=== PATIENT | female | born 2000 | race Caucasian/White ===

== ENCOUNTER 2020-10-28 04:23 | Emergency (ER) | payer OTHER, SELFPAY ==
--- NOTE | ~2020-10-28 | XR_ITS ---
XR finger 3rd RT min 2V DATE: 10/28/2020 04:55 INDICATION: Punched a wall. Pain and numbness of third digit TECHNIQUE: 3 views COMPARISON: None FINDINGS: No fracture or dislocation, periosteal reaction or bone destruction, radiopaque soft tissue foreign body. Joint spaces are preserved. IMPRESSION: Negative Reviewed, dictated and finalized at location A. DIRECTOR IMPRESSION: Negative
--- NOTE | ~2020-10-28 | XR_ITS ---
XR hand RT min 3V DATE: 10/28/2020 04:55 INDICATION: Punched a wall. Pain and numbness of third digit TECHNIQUE: 3 views COMPARISON: 05/03/2013 right hand FINDINGS: No fracture or dislocation, periosteal reaction or bone destruction. IMPRESSION: Negative Reviewed, dictated and finalized at location A. OLOGIC MODELER IMPRESSION: Negative
[2020-10-28 04:25] VITALS: BP 129/71; PULSE 97; RESP 18; TEMP 35.7; O2SAT 100
--- NOTE | 2020-10-28 04:36 | ED.UPPEXIN ---
HPI - Extremity Injury (Upper) General Chief Complaint: Extremity Injury, Upper Stated Complaint: punched a metal wall, finger broken Time Seen by Provider: 10/28/20 04:26 Source: RN notes reviewed History of Present Illness HPI narrative: Patient presents to emergency department from home for right hand pain. Patient states this evening approximately 7:30 PM she became upset and punched a wall she states that since that time she is had pain and swelling in her right third digit just proximal to the PIP joint but states is the night is gone she is had pain throughout the entire hand she denies any other trauma or injury states she does not take any medication for the pain Related Data Allergies Allergy/AdvReac Type Severity Reaction Status Date / Time clonazepam Allergy Intermediate Other Verified 10/28/20 04:29 buspirone Allergy Unknown Nausea and Verified 10/28/20 04:29 Vomiting lemon Allergy Hives Verified 10/28/20 04:29 Review of Systems Review of Systems: Narrative: Gen.: Denies fevers or chills Musculoskeletal: See HPI Neuro: Denies numbness, tingling, weakness Skin: Denies rash Endo: Denies DM PMFSH Past Medical History Medical History (Updated 10/28/20 @ 04:57 by Gennaro El DO) ADHD No pertinent past medical history Surgical History Surgical History History of adenoidectomy History of tonsillectomy S/p bilateral myringotomy with tube placement As child Social History Social History Smoking status: Current every day smoker Tobacco type: cigarettes Additional smoking assessment comments: No vaping for 2 months Gender identity (if verbalized by the patient): Female Sexual Orientation (if Verbalized by the Patient): Straight or Heterosexual Exam Narrative: Exam Narrative: APPEARANCE: No acute distress, nontoxic, resting in bed Eyes: EOMI HEENT: Normocephalic, atraumatic, RESPIRATORY: No respiratory distress MUSCULOSKELETAl: Tender to palpation diffusely over the right dorsal hand with increased tenderness over the dorsal third digit over the PIP and MCP joint swelling ecchymosis present pain with any flexion of the right third MCP PIP or DIP joint no tenderness of digits 1, 2, 4, 5 will full range of motion of these joints capillary refill less than 3 seconds neurovascular intact NEURO: Awake and alert. Following commands, speech normal, no focal deficits SKIN:: Warm, dry. Normal Color no rash or lesions Course Course Emergency Course: Discussed with patient results of workup and diagnosis. Discussed need for follow-up with primary care, proper use of medication, and reasons to return to the emergency department. Patient understands and agrees to current treatment plan Vital Signs Vital signs: Vital Signs Temperature 96.3 F L 10/28/20 04:25 Pulse Rate 97 10/28/20 04:25 Respiratory Rate 18 10/28/20 04:25 Blood Pressure 129/71 10/28/20 04:25 Pulse Oximetry 100 10/28/20 04:25 Temperature 96.3 F L 10/28/20 04:25 Pulse Rate 97 10/28/20 04:25 Respiratory Rate 18 10/28/20 04:25 Blood Pressure 129/71 10/28/20 04:25 Pulse Oximetry 100 10/28/20 04:25 Procedures Orthopedic Splinting/Casting Injury #1: Side: right Upper Extremity Immobilizer: aluminum form splint and finger (other) Splint: prefabricated Pre-Formed: metal foam finger splint Pre-Procedure Neuro Vascular Exam: normal Post-Procedure Neuro Vascular Exam: normal MDM - Extremity Injury (Upper) Imaging Data Attestation: I personally reviewed and interpreted this imaging study as follows: My impression: Hand finger x-ray reviewed by myself shows no acute fracture Discharge Plan Discharge Clinical Impression: Contusion of right middle finger Patient Disposition: Home, Self-Care Condition: Stable Instructions: Antibiotic Form, Contu
== END 2020-10-28 05:07 | disposition home or self-care (01) ==
LOC: ANHED 05:02
PROVIDERS: Emergency Provider Emergency Medicine
DX: S60.031A Contusion of right middle finger without damage to nail, initial encounter (principal); F17.210 Nicotine dependence, cigarettes, uncomplicated; W22.09XA Striking against other stationary object, initial encounter
CPT/HCPCS: 29130; 73130; 73140; 99283

== ENCOUNTER 2020-11-19 03:43 | Emergency (ER) | payer OTHER, SELFPAY ==
--- NOTE | ~2020-11-19 | CT_ITS ---
EXAMINATION: CT abdomen pelvis w con DATE: 11/19/2020 05:23 INDICATION: Lower abdominal and back pain. TECHNIQUE: Computed tomography (CT) of the abdomen and pelvis was performed with 100 mL Omnipaque-350 intravenous contrast. Automated exposure control and iterative reconstruction technique were employe d. The dose-length product was 1237.75 mGy-cm. COMPARISON: 09/26/2014 FINDINGS: 3-4 mm right lower lobe nodule which given size and patient age is most likely benign requiring no fu rther follow-up. Heart size is normal. No pericardial or pleural effusion. Focal hepatic steatosis at the ligamentum teres. Gallbladder, spleen, pancreas, bilateral adrenal glands and kidneys are normal . Bowels including the appendix are normal. Bladder, anteverted uterus and bilateral adnexa are bharathi l. Minimal likely physiologic free fluid in the pelvis. No abscess or free intraperitoneal gas. No pa thologically enlarged abdominal or pelvic lymphadenopathy. Bones are normal. IMPRESSION: 1. No acute intra-abdominal/pelvic process. Reviewed, dictated and finalized at location A.
[2020-11-19 03:50] VITALS: BP 127/66; PULSE 87; RESP 20; TEMP 36.4; O2SAT 99
[2020-11-19] MEDS: KETOROLAC 30 MG/ML VIAL (*BKC) IV PUSH (04:15)
[2020-11-19 04:26] LABS: Basophils Absolute Auto 0.1 K/mm3 (0.0-0.1); Basophils Percent Auto 0.7 % (0.2-1.2); Eosinophils Absolute Auto 0.2 K/mm3 (0-0.3); Eosinophils Percent Auto 2.3 % (0-4.4); Hematocrit 41.3 % (37.0-47.0); Hemoglobin 13.4 g/dL (12.0-15.0); Immature Granulocyte Absolute 0.06 K/mm3 (0.00-0.031); Immature Granulocyte Percent A 0.7 % (0-0.5); Lymphocytes Absolute Auto 4.34 K/mm3 (0.9-3.2); Lymphocytes Percent Auto 47.5 % (18.3-44.2); Mean Corpuscular HGB Conc 32.4 g/dl (32-36); Mean Corpuscular Hemoglobin 27.5 pg (26-34); Mean Corpuscular Volume 84.6 fl (80-100); Monocytes Absolute Auto 0.9 K/mm3 (0.1-0.6); Neutrophils Absolute Auto 3.6 K/mm3 (1.3-6.7); Neutrophils Percent Auto 38.8 % (45.5-73.1); Platelet Count Result 315 k/mm3 (150-375); Red Blood Count 4.88 M/mm3 (4.2-5.4); Red Cell Distribution Width 13.3 % (11.5-14.5); White Blood Count 9.1 K/mm3 (4.5-10.0)
[2020-11-19 04:35] LABS: Prothrombin Time 13.7 Seconds (11.1-14.7)
[2020-11-19 04:36] LABS: Partial Thromboplastin Time 28.4 SECONDS (22.3-36.8)
[2020-11-19 04:38] LABS: Alanine Aminotransferase 13 U/L (4-35); Albumin Level 4.1 g/dL (3.5-5.1); Alkaline Phosphatase 59 U/L (38-126); Anion Gap 10 mmol/L (8-16); Aspartate Amino Transferase 18 U/L (14-36); Bilirubin,Total 0.2 mg/dL (0.2-1.3); Blood Urea Nitrogen 12 mg/dL (7-17); Calcium 9.2 mg/dL (8.4-10.2); Carbon Dioxide 21 mmol/L (22-30); Chloride 107 mmol/L (98-107); Estimated CRCL calculation 108 ml/min; Estimated Glomerular Filt Rate > 60; Glucose 88 mg/dL (65-105); Lipase 25 U/L (23-300); Potassium 3.3 mmol/L (3.4-5.0); Sodium 138 mmol/L (137-145)
[2020-11-19 04:42] LABS: Add Urine Microscopic? YES; Appearance Urine Cloudy (Clear); Bacteria Urine Trace /hpf; Bilirubin Urine Negative (Negative); Blood Urine Negative (Negative); Color Urine Yellow (Yellow); Glucose Urine UA Negative (Negative); Ketones Urine Negative (Negative); Leukocyte Esterase Ur Negative LEU/UL (Negative); Mucus Urine Few /lpf; Nitrate Urine Negative (Negative); Protein Urine 1+ mg/dL (Negative); RBC Urine 0-2 /hpf (0-2); Specific Grav Ur 1.023 (1.001-1.035); Squamous Epithelial Cell Urine Moderate /hpf (Few); Urobilinogen Urine Negative mg/dL (<2.0); WBC Urine 0-3 /hpf
--- NOTE | 2020-11-19 06:00 | ED.GENADULT ---
HPI - General Adult General Chief complaint: Unspecified Stated complaint: sore tail bone x 2 days;hips numb;pooping blood Time Seen by Provider: 11/19/20 03:48 Source: RN notes reviewed History of Present Illness HPI narrative: Patient presents to emergency department from home for low back pain. Patient states pain began 2 days ago and progressively worsening pain is located in the bilateral lower back just above the tailbone and radiates to the bilateral legs. She states is associated with numbness in the bilateral lateral thighs only she denies any known trauma or injury but at work the day prior she had stepped up into a very high trashcan trying to stop down the trash she denies any direct trauma she denies any fevers or chills chest pain shortness of breath abdominal pain nausea vomiting diarrhea bowel or bladder incontinence she states that she has good sensation with wiping as well as in the posterior thighs and around the rectum. Patient does note she is also had intermittent blood in her stool for the past 1 year has had no definitive work-up for this states it is intermittent denies any bowel movement for the past 2 days patient says back pain is worse when she sits down is unable to sit directly on the buttocks and with bending over Related Data Allergies Allergy/AdvReac Type Severity Reaction Status Date / Time clonazepam Allergy Intermediate Other Verified 10/28/20 04:29 buspirone Allergy Unknown Nausea and Verified 10/28/20 04:29 Vomiting lemon Allergy Hives Verified 10/28/20 04:29 Review of Systems Review of Systems: Narrative: Gen.: Denies fevers or chills ENT: Denies congestion Respiratory: Denies shortness of breath or cough CV: Denies chest pain or palpitations GI: Denies abdominal pain nausea, emesis or diarrhea denies bowel or bladder incontinence Musculoskeletal: See HPI Neuro: Reports numbness in the lateral thighs only Skin: Denies rash Except as documented, all other systems reviewed and negative [facility] Past Medical History Medical History (Updated 11/19/20 @ 06:42 by Gennaro El DO) ADHD No pertinent past medical history Surgical History Surgical History History of adenoidectomy History of tonsillectomy S/p bilateral myringotomy with tube placement As child Social History Social History Smoking status: Current every day smoker Tobacco type: cigarettes Additional smoking assessment comments: No vaping for 2 months Gender identity (if verbalized by the patient): Female Exam Narrative: Exam Narrative: APPEARANCE: No acute distress, nontoxic, resting in bed Eyes: EOMI HEENT: Normocephalic, atraumatic, CV: Regular rate and rhythm without murmur RESPIRATORY: No respiratory distress. Clear to auscultation bilaterally. Abdomen: Soft and nontender, no rebound or guarding Rectal: No hemorrhoids or fissures good rectal tone full sensation around the rectum small amount of soft on stool that is Hemoccult negative MUSCULOSKELETAl: Moves all extremities, no clubbing cyanosis or edema Back: No midline lumbar tenderness to palpation or step-off, tender to palpation over bilateral paravertebral muscles L4-5 , pain increased with forward flexion no overlying erythema or ecchymosis NEURO: Awake and alert. Following commands, speech normal muscle strength 5 out of 5 bilateral lower extremities, bilateral patellar reflex 2+ patient does have a localized strength of numbness in the bilateral lateral thighs in the region of the L5 dermatome she has positive pinprick sensation over the anterior and medial thighs and posterior thighs bilaterally there is no saddle anesthesia normal sensation around the rectum SKIN:: Warm, dry. Normal Color no rash or lesions Course Course Emergency Course: Patient was given ambulate in the emergency department no difficulty. Did discuss with the patient
[2020-11-19 06:12] VITALS: BP 117/69; PULSE 73; RESP 18; O2SAT 100
[2020-11-19] MEDS: MORPHINE SULFATE (*CRX) 4 MG/ML INJ IV PUSH (06:13)
[2020-11-19 06:57] VITALS: BP 107/68; PULSE 65; RESP 17; O2SAT 98
== END 2020-11-19 06:59 | disposition home or self-care (01) ==
PROVIDERS: Emergency Provider Emergency Medicine
DX: M54.42 Lumbago with sciatica, left side (principal); M54.41 Lumbago with sciatica, right side; F17.210 Nicotine dependence, cigarettes, uncomplicated
CPT/HCPCS: 36415; 74177; 80053; 81001; 81025; 83690; 85025; 85610; 85730; 96374; 96375; 99284; J1885; J2270; Q9967

== ENCOUNTER 2021-01-01 02:27 | Emergency (ER) | payer OTHER, SELFPAY ==
--- NOTE | ~2021-01-01 | CT_ITS ---
EXAMINATION: CT soft tissue neck w con EXAM DATE: 01/01/2021 03:59 INDICATION: Throat pain. TECHNIQUE: Spiral CT of the neck was performed following intravenous injection of 75 mL Omnipaque 350 . Axial, coronal and sagittal images were reviewed. The dose-length product (DLP) for this examinat ion was 591.22 mGy-cm. The exposure was tailored according to patient size (auto mA exposure control ), and iterative reconstruction (ASIR) was used as additional dose reduction technique. There is no prior study for comparison. FINDINGS: The thyroid gland is unremarkable. The submandibular and parotid glands are symmetric. There is no cervical lymphadenopathy. There are no masses identified. The superior mediastinum is unremarkable. The airway is unremarkable. Parapharyngeal and pre-glottic fat planes are preserve d. The opacified vasculature is patent. The orbits are unremarkable. Visualized sinuses and mas toid air cells are well aerated. Lung apices are clear. There is cervical spondylosis. IMPRESSION: Unremarkable CT soft tissue neck w con exam. Reviewed, dictated and finalized at location B.
--- NOTE | ~2021-01-01 | XR_ITS ---
EXAMINATION: XR chest 1V portable INDICATION: Cough TECHNIQUE: Portable AP chest at 0306 hours COMPARISON: 08/01/2019 FINDINGS: There is minimal airspace opacity in the right middle lobe. There is no pleural effusion or pneumothorax. The cardiomediastinal silhouette is normal. The visualized bones and soft tissues are unremarkable. IMPRESSION: 1. Minimal airspace opacity of the right middle lobe, likely atelectasis. Reviewed, dictated and finalized at location A.
[2021-01-01 02:34] VITALS: BP 128/76; PULSE 96; RESP 18; TEMP 36.8; O2SAT 98
[2021-01-01 03:22] LABS: Basophils Percent Auto 0.4 % (0.2-1.2); Eosinophils Absolute Auto 0.1 K/mm3 (0-0.3); Eosinophils Percent Auto 1.1 % (0-4.4); Hematocrit 41.2 % (37.0-47.0); Hemoglobin 13.2 g/dL (12.0-15.0); Immature Granulocyte Absolute 0.07 K/mm3 (0.00-0.031); Immature Granulocyte Percent A 0.8 % (0-0.5); Lymphocytes Absolute Auto 3.52 K/mm3 (0.9-3.2); Lymphocytes Percent Auto 38.7 % (18.3-44.2); Mean Corpuscular Hemoglobin 26.9 pg (26-34); Mean Corpuscular Volume 84.1 fl (80-100); Monocytes Absolute Auto 0.8 K/mm3 (0.1-0.6); Monocytes Percent Auto 8.7 % (2.6-8.5); Neutrophils Absolute Auto 4.6 K/mm3 (1.3-6.7); Neutrophils Percent Auto 50.3 % (45.5-73.1); Platelet Count Result 310 k/mm3 (150-375); Red Cell Distribution Width 13.1 % (11.5-14.5); White Blood Count 9.1 K/mm3 (4.5-10.0)
[2021-01-01 03:33] LABS: Anion Gap 5 mmol/L (8-16); Blood Urea Nitrogen 13 mg/dL (7-17); Calcium 9.2 mg/dL (8.4-10.2); Carbon Dioxide 28 mmol/L (22-30); Chloride 108 mmol/L (98-107); Estimated CRCL calculation 121 ml/min; Estimated Glomerular Filt Rate > 60; Glucose 96 mg/dL (65-105); Potassium 3.6 mmol/L (3.4-5.0); Sodium 141 mmol/L (137-145)
--- NOTE | 2021-01-01 04:45 | ED.GENADULT ---
HPI - General Adult General Chief complaint: Unspecified Stated complaint: Losing voice, tasted blood when I coughed. Time Seen by Provider: 01/01/21 02:33 Source: RN notes reviewed History of Present Illness HPI narrative: Patient presents to emergency department from home for hoarse voice. Patient states symptoms began 2 days ago. States that she had progressively worsening hoarse voice as well as a cough productive of phlegm and a sore throat. Patient states that she has been having recurrent problems with losing her voice over the past year she was recently seen by ENT with a scope performed May started on omeprazole. Patient denies any fevers or chills loss of taste or smell chest pain shortness of breath abdominal pain nausea vomiting or any other symptoms Related Data Allergies Allergy/AdvReac Type Severity Reaction Status Date / Time clonazepam Allergy Intermediate Other Verified 01/01/21 02:39 buspirone Allergy Unknown Nausea and Verified 01/01/21 02:39 Vomiting lemon Allergy Hives Verified 01/01/21 02:39 Review of Systems Review of Systems: Narrative: Gen.: Denies fevers or chills Eyes: Denies eye pain or visual change ENT: See HPI Respiratory: Denies shortness of breath reports cough CV: Denies chest pain or palpitations GI: Denies abdominal pain nausea, emesis or diarrhea Musculoskeletal: Denies back pain or muscle pain Neuro: Denies numbness, tingling, weakness or focal weakness Skin: Denies rash Except as documented, all other systems reviewed and negative [facility] Past Medical History Medical History (Updated 01/01/21 @ 04:48 by Gennaro El DO) ADHD No pertinent past medical history Surgical History Surgical History (Reviewed 08/05/19 @ 16:23 by Ventura Etienne, [facility], ) History of adenoidectomy History of tonsillectomy S/p bilateral myringotomy with tube placement As child Social History Social History Smoking status: Current every day smoker Tobacco type: cigarettes Additional smoking assessment comments: No vaping for 2 months Gender identity (if verbalized by the patient): Female Exam Narrative: Exam Narrative: APPEARANCE: No acute distress, nontoxic, resting in bed EYES: EOMI HEENT: Normocephalic, atraumatic, nares patent or mucosa moist erythema exudate posterior pharynx uvula midline no trismus bilateral tonsils 2+ with no exudate hoarse voice Neck: Supple no cervical lymphadenopathy RESPIRATORY: No respiratory distress Clear to auscultation bilaterally with no rhonchi wheezing or rales. CARDIOVASCULAR: Regular rate and rhythm without murmurs rubs or gallops. ABDOMINAL: Soft, nontender, nondistended, no rebound or guarding MUSCULOSKELETAl: Moves all extremities. No clubbing, cyanosis or edema. NEURO: Awake and alert. Following commands, speech normal, no focal deficits SKIN:: Warm, dry. No rashes lesions or abrasions PSYCHIATRIC: Normal affect/mood, Course Course Emergency Course: Reviewed old records including recent visit by Dr. Spencer Discussed with patient results of workup and diagnosis. Discussed need for follow-up with primary care, proper use of medication, and reasons to return to the emergency department. Patient understands and agrees to current treatment plan Vital Signs Vital signs: Vital Signs Temperature 98.2 F 01/01/21 02:34 Pulse Rate 96 01/01/21 02:34 Respiratory Rate 18 01/01/21 02:34 Blood Pressure 128/76 01/01/21 02:34 Pulse Oximetry 98 01/01/21 02:34 Temperature 98.2 F 01/01/21 02:34 Pulse Rate 96 01/01/21 02:34 Respiratory Rate 18 01/01/21 02:34 Blood Pressure 128/76 01/01/21 02:34 Pulse Oximetry 98 01/01/21 02:34 Medical Decision Making Vital Signs Vital Signs: Vital Signs Temperature 98.2 F 01/01/21 02:34 Pulse Rate 96 01/01/21 02:34 Respiratory Rate 18 01/01/21 02:34 Blood Pressure 128/76 01/01/21 02:34 Pulse Oximetry 9
[2021-01-01] MEDS: methylPREDNISolone SOD SUCC 125 MG VIAL IV PUSH (04:50)
[2021-01-01 04:58] VITALS: BP 121/64; PULSE 89; RESP 16; O2SAT 98
== END 2021-01-01 04:52 | disposition home or self-care (01) ==
PROVIDERS: Emergency Provider Emergency Medicine
DX: J02.9 Acute pharyngitis, unspecified (principal); R49.0 Dysphonia; F17.210 Nicotine dependence, cigarettes, uncomplicated
CPT/HCPCS: 36415; 70491; 71045; 80048; 81025; 85025; 87081; 87880; 96374; 99284; J2930; Q9967

== ENCOUNTER 2021-04-21 00:56 | Emergency (ER) | payer OTHER, SELFPAY ==
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
[2021-04-21 01:00] VITALS: BP 133/76; PULSE 87; RESP 16; TEMP 36.7; O2SAT 100
[2021-04-21] MEDS: MORPHINE SULFATE (*CRX) 4 MG/ML INJ IM (03:30)
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
== END 2021-04-21 05:05 | disposition home or self-care (01) ==
PROVIDERS: Emergency Provider Emergency Medicine
DX: S73.101A Unspecified sprain of right hip, initial encounter (principal); F17.210 Nicotine dependence, cigarettes, uncomplicated; X50.9XXA Other and unspecified overexertion or strenuous movements or postures, initial encounter
CPT/HCPCS: 73502; 96372; 99283; J2270

== ENCOUNTER 2021-07-03 18:32 | Emergency (ER) | payer OTHER, SELFPAY ==
[2021-07-03 18:37] VITALS: BP 116/75; PULSE 73; RESP 16; TEMP 36.1; O2SAT 99
[2021-07-03 19:06] LABS: Basophils Absolute Auto 0.1 K/mm3 (0.0-0.1); Eosinophils Absolute Auto 0.2 K/mm3 (0-0.3); Eosinophils Percent Auto 2.2 % (0-4.4); Hematocrit 44.1 % (37.0-47.0); Hemoglobin 14.4 g/dL (12.0-15.0); Immature Granulocyte Absolute 0.06 K/mm3 (0.00-0.031); Immature Granulocyte Percent A 0.8 % (0-0.5); Lymphocytes Absolute Auto 3.91 K/mm3 (0.9-3.2); Lymphocytes Percent Auto 49.9 % (18.3-44.2); Mean Corpuscular HGB Conc 32.7 g/dl (32-36); Mean Corpuscular Hemoglobin 27.5 pg (26-34); Mean Corpuscular Volume 84.3 fl (80-100); Mean Platelet Volume 10.2 fl (7.4-10.4); Monocytes Absolute Auto 0.9 K/mm3 (0.1-0.6); Monocytes Percent Auto 10.8 % (2.6-8.5); Neutrophils Absolute Auto 2.8 K/mm3 (1.3-6.7); Neutrophils Percent Auto 35.3 % (45.5-73.1); Platelet Count Result 341 k/mm3 (150-375); Red Blood Count 5.23 M/mm3 (4.2-5.4); White Blood Count 7.8 K/mm3 (4.5-10.0)
[2021-07-03 19:14] LABS: Add Urine Microscopic? YES; Appearance Urine Cloudy (Clear); Bacteria Urine Trace /hpf; Bilirubin Urine Negative (Negative); Blood Urine Negative (Negative); Color Urine Yellow (Yellow); Glucose Urine UA Negative (Negative); Ketones Urine Negative (Negative); Leukocyte Esterase Ur Negative LEU/UL (Negative); Mucus Urine Few /lpf; Nitrate Urine Negative (Negative); Protein Urine Negative (Negative); Specific Grav Ur 1.027 (1.001-1.035); Squamous Epithelial Cell Urine Many /hpf (Few); Urobilinogen Urine Negative mg/dL (<2.0)
[2021-07-03 19:22] LABS: Alanine Aminotransferase 14 U/L (4-35); Albumin Level 5.8 g/dL (3.5-5.1); Alkaline Phosphatase 63 U/L (38-126); Anion Gap 11 mmol/L (8-16); Aspartate Amino Transferase 17 U/L (14-36); Bilirubin,Total 0.4 mg/dL (0.2-1.3); Blood Urea Nitrogen 12 mg/dL (7-17); Calcium 9.9 mg/dL (8.4-10.2); Carbon Dioxide 21 mmol/L (22-30); Chloride 107 mmol/L (98-107); Estimated CRCL calculation 125 ml/min; Estimated Glomerular Filt Rate > 60; Glucose 110 mg/dL (65-110); Lipase 36 U/L (23-300); Potassium 4.7 mmol/L (3.4-5.0); Sodium 139 mmol/L (137-145)
--- NOTE | 2021-07-03 20:19 | PC.NURSE ---
pt approached intake desk and states she is leaving and will come back if her symptoms get worse.
== END 2021-07-03 20:19 | disposition left against medical advice (07) ==
LOC: ANHED 20:22
PROVIDERS: Emergency Provider Emergency Medicine
DX: R11.2 Nausea with vomiting, unspecified (principal)
CPT/HCPCS: 36415; 80053; 81001; 83690; 85025; 87086; 87088; 99199

== ENCOUNTER 2021-12-14 09:28 | Emergency (ER) | payer OTHER, SELFPAY ==
--- NOTE | ~2021-12-14 | XR_ITS ---
EXAMINATION: XR_CERV2-3V_CR EXAM DATE: 12/14/2021 10:13 INDICATION: No known recent injury provided at this time. Pain of the neck. Woke up with pain. TECHNIQUE: Cervical spine frontal, lateral, lateral swimmers, and open-mouth odontoid projections. There is no prior study for comparison. FINDINGS: Minimal cervical dextrocurvature which could be positional, muscle spasm or minimal scoliosis. There is no evidence of acute cervical fracture. The odontoid process is intact. Pre-dens space is normal . Prevertebral soft tissue is normal. There are no soft tissue abnormalities identified. Vertebral body and disc heights are well-maintained. The vertebral bodies are aligned. No appreciable arth ropathy. IMPRESSION: Minimal dextrocurvature, could be positional, muscle spasm or minimal scoliosis. Reviewed, dictated and finalized at location B. IMPRESSION: Minimal dextrocurvature, could be positional, muscle spasm or minim al scoliosis.
--- NOTE | ~2021-12-14 | XR_ITS ---
EXAMINATION: XR shoulder RT min 2V EXAM DATE: 12/14/2021 10:13 INDICATION: Right shoulder pain. TECHNIQUE: The following right shoulder projections obtained: frontal projection with internal rotati on, frontal projection with external rotation, Grashey, and scapular Y view (4+ views). There is no prior study for comparison. FINDINGS: No evidence of right shoulder rotator cuff calcific tendinosis. Unremarkable right sidney ohumeral and acromioclavicular joints. There are no acute fractures or dislocations identified. Ther e is no subcutaneous gas. The soft tissue is unremarkable. There are no radiopaque foreign bodies. IMPRESSION: 1. Unremarkable XR shoulder RT min 2V exam. Reviewed, dictated and finalized at location B.
[2021-12-14 09:41] VITALS: BP 116/73; PULSE 88; RESP 18; TEMP 36.4; O2SAT 100
--- NOTE | 2021-12-14 09:54 | ED.NECK ---
HPI - Neck Pain/Injury General Chief Complaint: Neck Pain/Injury <Daija Miller PA-C - Last Filed: 12/14/21 10:41> Stated Complaint: neck and shoulder pain/recently in another ed <SANDY Venegas Last Filed: 12/14/21 10:41> Time Seen by Provider: 12/14/21 09:40 <SANDY Venegas Last Filed: 12/14/21 10:41> Source: patient <SANDY Venegas Last Filed: 12/14/21 10:41> Mode of arrival: ambulatory <SANDY Venegas Last Filed: 12/14/21 10:41> Limitations: no limitations <SANDY Venegas Last Filed: 12/14/21 10:41> History of Present Illness HPI Narrative: This is a 21-year-old female that presents to the emergency department for right-sided neck pain. Present over the last 4 days. No recent injury or trauma. Reports she woke up with this pain. The pain radiates into the right shoulder. Worse with movement of the shoulder. She was seen in the ED yesterday and told she had a muscle spasm. Was given anti-inflammatories and cyclobenzaprine. She was taking these yesterday with relief. She woke up today and the pain was still there. She has not taken anything for pain yet today. Denies fever, rash, erythema, edema, or numbness. <SANDY Venegas Last Filed: 12/14/21 10:41> Related Data Allergies/Adverse Reactions: Allergies Allergy/AdvReac Type Severity Reaction Status Date / Time clonazepam Allergy Intermediate Other Verified 04/21/21 04:30 buspirone Allergy Unknown Nausea and Verified 04/21/21 04:30 Vomiting lemon Allergy Hives Verified 04/21/21 04:30 <SANDY Venegas Last Filed: 12/14/21 10:41> Review of Systems Review of Systems: CONSTITUTIONAL: Denies fever SKIN: Denies rash MUSCULOSKELETAL: Reports joint pain, and myalgia. NEUROLOGIC: Denies numbness, or weakness. <Daija Miller PA-C - Last Filed: 12/14/21 10:41> All systems reviewed & are unremarkable except as noted in HPI and below <Daija Miller PA-C - Last Filed: 12/14/21 10:41> PMFSH Past Medical History Medical History: Medical History (Updated 12/14/21 @ 10:40 by Daija Miller PA-C) ADHD History of borderline personality disorder <Daija Miller PA-C - Last Filed: 12/14/21 10:41> Surgical History Surgical History: Surgical History History of adenoidectomy History of tonsillectomy S/p bilateral myringotomy with tube placement As child <Daija Miller PA-C - Last Filed: 12/14/21 10:41> Social History Social History: Social History Smoking status: Current every day smoker Tobacco type: cigarettes Additional smoking assessment comments: No vaping for 2 months Gender identity (if verbalized by the patient): Female Sexual Orientation (if Verbalized by the Patient): Straight or Heterosexual <Daija Miller PA-C - Last Filed: 12/14/21 10:41> Exam Narrative: GENERAL: Well-appearing, well-nourished, and in no acute distress. HEAD: Normocephalic, atraumatic. EYES: EOMI. NECK: Supple. No adenopathy or masses. Tender to palpation of the right trapezius musculature CHEST: Clear to auscultation. No respiratory distress. No wheezes rales or rhonchi HEART: Regular rate and rhythm. No murmur heard. Normal peripheral pulses. EXTREMITIES: Mildly decreased active ROM in the right shoulder due to pain. No edema, erythema or warmth. Strength equal in bilateral upper extremities (5/5). Normal radial pulses SKIN: Warm, dry, no rash. NEURO: No focal deficits. Alert and oriented x3. PSYCH: Normal mood and affect <Daija Miller PA-C - Last Filed: 12/14/21 10:41> Course Vital Signs Vital signs: Vital Signs Temperature 97.6 F 12/14/21 09:41 Pulse Rate 88 12/14/21 09:41 Respiratory Rate 18 12/14/21 09:41 Blood Pressure 116/73 12/14/21 09:41 Pulse Oximetry 100 12/14/21 09:41
[2021-12-14] MEDS: ACETAMINOPHEN 500 MG TABLET 1000 MG PO (10:23)
[2021-12-14] MEDS: KETOROLAC (*BKC) 60 MG/2 ML VIAL IM (10:23)
== END 2021-12-14 11:22 | disposition home or self-care (01) ==
PROVIDERS: Emergency Provider General Practice
DX: M54.2 Cervicalgia (principal); M62.838 Other muscle spasm; F17.210 Nicotine dependence, cigarettes, uncomplicated
CPT/HCPCS: 72040; 73030; 96372; 99283; A9270; J1885

== ENCOUNTER 2022-03-04 19:30 | Emergency (ER) | payer OTHER, SELFPAY ==
--- NOTE | ~2022-03-04 | XR_ITS ---
EXAM: XR shoulder LT min 2V DATE: 03/04/2022 19:52 HISTORY: LT SHOULDER PAIN NO INJURY . COMPARISON: None available. FINDINGS: Normal mineralization. No fracture or dislocation. No lytic or blastic lesion. Joint space s are maintained. No erosion or periosteal change. Soft tissues within normal limits. IMPRESSION: No acute osseous finding in the left shoulder. Reviewed, dictated and finalized at location K.
[2022-03-04 19:51] VITALS: BP 121/69; PULSE 91; RESP 16; TEMP 36.5; O2SAT 96
[2022-03-04] MEDS: ACETAMINOPHEN 500 MG TABLET 1000 MG PO (20:22)
[2022-03-04] MEDS: KETOROLAC 30 MG/ML VIAL (*BKC) IM (20:23)
--- NOTE | 2022-03-04 21:08 | ED.UPPEXIN ---
HPI - Extremity Injury (Upper) General Chief Complaint: Extremity Injury, Upper Stated Complaint: Left shoulder pain Time Seen by Provider: 03/04/22 19:58 Source: patient History of Present Illness HPI narrative: Patient presents with left shoulder pain. Ports her symptoms started today started today getting progressively worse she attempted her previous prescribed muscle relaxer without relief so she came to the ER for further evaluation. Pain is achy starts on the top shoulder radiates up into her neck and base of her skull. Reports she had a similar event on her right shoulder a few months ago was treated here in the ER and felt improved. She denies any trauma to the area she is unsure what is triggering these muscle spasms. Denies any focal numbness or weakness Related Data Allergies Allergy/AdvReac Type Severity Reaction Status Date / Time clonazepam Allergy Intermediate Other Verified 03/04/22 19:57 buspirone Allergy Unknown Nausea and Verified 03/04/22 19:57 Vomiting lemon Allergy Hives Verified 03/04/22 19:57 Review of Systems Review of Systems: CONSTITUTIONAL: Denies fever, chills, or sweats. EYES: Denies visual changes, redness, or discharge. ENT: Denies rhinorrhea, congestion, sore throat, or otalgia. CARDIOVASCULAR: Denies chest pain, palpitations, or edema. RESPIRATORY: Denies cough or dyspnea. GASTROINTESTINAL: Denies abdominal pain, nausea, vomiting, or diarrhea. GENITOURINARY: Denies dysuria or hematuria. SKIN: Denies rash or itching. MUSCULOSKELETAL: Denies back pain, or myalgia. NEUROLOGIC: Denies headache, numbness, dizziness, or weakness. PSYCHIATRIC: Denies anxiety or depression. All systems reviewed & are unremarkable except as noted in HPI and below PMFSH Past Medical History Medical History ADHD History of borderline personality disorder Surgical History Surgical History History of adenoidectomy History of tonsillectomy S/p bilateral myringotomy with tube placement As child Social History Social History Smoking status: Current every day smoker Tobacco type: cigarettes Additional smoking assessment comments: No vaping for 2 months Gender identity (if verbalized by the patient): Female Sexual Orientation (if Verbalized by the Patient): Straight or Heterosexual Exam Narrative: GENERAL: Well-appearing, well-nourished, and in no acute distress. HEAD: Normocephalic, atraumatic. EYES: PERRLA and EOMI. ENT: Nares clear, no rhinorrhea or epistaxis. Mucous membranes moist. NECK: Supple. No masses. No JVD EXTREMITIES: Normal range of motion. Diffuse tenderness along the superior aspect of the left trapezius no focal bony tenderness Limited range of motion due to pain of the left shoulder SKIN: Warm, dry, no rash. NEURO: No focal deficits. Alert and oriented x3. PSYCH: Normal mood and affect. Course Reevaluation(s) Reevaluation #1: Patient reports large improvement in symptoms patient is comfortable outpatient plan. Date: 03/04/22 Time: 21:11 Vital Signs Vital signs: Vital Signs Temperature 36.5 C 03/04/22 19:51 Pulse Rate 91 03/04/22 19:51 Respiratory Rate 16 03/04/22 19:51 Blood Pressure 121/69 03/04/22 19:51 Pulse Oximetry 96 03/04/22 19:51 Oxygen Delivery Room Air 03/04/22 19:51 Temperature 36.5 C 03/04/22 19:51 Pulse Rate 91 03/04/22 19:51 Respiratory Rate 16 03/04/22 19:51 Blood Pressure 121/69 03/04/22 19:51 Pulse Oximetry 96 03/04/22 19:51 Oxygen Delivery Room Air 03/04/22 19:51 MDM - Extremity Injury (Upper) MDM Narrative Medical decision making narrative: H&P as above, vss, pt looks clinically well, exam tenderness along the left trapezius, imaging without acute process, additional labs/img considered, symptomatic relief available as needed, on reeval
== END 2022-03-04 21:28 | disposition home or self-care (01) ==
PROVIDERS: Emergency Provider Emergency Medicine; PCP Family Medicine
DX: M25.512 Pain in left shoulder (principal); F17.210 Nicotine dependence, cigarettes, uncomplicated
CPT/HCPCS: 73030; 96372; 99283; A9270; J1885

== ENCOUNTER 2022-07-12 00:17 | Emergency (ER) | payer OTHER, SELFPAY ==
--- NOTE | ~2022-07-12 | XR_ITS ---
EXAMINATION: XR ankle LT min 3V DATE: 07/12/2022 00:56 INDICATION: Left ankle pain TECHNIQUE: Anteroposterior, lateral, mortise, and additional oblique view of the ankle were obtained. COMPARISON: None. FINDINGS: No fracture, dislocation, or subluxation. The bones, soft tissues, and joint spaces are nor mal. IMPRESSION: 1. No acute osseous abnormality. Reviewed, dictated and finalized at location B. [employer]
[2022-07-12 00:41] VITALS: BP 127/77; PULSE 92; RESP 20; TEMP 36.9; O2SAT 100
--- NOTE | 2022-07-12 03:33 | ED.GENADULT ---
HPI - General Adult General Chief complaint: Extremity Injury, Lower Stated complaint: left ankle pain Time Seen by Provider: 07/12/22 03:27 History of Present Illness HPI narrative: 22-year-old female presenting to the emergency department for evaluation of an injury to her left ankle. Patient reports she was walking in heels and rolled her left ankle. Patient states she was able to walk on the ankle for another 30 minutes after the initial injury. Patient is reporting left lateral ankle pain. Patient denies any other pain or injury. Patient did not fall and did not strike her head. Patient denies any proximal lower leg pain. Patient does have prior history of ankle sprain. Related Data Allergies Allergy/AdvReac Type Severity Reaction Status Date / Time clonazepam Allergy Intermediate Other Verified 07/12/22 03:20 buspirone Allergy Unknown Nausea and Verified 07/12/22 03:20 Vomiting lemon Allergy Hives Verified 07/12/22 03:20 Review of Systems Review of Systems: CONSTITUTIONAL: Denies fever, chills, or sweats. EYES: Denies visual changes, redness, or discharge. ENT: Denies rhinorrhea, congestion, sore throat, or otalgia. CARDIOVASCULAR: Denies chest pain, palpitations, or edema. RESPIRATORY: Denies cough or dyspnea. GASTROINTESTINAL: Denies abdominal pain, nausea, vomiting, or diarrhea. GENITOURINARY: Denies dysuria or hematuria. SKIN: Denies rash or itching. MUSCULOSKELETAL: See HPI NEUROLOGIC: Denies headache, numbness, or weakness. PMFSH Past Medical History Medical History ADHD History of borderline personality disorder Surgical History Surgical History History of adenoidectomy History of tonsillectomy S/p bilateral myringotomy with tube placement As child Social History Social History Smoking status: Current every day smoker Tobacco type: cigarettes Additional smoking assessment comments: No vaping for 2 months Gender identity (if verbalized by the patient): Female Sexual Orientation (if Verbalized by the Patient): Straight or Heterosexual Exam Narrative: APPEARANCE: Well appearing, no pain, no distress, well-nourished. HEAD: normocephalic, atraumatic. EYES: PERRLA/EOMI, conjunctivae clear. NOSE: Normal no drainage NECK: Supple. No adenopathy, no masses. MUSCULOSKELETAL: Moves all extremities. Tenderness to left lateral ankle with associated edema. No proximal tib-fib tenderness. No medial tenderness to palpation of the ankle. No tenderness to the foot. NEURO: Alert. Cranial nerves II through XII intact. Grossly intact SKIN: Warm, dry. Normal Color PSYCHIATRIC: Normal affect/mood. Course Course Emergency Course: Patient was updated the results of the x-ray and on the treatment plan for home. All questions and concerns were addressed. Vital Signs Vital signs: Vital Signs Temperature 98.4 F 07/12/22 00:41 Pulse Rate 92 07/12/22 00:41 Respiratory Rate 20 07/12/22 00:41 Blood Pressure 127/77 07/12/22 00:41 Pulse Oximetry 100 07/12/22 00:41 Oxygen Delivery Room Air 07/12/22 00:41 Temperature 98.4 F 07/12/22 00:41 Pulse Rate 77 07/12/22 03:52 Respiratory Rate 16 07/12/22 03:52 Blood Pressure 108/62 07/12/22 03:52 Pulse Oximetry 97 07/12/22 03:52 Oxygen Delivery Room Air 07/12/22 00:41 Medical Decision Making Vital Signs Vital Signs: Vital Signs Temperature 98.4 F 07/12/22 00:41 Pulse Rate 92 07/12/22 00:41 Respiratory Rate 20 07/12/22 00:41 Blood Pressure 127/77 07/12/22 00:41 Pulse Oximetry 100 07/12/22 00:41 Oxygen Delivery Room Air 07/12/22 00:41 Temperature 98.4 F 07/12/22 00:41 Pulse Rate 77 07/12/22 03:52 Respiratory Rate 16 07/12/22 03:52 Blood Pressure 108/62 07/12/22 03:52 Pulse Oximetry 97 07/12/22 03:52 Oxygen D
[2022-07-12 03:52] VITALS: BP 108/62; PULSE 77; RESP 16; O2SAT 97
== END 2022-07-12 03:53 | disposition home or self-care (01) ==
PROVIDERS: Emergency Provider Emergency Medicine; PCP Family Medicine
DX: S93.402A Sprain of unspecified ligament of left ankle, initial encounter (principal); X50.9XXA Other and unspecified overexertion or strenuous movements or postures, initial encounter; F17.210 Nicotine dependence, cigarettes, uncomplicated
CPT/HCPCS: 73610; 99283

== ENCOUNTER 2023-11-05 12:06 | Observation (INO) | payer OTHER, SELFPAY ==
[2023-11-05] VITALS (8 sets, daily range): BP systolic 124; BP diastolic 72; PULSE 68–82; RESP 18; O2SAT 98–99; BMI 43.9
--- NOTE | 2023-11-05 12:39 | PC.NURSE ---
This RN called and spoke with Dr. Joseph Bejarano regarding pt complaints. MD orders to obtain a reactive NST then to discharge pt to ER for further evaluation. RN repeated orders back to confirm.
--- NOTE | 2023-11-05 12:42 | OBADM ---
This patient, Eileen López, admitted to the OB room 117 for observation for numbness and tingling in legs and arms. Patient/family oriented to hospital policies and general routines including ID bracelet, bed and alarms, visiting hours, pain management, procedures, bathroom and other care routines, personal items, smoking policy, room service/diet, and visiting hours. Patient/Family are encouraged to report perceived risks to care and to ask questions if they do not understand what they are told or what they should do.
--- NOTE | 2023-11-06 11:37 | PM.OBTRLD ---
OB - Triage/Final Diagnosis Visit Information Reason for evaluation: decreased movement Comments/Additional reasons for admission: I have assessed the risk for this patient, Eileen López, and determined that she would benefit from observation care. Evaluation Vital signs: Vital Signs - 24 hr 11/05/23 12:28 11/05/23 12:30 11/05/23 12:33 Pulse Rate 81 Respiratory Rate Blood Pressure 124/72 Pulse Oximetry 98 99 Oxygen Delivery 11/05/23 12:38 11/05/23 12:43 11/05/23 12:48 Pulse Rate Respiratory Rate Blood Pressure Pulse Oximetry 99 98 98 Oxygen Delivery 11/05/23 12:42 Pulse Rate 68 Respiratory Rate 18 Blood Pressure Pulse Oximetry Oxygen Delivery Room Air
== END 2023-11-05 13:10 | disposition home or self-care (01) ==
PROVIDERS: Admitting Provider Obstetrics & Gynecology; PCP Family Medicine; Visit Provider Obstetrics & Gynecology
DX: O36.8120 Decreased fetal movements, second trimester, not applicable or unspecified (principal); Z3A.26 26 weeks gestation of pregnancy
CPT/HCPCS: 59025; G0378; G0379

== ENCOUNTER 2024-01-17 23:33 | Observation (INO) | payer OTHER, SELFPAY ==
[2024-01-17 23:31] VITALS: BP 105/48; PULSE 84
--- NOTE | 2024-01-17 23:41 | OBADM ---
This patient, Eileen López, admitted to the OB room Labor/Delivery/Recovery 106 for observation. Patient/family oriented to hospital policies and general routines including ID bracelet, bed and alarms, visiting hours, pain management, procedures, bathroom and other care routines, personal items, smoking policy, room service/diet, and visiting hours. Patient/Family are encouraged to report perceived risks to care and to ask questions if they do not understand what they are told or what they should do.
[2024-01-17 23:45] VITALS: BP 110/47; PULSE 85
[2024-01-17 23:45] LABS: Appearance Urine Clear (Clear); Bilirubin Urine Negative (Negative); Blood Urine Negative (Negative); Color Urine Yellow (Yellow); Glucose Urine UA Negative (Negative); Ketones Urine Negative (Negative); Leukocyte Esterase Ur Negative LEU/UL (Negative); Nitrate Urine Negative (Negative); Protein Urine Negative (Negative); Specific Grav Ur 1.015 (1.001-1.035); Urobilinogen Urine 0.2 mg/dL (<2.0); pH Urine 5.5 (5.0-9.0)
[2024-01-17 23:47] LABS: Add Urine Microscopic? NO
--- NOTE | 2024-01-17 23:47 | PC.NURSE ---
RN discussed pts current smoking status. pt stated she smoked a cigarette and marijuana prior to her arrival to L&D. Pt educated on risks of smoking in . pt denies any questions or concerns a this time.
--- NOTE | 2024-01-18 00:27 | PC.NURSE ---
Addendum entered by Mounika Brandt RN 01/18/24 00:34: Pt left discharge instructions in room. Original Note: [id number]- Dr. Franco called and notified of pts arrival to L&D with complaints of contractions and pelvic pressure. Dr. Franco notified no contractions per palpation or toco. MD made aware that pt was marking movement. MD notified of latest UA results. MD notified that pt admitted to smoking marijuana and a cigarette prior to presentation at hospital and minimal variability in FHR that has since resolved. MD made aware that pt currently states that her contractions stopped . Orders received to discharge pt. 0008- pt departed L&D with significant other. All questions and concerns have been addressed and answered. Pt verbalizes understanding. No distress noted in patient.
--- NOTE | 2024-01-26 11:53 | PM.OBTRLD ---
OB - Triage/Final Diagnosis Visit Information Comments/Additional reasons for admission: I have assessed the risk for this patient, Eileen López, and determined that she would benefit from observation care. Evaluation Laboratory results: Laboratory Tests 01/17/24 23:37 Urine Color Yellow Urine Appearance Clear Urine pH 5.5 Ur Specific [place] 1.015 Urine Protein Negative Urine Glucose (UA) Negative Urine Ketones Negative Ur Blood (Man) Negative Urine Nitrate Negative Urine Bilirubin Negative Urine Urobilinogen 0.2 Leukocyte Esterase Rfl Negative Final Diagnosis (1) False labor: Code(s): O47.9 - False labor, unspecified Status: Acute
== END 2024-01-18 00:08 | disposition home or self-care (01) ==
PROVIDERS: Admitting Provider Obstetrics & Gynecology; PCP Family Medicine; Visit Provider Obstetrics & Gynecology
DX: O47.9 False labor, unspecified (principal); Z3A.00 Weeks of gestation of pregnancy not specified
CPT/HCPCS: 59025; 81003; 99199

== ENCOUNTER 2024-01-27 11:07 | Outpatient (CLI) | payer OTHER, SELFPAY ==
[2024-01-27 11:45] VITALS: BP 110/62; PULSE 73
[2024-01-27 11:47] LABS: Basophils Percent Auto 0.3 % (0.2-1.2); Eosinophils Absolute Auto 0.1 K/mm3 (0-0.3); Eosinophils Percent Auto 0.7 % (0-4.4); Hematocrit 39.7 % (37.0-47.0); Hemoglobin 13.1 g/dL (12.0-15.0); Immature Granulocyte Absolute 0.21 K/mm3 (0.00-0.031); Immature Granulocyte Percent A 1.7 % (0-0.5); Lymphocytes Absolute Auto 2.77 K/mm3 (0.9-3.2); Lymphocytes Percent Auto 23.1 % (18.3-44.2); Mean Corpuscular Hemoglobin 27.2 pg (26-34); Mean Corpuscular Volume 82.5 fl (80-100); Mean Platelet Volume 10.3 fl (7.4-10.4); Monocytes Absolute Auto 0.9 K/mm3 (0.1-0.6); Monocytes Percent Auto 7.2 % (2.6-8.5); Platelet Count Result 299 k/mm3 (150-375); Red Blood Count 4.81 M/mm3 (4.2-5.4); Red Cell Distribution Width 14.2 % (11.5-14.5)
[2024-01-27 11:50] LABS: Appearance Urine Cloudy (Clear); Bacteria Urine 2+ /hpf; Bilirubin Urine Negative (Negative); Blood Urine Negative (Negative); Color Urine Yellow (Yellow); Glucose Urine UA Negative (Negative); Ketones Urine Negative (Negative); Leukocyte Esterase Ur Trace LEU/UL (Negative); Nitrate Urine Negative (Negative); Non Pathogenic Casts 0-2; Protein Urine Negative (Negative); RBC Urine 0-2 /hpf (0-2); Specific Grav Ur 1.022 (1.001-1.035); Squamous Epithelial Cell Urine Moderate /hpf (Few); Urobilinogen Urine 0.2 mg/dL (<2.0); WBC Urine 0-5 /hpf (0-3)
[2024-01-27 11:56] LABS: Add Urine Microscopic? YES
[2024-01-27 11:58] LABS: Alanine Aminotransferase 20 U/L (6-35); Albumin Level 3.6 g/dL (3.5-5.1); Alkaline Phosphatase 137 U/L (38-126); Anion Gap 6 mmol/L (4-12); Aspartate Amino Transferase 18 U/L (14-36); Bilirubin,Total 0.4 mg/dL (0.2-1.3); Blood Urea Nitrogen 9 mg/dL (7-17); Calcium 9.1 mg/dL (8.4-10.2); Carbon Dioxide 19 mmol/L (22-30); Chloride 109 mmol/L (98-107); Estimated Glomerular Filt Rate > 60; Glucose 96 mg/dL (65-110); Potassium 3.8 mmol/L (3.4-5.0); Sodium 134 mmol/L (137-145); Uric Acid 5.3 mg/dL (2.5-7.5)
[2024-01-27 12:00] VITALS: BP 125/77; PULSE 70
[2024-01-27 12:01] VITALS: BP 110/62; PULSE 73
[2024-01-27 12:15] VITALS: BP 111/59; PULSE 70
[2024-01-27 12:15] LABS: Creatinine Urine 138.9 mg/dL
[2024-01-27 12:19] LABS: Total Protein Urine Random < 5 mg/dL; Ur Ttl Prot Creatinine Ratio < 0.04 mg/mg (0-0.20)
--- NOTE | 2024-01-27 12:28 | PM.OBTRLD ---
OB - Triage/Final Diagnosis Visit Information Date of evaluation: 01/27/24 Reason for evaluation: other (gestational htn) Comments/Additional reasons for admission: I have assessed the risk for this patient, Eileen López, and determined that she would benefit from observation care. Evaluation Laboratory results: Laboratory Tests 01/27/24 11:33 WBC 12.0 H RBC 4.81 Hgb 13.1 Hct 39.7 MCV 82.5 MCH 27.2 MCHC 33.0 RDW 14.2 Plt Count 299 MPV 10.3 Immature Gran % (Auto) 1.7 H Neut % (Auto) 67.0 Lymph % (Auto) 23.1 [place] % (Auto) 7.2 Eos % (Auto) 0.7 Baso % (Auto) 0.3 Lymph # (Auto) 2.77 [place] # (Auto) 0.9 H Eos # (Auto) 0.1 Baso # (Auto) 0.0 Abs Immat Gran (auto) 0.21 H Absolute Neuts (auto) 8.0 H Absolute Nucleated RBC 0.000 Nucleated RBC % 0.0 Sodium 134 L Potassium 3.8 Chloride 109 H Carbon Dioxide 19 L Anion Gap 6 BUN 9 Creatinine 0.60 L Estim Creat Clear Calc Not Reportable Estimated GFR > 60 Glucose 96 Uric Acid 5.3 Calcium 9.1 Total Bilirubin 0.4 AST 18 ALT 20 Alkaline Phosphatase 137 H Total Protein 7.0 Albumin 3.6 Urine Color Yellow Urine Appearance Cloudy H Urine pH 6.0 Ur Specific [place] 1.022 Urine Protein Negative Urine Glucose (UA) Negative Urine Ketones Negative Ur Blood (Man) Negative Urine Nitrate Negative Urine Bilirubin Negative Urine Urobilinogen 0.2 Leukocyte Esterase Rfl Trace H Urine RBC 0-2 Urine WBC 0-5 Ur Squamous Epith Cells Moderate Urine Bacteria 2+ H Urine Casts 0-2 U Random Total Protein < 5 Urine Creatinine 138.9 Protein/Creat Ratio 2 < 0.04 Vital signs: Vital Signs - 24 hr 01/27/24 12:01 01/27/24 11:45 01/27/24 12:00 Pulse Rate 73 73 70 Blood Pressure 110/62 125/77 Blood Pressure [Left Arm] 110/62 01/27/24 12:15 Pulse Rate 70 Blood Pressure 111/59 L Blood Pressure [Left Arm]
== END 2024-01-27 12:23 | disposition home or self-care (01) ==
LOC: ANHOBOP 11:15 → ANHOBPP 11:17
PROVIDERS: PCP Family Medicine; Visit Provider Obstetrics & Gynecology
DX: O13.9 Gestational [pregnancy-induced] hypertension without significant proteinuria, unspecified trimester (principal); Z3A.00 Weeks of gestation of pregnancy not specified
CPT/HCPCS: 36415; 59025; 80053; 81001; 82570; 84156; 84550; 85025; 99199

== ENCOUNTER 2024-02-04 16:41 | Inpatient (IN) | payer OTHER, SELFPAY ==
[2024-02-04] VITALS (36 sets, daily range): BP systolic 92–121; BP diastolic 38–72; PULSE 65–104; O2SAT 95–97; BMI 43.9
[2024-02-04 17:21] LABS: Basophils Percent Auto 0.3 % (0.2-1.2); Eosinophils Absolute Auto 0.1 K/mm3 (0-0.3); Eosinophils Percent Auto 0.7 % (0-4.4); Hematocrit 37.2 % (37.0-47.0); Hemoglobin 12.3 g/dL (12.0-15.0); Immature Granulocyte Absolute 0.19 K/mm3 (0.00-0.031); Immature Granulocyte Percent A 1.8 % (0-0.5); Lymphocytes Absolute Auto 2.56 K/mm3 (0.9-3.2); Lymphocytes Percent Auto 23.8 % (18.3-44.2); Mean Corpuscular HGB Conc 33.1 g/dl (32-36); Mean Corpuscular Hemoglobin 27.3 pg (26-34); Mean Corpuscular Volume 82.5 fl (80-100); Mean Platelet Volume 10.8 fl (7.4-10.4); Monocytes Absolute Auto 0.8 K/mm3 (0.1-0.6); Monocytes Percent Auto 7.8 % (2.6-8.5); Neutrophils Percent Auto 65.6 % (45.5-73.1); Platelet Count Result 251 k/mm3 (150-375); Red Blood Count 4.51 M/mm3 (4.2-5.4); Red Cell Distribution Width 14.1 % (11.5-14.5); White Blood Count 10.7 K/mm3 (4.5-10.0)
--- NOTE | 2024-02-04 17:28 | LDADM ---
This patient, Eileen López, was admitted to Labor/Delivery/Recovery 105 on 02/04/24 at 16:41. Plans for labor, pain management and were discussed with patient. Patient/family oriented to hospital policies and general routines including ID bracelet, bed and alarms, visiting hours, pain management, procedures, bathroom and other care routines, personal items, smoking policy, room service/diet and guest tray routines, security routines, and visiting hours. Patient/Family are encouraged to report perceived risks to care and to ask questions if they do not understand what they are told or what they should do. See OBIX for further documentation.
[2024-02-04] MEDS: DINOPROSTONE 10 MG VAG INSERT VAGINAL (18:03)
--- NOTE | 2024-02-04 19:15 | WPDANESEPP ---
Anes - Eval Pre Procedure Procedure: Labor epidural Date/Time: 02/04/24 19:15 Pre Op Diagnosis: Iol Patient Data Age: 23 Gender: F Height: 1.57 m Weight: 109 kg Last Vital Signs Pulse 65 02/04/24 19:00 BP 117/72 02/04/24 19:00 Pulse Ox 97 02/04/24 19:13 O2 Del Method Room Air 02/04/24 17:27 Allergies Allergy/AdvReac Type Severity Reaction Status Date / Time clonazepam Allergy Intermediate Other Verified 02/04/24 17:25 lemon Allergy Hives Verified 02/04/24 17:25 buspirone AdvReac Unknown Nausea and Verified 02/04/24 17:25 Vomiting red dye AdvReac Vomiting Verified 02/04/24 17:25 Home Medications Medication Instructions Recorded Confirmed Type labetalol 100 mg tablet 100 mg PO Q12H 11/05/23 02/04/24 History vitamin-ferrous fumarate 1 tablet PO DAILY 11/05/23 02/04/24 History 28 mg iron-folic acid 800 mcg tablet ( Vitamins with Minerals) Laboratory Tests 02/04/24 17:04 WBC 10.7 H K/mm3 (4.5-10.0) RBC 4.51 M/mm3 (4.2-5.4) Hgb 12.3 g/dL (12.0-15.0) Hct 37.2 % (37.0-47.0) MCV 82.5 fl (80-100) MCH 27.3 pg (26-34) MCHC 33.1 g/dl (32-36) RDW 14.1 % (11.5-14.5) Plt Count 251 k/mm3 (150-375) MPV 10.8 H fl (7.4-10.4) Immature Gran % (Auto) 1.8 H % (0-0.5) Neut % (Auto) 65.6 % (45.5-73.1) Lymph % (Auto) 23.8 % (18.3-44.2) [place] % (Auto) 7.8 % (2.6-8.5) Eos % (Auto) 0.7 % (0-4.4) Baso % (Auto) 0.3 % (0.2-1.2) Lymph # (Auto) 2.56 K/mm3 (0.9-3.2) [place] # (Auto) 0.8 H K/mm3 (0.1-0.6) Eos # (Auto) 0.1 K/mm3 (0-0.3) Baso # (Auto) 0.0 K/mm3 (0.0-0.1) Abs Immat Gran (auto) 0.19 H K/mm3 (0.00-0.031) Absolute Neuts (auto) 7.0 H K/mm3 (1.3-6.7) Absolute Nucleated RBC 0.000 K/mm3 (0.0-0.012) Nucleated RBC % 0.0 % (0.0-0.2) RPR Pending HIV 1&2 Ab/P24 Ag 4thGn Pending Blood Type A Positive Antibody Screen Negative Patient hx anesthesia problems: none Family hx anesthesia problems: none Results Review: All pre-operative results and documents have been reviewed as part of the pre-operative evaluation. [facility] Past Medical History Medical History (Updated 02/04/24 @ 19:16 by Rita Zhao CRNA) ADHD Anxiety and depression Asthma History of borderline personality disorder PIH ( induced hypertension) Surgical History Surgical History History of adenoidectomy History of tonsillectomy S/p bilateral myringotomy with tube placement As child Family History Family History Mother Diabetes mellitus Father Bipolar 1 disorder Other Cancer Social History Social History Smoking status: Current every day smoker Tobacco type: e-cigarettes/vaping Second hand tobacco smoke exposure: Yes Additional smoking assessment comments: No vaping for 2 months Substance use: never Do You Feel Safe in your Home?: Yes Lack of Transportation: No Lack of Food: Never True Current Housing: I Have Housing Concerned About Future Housing: No Difficulty Paying Gas/Electric Bills: No Difficulty Paying for Meds: No Currently Unemployed: No Education: High School Diploma/GED Difficulty w/ Childcare or Family Care: No Gender identity (if verbalized by the patient): Female Sexual Orientation (if Verbalized by the Patient): Straight or Heterosexual Spiritual care concerns: No Exam Day of Procedure 02/04/24 19:15 Patient weight: morbidly obese Heart: regular rate and rhythm Lungs: clear to auscultation Airway: Mallampati scale Neurological: alert and oriented
[2024-02-04 20:06] LABS: HIV 1/2 Ab P24 Ag Result Negative (Negative)
[2024-02-05] VITALS (289 sets, daily range): BP systolic 86–154; BP diastolic 44–101; PULSE 53–147; RESP 20; TEMP 36.3–37.4; O2SAT 85–100
[2024-02-05] MEDS: OXYTOCIN 30 UNITS/NS 500 ML 30 UNITS/500 ML BAG 6 UNITS IV CONT (05:44)
--- NOTE | 2024-02-05 06:37 | WPDOBADMIT ---
Obstetrics - Admit Note Admission Note: record reviewed. Additions to the history and/or subsequent changes in the physical findings follow. 23 y/o G1 at 40 weeks here for scheduled induction of labor. GBS neg. AVSS NST reactive TOCO: contractions every 2-3 min ABD soft, nontender, gravid, vertex EXT nontender Cervix 3/50/-2. AROM with clear fluid. IUPC placed. A: IUP at term desiring induction of labor. P: Oxytocin. Anticipate .
[2024-02-05] MEDS: ONDANSETRON INJ 4 MG/2 ML VIAL IV PUSH (06:50)
[2024-02-05] MEDS: LACTATED RINGERS 1,000 ML 125 ML IV CONT ×2 (07:18→12:52)
--- NOTE | 2024-02-05 12:19 | PM.OBPNLAB ---
Pain Control Date/time seen: 02/05/24 12:19 Comfortable. Pelvic Exam Dilation (cm): 4 Effacement (%): 100 station: -2 Contractions Contraction frequency: 3 Contraction pattern: Regular Status status: Category l Assessment and Plan Comments: Continue labor.
--- NOTE | 2024-02-05 16:29 | PM.OBPNLAB ---
Pain Control Date/time seen: 02/05/24 16:29 Comments: Comfortable. Pelvic Exam Dilation (cm): 7 Effacement (%): 100 station: -1 Contractions Contraction frequency: 3 Contraction pattern: Regular Status status: Category l Assessment and Plan Comments: Continue labor.
--- NOTE | 2024-02-05 16:31 | PM.IMHP ---
H&P: HPI History of Present Illness Date/Time: 02/05/24 16:31 Chief Complaint: Here for induction of labor Narrative: 23 y/o G1 at 40 weeks here for elective induction of labor. Had Cervidil last night, was withdrawn this morning. Now on oxytocin. Comfortable with epidural. GBS neg. EFW 4 weeks ago 5#14oz. Review of Systems Review of Systems: All systems reviewed & are unremarkable except as noted in HPI and below PMFSH Past Medical History Medical History ADHD Anxiety and depression Asthma History of borderline personality disorder PIH ( induced hypertension) Surgical History Surgical History History of adenoidectomy History of tonsillectomy S/p bilateral myringotomy with tube placement As child Family History Family History Mother Diabetes mellitus Father Bipolar 1 disorder Other Cancer Social History Social History Smoking status: Current every day smoker Tobacco type: e-cigarettes/vaping Second hand tobacco smoke exposure: Yes Additional smoking assessment comments: No vaping for 2 months Substance use: never Do You Feel Safe in your Home?: Yes Lack of Transportation: No Lack of Food: Never True Current Housing: I Have Housing Concerned About Future Housing: No Difficulty Paying Gas/Electric Bills: No Difficulty Paying for Meds: No Currently Unemployed: No Education: High School Diploma/GED Difficulty w/ Childcare or Family Care: No Gender identity (if verbalized by the patient): Female Sexual Orientation (if Verbalized by the Patient): Straight or Heterosexual Spiritual care concerns: No Meds Home Medications and Allergies Home Medications Medication Instructions Recorded Confirmed Type labetalol 100 mg tablet 100 mg PO Q12H 11/05/23 02/04/24 History vitamin-ferrous fumarate 1 tablet PO DAILY 11/05/23 02/04/24 History 28 mg iron-folic acid 800 mcg tablet ( Vitamins with Minerals) Allergies Allergy/AdvReac Type Severity Reaction Status Date / Time clonazepam Allergy Intermediate Other Verified 02/04/24 17:25 lemon Allergy Hives Verified 02/04/24 17:25 buspirone AdvReac Unknown Nausea and Verified 02/04/24 17:25 Vomiting red dye AdvReac Vomiting Verified 02/04/24 17:25 Vital Signs Vital Signs - 24 hr 02/04/24 17:05 02/04/24 17:15 02/04/24 17:30 Temperature Pulse Rate 91 89 84 Blood Pressure 116/47 L 120/48 L 112/60 Pulse Oximetry Oxygen Delivery 02/04/24 17:45 02/04/24 18:08 02/04/24 18:13 Temperature Pulse Rate 82 Blood Pressure 119/42 L Pulse Oximetry 97 97 Oxygen Delivery 02/04/24 18:15 02/04/24 18:18 02/04/24 18:23 Temperature Pulse Rate 89 Blood Pressure 103/42 L Pulse Oximetry 97 97 Oxygen Delivery 02/04/24 18:28 02/04/24 18:30 02/04/24 18:33 Temperature Pulse Rate 79 Blood Pressure 92/38 L Pulse Oximetry 96 96 Oxygen Delivery 02/04/24 18:38 02/04/24 18:43 02/04/24 18:45 Temperature Pulse Rate 76 Blood Pressure 95/56 L Pulse Oximetry 96 96 Oxygen Delivery 02/04/24 18:48 02/04/24 18:53 02/04/24 18:58 Temperature Pulse Rate Blood Pressure Pulse Oximetry 96 96 96 Oxygen Delivery 02/04/24 19:00 02/04/24 19:03 02/04/24 19:08 Temperature Pulse Rate 65 Blood Pressure 117/72 Pulse Oximetry 96 96 Oxygen Delivery 02/04/24 19:13 02/04/24 19:15 02/04/24 19:18 Temperature Pulse Rate 84 Blood Pressure 116/67 Pulse Oximetry 97 96 Oxygen Delivery 02/04/24 19:23 02/04/24 19:28 02/04/24 19:30 Temperature Pulse Rate 79 Blood Pressure 121/66 Pulse Oximetry 95 96 Oxygen Delivery 02/04/24 19:33 02/04/24 19:38 02/04/24
[2024-02-05 16:44] LABS: Rapid Plasma Reagin Non-Reactive (NonReactive)
[2024-02-05] MEDS: OXYTOCIN 30 UNITS/NS 500 ML 30 UNITS/500 ML BAG 999 UNITS IV CONT (20:00)
--- NOTE | 2024-02-05 20:16 | P.PCNOB_ITS ---
OB - Vaginal Delivery Note Procedure Delivery date: 02/05/24 Events: Elective Induction of Labor Induction method: Per Cervidil Protocol Delivery augmentation: Rupture of Membranes and Pitocin Delivery monitor: External FHT, External Uterine and Internal Uterine Route of delivery: Laceration Description: Perineal - 1st Degree Delivery repair: vicryl (3-0) Specimen: Yes (cord blood) Quantitative Blood Loss (ml): 85 Anesthesia type: Local (1% lidocaine) Disposition: PACU Complications: Other complications (shoulder dystocia) Narrative: 23 y/o G1 at 40 weeks gestation who presented to the hospital for induction of labor. Cervidil was placed overnight, then withdrawn the following morning. Oxytocin was administered intravenously. Amniotomy was performed with return of clear fluid. She received an epidural for pain control. Her labor progressed and her cervix dilated completely. She pushed with good effort and delivered the 's head to the perineum in ROP position. A loose nuchal cord was noted. A shoulder dystocia was encountered, and traction / fundal pressure were strictly avoided. McRobert's maneuver was employed, and the posterior shoulder was able to be rotated anteriorly, resolving the dystocia. The body easily delivered. The cord was reduced, and the nose and mouth were bulb suctioned. After a delay, the cord was clamped and cut. The was handed off the field. Cord blood was collected. The placenta delivered spontaneously and was grossly normal in appearance. The usual 3 vessel cord was noted. A first degree midline perineal laceration was sustained. This was reapproximated using 3 0 Vicryl in running fashion. Excellent hemostasis resulted as did excellent reapproximation of the normal anatomy. Needle and instrument counts were correct. The patient was taken to recovery room in stable condition. The infant went to the nursery in stable condition. I was present and scrubbed for the entire delivery. [place] Baby Date of : 02/05/24 Time of : 19:52 Weeks of gestation at delivery: 40 gender: Female Weight (pounds): 6 Weight (ounces): 14 presentation: vertex position: Right Occiput Posterior Placenta delivery description: Spontaneous and Normal Configuration Cord Vessel Description: 3 Vessels, Nuchal Cord and Delayed Cord Clamping score one minute: 7 score five minutes: 9
--- NOTE | 2024-02-05 20:21 | PM.OBDSVD ---
DS: Admitting Diagnosis Discharge Date 02/07/24 Admitting Diagnosis IUP at 40 weeks DS: Discharge Diagnosis Discharge Diagnosis (1) (normal spontaneous vaginal delivery): Code(s): O80 - Encounter for full-term uncomplicated delivery Status: Acute OB - DS: Summary OB Procedures : None OB Procedures Intrapartum: Spontaneous Vag Delivery OB Procedures: : None Peripartum Data Laceration Description: Perineal - 1st Degree Time Spent with Patient Time attestation: Total time spent providing and/or coordinating discharge services: DS: Data Data Completed and Pending Labs on day of discharge: Labs from last 24 hours 02/04/24 17:04 RPR Non-reactive Discharge Plan Discharge Attending physician on discharge: Jcarlos Franco Discharging Clinician: Jcarlos Franco Patient Disposition: Home, Self-Care Activity: pelvic rest Diet: regular Discharge Instructions: Education: Mom and Baby Guide Given to: Mother Follow-Up: Call your delivering provider's office for an appointment to be seen in: 6 Weeks Mom and baby should come to the [facility] for the follow-up appointment. Appointment Date/Time: February 09, 2024 at 10:00 am What to expect at your follow-up visit: Physical Assessment Call [phone] if you are unable to keep your appointment time. BREAST CARE: * Wear a snug supportive bra. * For engorgement discomfort: Breast Feeding: * Apply warm moist washcloths * Express milk as needed to relieve engorgement * Wear loose clothing Bottle Feeding: * May apply ice packs * For sore nipples: * Identify correct latch-on * Apply warm moist washcloths before and after nursing * Air dry nipples after nursing * May apply Lansinoh cream to nipples EPISIOTOMY/PERINEAL CARE: * Until bleeding stops, use your juani bottle after urinating * Change your pad frequently throughout the day * You may take sitz baths several times a day (fill your bathtub with warm water and soak for 20 minutes.) Do NOT bathe in the water * No tub baths until seen by your physician - You may shower ACTIVITY: * Rest as much as possible. * Do not exercise or lift anything heavier than your baby (such as laundry or other children.) * Avoid stairs or driving as much as possible. * Do not put anything into the vagina. No douching, tampons, or sexual activity until seen by physician. NOTIFY PHYSICIAN IF YOU HAVE ANY QUESTIONS OR IF ANY OF THE FOLLOWING SYMPTOMS OCCUR: * If your episiotomy or incision becomes red, swollen, or more painful than what you have experienced in the hospital. * If your vaginal bleeding becomes foul smelling. * If your vaginal bleeding becomes more heavy than a period or if your bleeding changes from pink to bright red. However, you may pass an occasional walnut-sized clot once or twice for the first week . * If you experience a sharp, shooting pain in you calves. * If you discover a hard, reddened area on your breast or if you experience flu-like symptoms. DIET: * Eat regular, well-balanced meals. * Drink plenty of fluids daily. If , drink to thirst. Call or return if temperature above 100.4? F, increased abdominal pain, increased vaginal bleeding or any new problems. Stand Alone Forms: General Discharge Information Follow-up/Referrals: Jorge Hernandez MD [Physician] - 6 Weeks Discharge Medications: New ibuprofen 600 mg tablet 600 mg PO Q6H PRN (Reason: cramps) Qty: 30 0RF [id number] [Fioricet] 50-300-40 mg capsule 1 - 2 cap PO Q4H PRN (Reason: headache) Qty: 30 0RF Continued vit-iron fum-folic ac [ Vitamin with Minerals] 28 mg iron- 800 mcg Tablet 1 tablet PO DAILY labetalol 100 mg Tablet 100 mg PO Q12H Date of admission: 02/04/24 16:41 Primary Care
[2024-02-05] MEDS: COSYNTROPIN 0.25 MG/ML VIAL 1 MG IV PUSH (20:24)
[2024-02-05] MEDS: OXYTOCIN 30 UNITS/NS 500 ML 30 UNITS/500 ML BAG 125 UNITS IV CONT (20:29)
[2024-02-05] MEDS: WITCH HAZEL 40 PADS 1 PAD TOPICAL (21:35)
[2024-02-05] MEDS: BENZOCAINE 20% AER SPR (*SP) 56 GM CAN 1 SPRAY TOPICAL (21:36)
--- NOTE | 2024-02-05 22:05 | OBPPTRN ---
Patient transferred to post room #287 via wheelchair. Oriented to unit, room, information board, rooming in, admission packet and security measures. Patient verbalizes understanding.
[2024-02-06] VITALS (7 sets, daily range): BP systolic 77–121; BP diastolic 34–74; PULSE 60–84; RESP 16–20; TEMP 36.4–37.1; O2SAT 98–99
[2024-02-06] MEDS: IBUPROFEN 600 MG TABLET PO ×3 (00:58→17:46)
[2024-02-06] MEDS: ACETAMINOPHEN 325 MG TABLET 650 MG (04:00)
--- NOTE | 2024-02-06 04:22 | PC.NURSE ---
0400- Patient called out to nurses station stating that she had a migraine since coming up and was feeling light headed while sitting up to feed baby. Patient stated that they had difficulty placing her epidural and planned to keep the catheter in but it was removed. She stated that she feels better when laying down and the pain radiates to her neck when upright. 0418 - This RN relayed above information to accounting professional anesthesiologist Rosalind Zhao. Rosalind Zhao ordered [place] 5 to be given for pain once until they are able to come and do an assessment in the morning.
[2024-02-06] MEDS: HYDROcodone/acetaminophen (*CRX) 5-325 MG TABLET 1 TAB PO (04:36)
[2024-02-06 05:46] LABS: Hemoglobin 12.2 g/dL (12.0-15.0)
--- NOTE | 2024-02-06 07:55 | WPDANLDPN2 ---
Anes-Prog Note L&D Date/Time: 02/06/24 07:55 Comfortable throughout: labor and delivery Neuraxial method: epidural Epidural/Spinal procedure site: clean & non-tender Neuro status: Neuro function grossly intact. Cardiovascular status: normal Respiratory status: normal Airway patency: baseline Mental status: baseline Post-Op hydration status: normal Vital Signs: Last Vital Signs Temp 36.6 C 02/06/24 04:26 Pulse 60 02/06/24 04:26 Resp 20 02/06/24 04:26 BP 107/52 L 02/06/24 04:26 Pulse Ox 98 02/06/24 04:26 O2 Del Method Room Air 02/04/24 17:27 Pain score (VAS): 5/10 I/O: Intake & Output 02/05/24 02/05/24 02/06/24 15:59 23:59 07:59 Intake Total 1000 Output Total 85 Balance 1000 -85 Post-procedural complaints: other (headache (occipital), worse with sitting and standing) Patient feedback: Patient satisfied with anesthetic care. Other findings: Pt requests epidural blood patch
--- NOTE | 2024-02-06 08:47 | PM.OBPNVD ---
OB - PN: Subj Subjective Date/time seen: 02/06/24 08:47 Narrative: Pain OK. OB - PN: Obj Data Labs 02/06/24 03:49 Labs: Laboratory Results - last 24 hr 02/04/24 02/06/24 17:04 03:49 Hgb 12.2 Hct 38.0 RPR Non-reactive OB - PN A/P Plan day: 1 Comments: A: PPD#1, doing well. P: Routine care. Exam Psych: Other: AVSS ABD soft, nontender, fundus firm EXT nontender
[2024-02-06] MEDS: LACTATED RINGERS 1,000 ML 999 ML IV CONT (09:14)
--- NOTE | 2024-02-06 09:21 | WPDANESEBPP ---
Anes - Epidural Blood Patch PN Date/Time: 02/06/24 09:21 Consent: I have discussed with the patient/family/POA, the rationale of a lumbar epidural autologous blood patch for the treatment of post-dural puncture headache (spinal headache), including associated potential risks, benefits, complications and side effects. I have also discussed more conservative treatment options such as intravenous hydration, caffeine and non-prescription analgesics. The patient/family/POA, understand(s) and wish(es) to proceed with epidural autologous blood patch as treatment for the patient's post-dural puncture headache. Time-Out: A pre-procedural Time-Out was completed immediately before starting the procedure and confirmed: Patient Identification, Site, Procedure, Patient Position and the Availability of Requisite Equipment. Clinical Indications: headache 8/10 pain. worse with sitting and walking. Pain is predominantly in occipital area. Epidural Insertion Note Patient position: sitting Skin prep: chlorhexidine Needle: 18 gauge Tuohy-Schliff, 8cm to EDS, 15 cc blood drawn in sterile fashion from left arm, injected easily into epidural space. Headache improved. VSS. Technique: loss of resistance Skin anesthesia: lidocaine 1% Observations: tolerated well Complications: none
[2024-02-07] MEDS: IBUPROFEN 600 MG TABLET PO ×2 (04:32→10:53)
[2024-02-07 08:35] VITALS: BP 114/62; PULSE 80; RESP 16; TEMP 36.7
[2024-02-07] MEDS: LIDOCAINE 5% PATCH 1 PATCH TRANSDERM (09:37)
--- NOTE | 2024-02-07 10:22 | PM.OBPNVD ---
OB - PN: Subj Subjective Date/time seen: 02/07/24 10:22 Narrative: Received blood patch yesterday. This morning she has a headache with coughing, but not with posture change. Would like to go home. OB - PN: Obj Data Labs 02/06/24 03:49 OB - PN A/P Plan day: 2 Comments: A: PPD#2, doing well. P: Fioricet for headache. Home to f/u 6 weeks. Exam Psych: Other: AVSS ABD soft, nontender, fundus firm EXT nontender
[2024-02-07] MEDS: ACETAMINOPHEN/BUTALBITAL/CAFFEINE 325-50-40 MG TABLET (FIORICET) 1 TAB PO (10:54)
[2024-02-09 10:26] VITALS: BP 140/81; PULSE 68; RESP 20; TEMP 36.7; O2SAT 99
== END 2024-02-07 12:13 | disposition home or self-care (01) | DRG 560 ==
LOC: ANHLDR 02-05 20:22 → ANHOB2 02-07 10:21 → ANHLDR 02-09 12:34 → ANHOB2 02-09 12:34
PROVIDERS: Admitting Provider Obstetrics & Gynecology; PCP Family Medicine; Visit Provider Obstetrics & Gynecology
DX: O66.0 Obstructed labor due to shoulder dystocia (principal); Z37.0 Single live birth; Z3A.40 40 weeks gestation of pregnancy; O70.0 First degree perineal laceration during delivery
CPT/HCPCS: 36415; 85014; 85018; 85025; 86592; 86703; 86850; 86900; 86901; A9270; G0432; J0834; J2405; J2590; J2795; J7120

== ENCOUNTER 2024-08-10 10:27 | Emergency (ER) | payer OTHER, SELFPAY ==
[2024-08-10 10:42] VITALS: BP 123/63; PULSE 66; RESP 16; TEMP 36.4; O2SAT 98
[2024-08-10] MEDS: METOCLOPRAMIDE HCL INJ 10 MG/2 ML VIAL IM (11:46)
--- NOTE | 2024-08-10 15:26 | ED.HA ---
HPI - Headache General Chief Complaint: Headache Stated Complaint: migraine Time Seen by Provider: 08/10/24 10:59 History of Present Illness HPI Narrative: patient with history of migraines presenting here with migraine, Kateryna started this morning, tried taking multiple excisions without improvement, this feels like her usual migraines though it is pretty intense. No recent trauma. Feels lightheaded due to the headache, light makes it worse. Related Data Home Medications ?Medication ?Instructions ?Recorded ?Confirmed ?Last Taken ?Type labetalol 100 mg tablet 100 mg PO Q12H 11/05/23 02/04/24 11/05/23 09:00 History vitamin-ferrous fumarate 1 tablet PO DAILY 11/05/23 02/04/24 02/03/24 History 28 mg iron-folic acid 800 mcg tablet ( Vitamins with Minerals) Allergies Allergy/AdvReac Type Severity Reaction Status Date / Time clonazepam Allergy Intermediate Other Verified 08/10/24 11:44 latex Allergy Other Verified 08/10/24 11:44 lemon Allergy Hives Verified 08/10/24 11:44 buspirone AdvReac Unknown Nausea and Verified 08/10/24 11:44 Vomiting escitalopram (From Lexapro) AdvReac Migraine Verified 08/10/24 11:46 red dye AdvReac Vomiting Verified 08/10/24 11:44 Review of Systems Review of Systems: All systems reviewed & are unremarkable except as noted in HPI and below PMFSH Past Medical History Medical History ADHD Anxiety and depression Asthma History of borderline personality disorder PIH ( induced hypertension) Surgical History Surgical History History of adenoidectomy History of tonsillectomy S/p bilateral myringotomy with tube placement As child Family History Family History Mother Diabetes mellitus Father Bipolar 1 disorder Other Cancer Social History Social History Smoking status: Current every day smoker Tobacco type: e-cigarettes/vaping Second hand tobacco smoke exposure: Yes Additional smoking assessment comments: No vaping for 2 months Substance use: never Do You Feel Safe in your Home?: Yes Lack of Transportation: No Lack of Food: Never True Current Housing: I Have Housing Concerned About Future Housing: No Difficulty Paying Gas/Electric Bills: No Difficulty Paying for Meds: No Currently Unemployed: No Education: High School Diploma/GED Difficulty w/ Childcare or Family Care: No Gender identity (if verbalized by the patient): Female Sexual Orientation (if Verbalized by the Patient): Straight or Heterosexual Spiritual care concerns: No Exam Narrative: EXAMINATION OF ORGAN SYSTEMS/BODY AREAS: Constitutional: Vital signs per nursing GENERAL: Appears uncomfortable HEAD: Normal with no signs of head trauma. EYES: EOMI, conjunctiva normal, PERRL ENT: Hearing grossly intact LUNGS: Nonlabored breathing. HEART: [Regular rate and rhythm] ABD: [Soft], [nontender to palpation] EXT: Normal range of motion SKIN: [No rashes or lesions.] NEURO: [Alert and oriented x 3. No gross focal sensory or strength deficits.] PSYCH: Normal affect Course Vital Signs Vital signs: Vital Signs Temperature 97.6 F 08/10/24 10:42 Pulse Rate 66 08/10/24 10:42 Respiratory Rate 16 08/10/24 10:42 Blood Pressure 123/63 08/10/24 10:42 Pulse Oximetry 98 08/10/24 10:42 Oxygen Delivery Room Air 08/10/24 10:42 Temperature 97.6 F 08/10/24 10:42 Pulse Rate 66 08/10/24 10:42 Respiratory Rate 16 08/10/24 10:42 Blood Pressure 123/63 08/10/24 10:42 Pulse Oximetry 98 08/10/24 10:42 Oxygen Delivery Room Air 08/10/24 10:42 MDM - Headache MDM Narrative Medical decision making narrative: 24F presents to the emergency department for headache. Patient is hemodynamically stable. No focal neurological or cranial nerve deficits on exam. No meningeal signs. The headache was gradual in onset, it is not exertional and does not appear consistent with subarachnoid hemorrhage or intracranial bleeding. No trauma. Patient is given Reglan. On reevaluation, the patient feels significantly better with the headache resolved. No neurological deficits. Patient is comfortable going home for outpatient follow-up with primary care physician and/or neurology and provided with strict return precautions, especially for worsening headaches, neck pain/stiffness, fever or weakness, numbness/tingling or persistent vomiting Discharge Plan Discharge Clinical Impression: Migraine Patient Disposition: Home, Self-Care Condition: Stable Instructions: Migraine Headache (ED) Additional Instructions: Please follow up with your doctor; you can always return for any further issues. Patient Language: Bangladeshi Prescriptions: No Action vit-iron fum-folic ac [ Vitamin with Minerals] 28 mg iron- 800 mcg Tablet 1 tablet PO DAILY labetalol 100 mg Tablet 100 mg PO Q12H ibuprofen 600 mg tablet 600 mg PO Q6H PRN (Reason: cramps) Qty: 30 0RF sceoqyhknq-ohumjegmntndu-zaij [Fioricet] 50-300-40 mg capsule 1 - 2 cap PO Q4H PRN (Reason: headache) Qty: 30 0RF Follow-up/Referrals: UNKNOWN,DOCTOR [Non-Staff] -
== END 2024-08-10 12:55 | disposition home or self-care (01) ==
LOC: ANHED 12:45
PROVIDERS: Emergency Provider Emergency Medicine
DX: G43.909 Migraine, unspecified, not intractable, without status migrainosus (principal); F41.8 Other specified anxiety disorders; J45.909 Unspecified asthma, uncomplicated; F17.210 Nicotine dependence, cigarettes, uncomplicated
CPT/HCPCS: 96372; 99283; J2765

== ENCOUNTER 2024-09-26 14:51 | Emergency (ER) | payer OTHER, SELFPAY ==
--- NOTE | ~2024-09-26 | XR_ITS ---
EXAM: XR foot RT min 3V DATE: 09/26/2024 15:23 HISTORY: MEDIAL FOOT PAIN X 1 DAY. NO TRAUMA OR INJURY . COMPARISON: 11/10/2015. FINDINGS: Normal mineralization. No fracture or dislocation. No lytic or blastic lesion. Joint space s are maintained. Achilles enthesopathy No erosion or periosteal change. Soft tissues within normal l imits. IMPRESSION: No acute osseous finding in the right foot. Reviewed, dictated and finalized at location K. K REPAIRER
[2024-09-26 14:53] VITALS: BP 140/66; PULSE 79; RESP 16; TEMP 36.5; O2SAT 98
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
--- OUTSIDE RECORDS SUMMARY | 2024-09-26 14:53 | XMS_ITS | Referral Summary ---
Author Organization [facility] Address [address] [place] [address] Care Team Providers Care Development Spec Name Role Phone Karina Dey MD Primary Care Provider [phone] Allergies Active Allergy Reactions Criticality Noted Date [...] today. No ptosis. Most likely physiological. Noted. 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 GOODS WASHER Temperature 36.7 ??C (98.1 ??F) 08/02/2021 11:[address] Respiratory Rate 16 08/02/2021 11:28 AM KNIT GOODS WASHER Oxygen Saturation 97% 08/02/2021 11:28 AM KNIT GOODS WASHER Inhaled Oxygen Concentration - - Weight 105.2 kg (232 lb) 08/02/2021 11:28 AM KNIT GOODS WASHER Height 160 cm (5' 3 ) 08/02/2021 11:28 AM KNIT GOODS WASHER Body Mass Index 41.1 08/02/2021 11:28 AM KNIT GOODS WASHER Plan of Treatment Not on file [place] [address] [address] [place] [address] Care Teams Development Spec Relationship Specialty Start Date End Date Karina Dey MD [facility] [place] [address] PCP - General Family Medicine 03/14/22
--- OUTSIDE RECORDS SUMMARY | 2024-09-26 14:53 | XMS_ITS | Patient Health Record ---
Author Organization [facility] Address [address] [place] [address] Care Team Providers Care Lens Coater Name Role Phone Kristen Guerrero Primary Care Provider Francheska De Anda Unavailable [phone] Zuleyma Faustin Unavailable [phone] Allergies Allergen (clinical drug ingredient) Drug/Non Drug Allergy documented on EMR Reaction Allergy Type Onset Date Status Lemon Juice LEMON JUICE (uncoded) HIVES Allergy Active BuSpar SICK Drug Allergy Active escitalopram Lexapro nausea and vomiting Drug Allergy Active Reason For Referral No Information Medications Medication SIG (Take, Route, Frequency, Duration) Notes Start Date End Date Status Zofran Active EnilloRing 0.12-0.015 MG/24HR Vaginal for 84 Days Active Cyclobenzaprine HCl 10 MG Oral for 15 Days Active Diclofenac Sodium 75 MG TAKE 1 TABLET BY MOUTH TWICE DAILY WITH FOOD NEEDED FOR PAIN Oral for 15 Days Active Vitamin D (Ergocalciferol) 1.25 MG (84347 UT) TAKE 1 CAPSULE BY MOUTH ONCE A WEEK for 28 Active Sertraline HCl 25 MG 1 tablet Orally Onc e a day for 30 days 08/05/2024 Active Social History Tobacco Use: Social History Observation Description Date Details (start date - stop date) Current Smoker NA - NA Dont use, Tobacco Use/Smoking Question Answer Notes Are you a current smoker How often do you smoke cigarettes? every day How many cigarettes a day do you smoke? 6-10 Tobacco Control (Standard) Question Answer Notes Tobacco use: Current every day smoker Additional Findings: Tobacco user e-cigarette Section Notes: PRESCRIPTION # FILLED WRITTEN DRUG LABEL QTY DAYS STRENGTH MEDD PRESCRIBER PHARMACY REFILL NO. REFILLS STATE 10/21/2022 10/21/2022 ALPRAZolam 90.0 30 0.5 MG NA El-Karina sarmiento Md [id number] [id number], [place], [place] NA 0 [place] 1 [id number] 09/17/2022 09/16/2022 ALPRAZolam 90.0 30 0.5 MG NA El-Karina sarmiento Md [id number] [id number] 0 [place] 1 [id number] 08/19/2022 08/19/2022 ALPRAZolam 90.0 30 0.5 MG NA El-Karina sarmiento Md [id number] [facility] [id number], [place], [place] NA 0 [place] 1 [id number] 08/07/2022 08/07/2022 traMADol 30.0 7 50 MG 21.43 Karina Gudino Md [id number] [id number] 1 [id number] 07/21/2022 07/21/2022 ALPRAZolam 90.0 30 0.5 MG NA Fortino-Karina sarmiento Md [id number] PRESCRIPTION # FILLED WRITTEN DRUG LABEL QTY DAYS STRENGTH MEDD PRESCRIBER PHARMACY REFILL NO. REFILLS STATE 12/19/2022 12/19/2022 ALPRAZolam 90.0 30 0.5 MG NA El-Karina sarmiento Md [id number] [facility] [id number] 1 [id number] 10/21/2022 10/21/2022 ALPRAZolam 90.0 30 0.5 MG NA El-Karina sarmiento Md [id number] [facility] [id number], [place], [place] NA 0 [place] 1 [id number] 09/17/2022 09/16/2022 ALPRAZolam 90.0 30 0.5 MG NA El-Karina sarmiento Md [id number] PRESCRIPTION # FILLED WRITTEN DRUG LABEL QTY DAYS STRENGTH MEDD PRESCRIBER PHARMACY REFILL NO. REFILLS STATE 10/21/2022 10/21/2022 ALPRAZolam 90.0 30 0.5 MG NA Karina Gudino Md [id number] [facility] [id number], [place], [place] NA 0 [place] 1 [id number] 09/17/2022 09/16/2022 ALPRAZolam 90.0 30 0.5 MG Karina Colon Md PRESCRIPTION # FILLED WRITTEN DRUG LABEL QTY DAYS STRENGTH MME PRESCRIBER PHARMACY REFILL NO. REFILLS STATE 04/16/2023 04/16/2023 ALPRAZolam 90.0 30 0.5 MG NA Karina Gudino Md [id number] [facility] [id number], [place], [place] NA 0 [place] 1 [id number] 03/20/2023 03/20/2023 ALPRAZolam 90.0 30 0.5 MG NA Karina Gudino Md [id number] [facility] [id number], [place], [place] NA 0 [place] 1 [id number] 02/18/2023 02/17/2023 ALPRAZolam 90.0 30 0.5 MG NA Karina Gudino Md [id number] [facility] # [id number], [place], [place] NA [place] 1 [id number] 01/18/2023 01/14/2023 ALPRAZolam 90.0 30 0.5 MG NA Karina Gudino Md [id number] [facility] PRESCRIPTION # FILLED WRITTEN DRUG LABEL QTY DAYS STRENGTH MME PRESCRIBER PHARMACY REFILL NO. REFILLS STATE 01/18/2023 01/14/2023 ALPRAZolam 90.0 30 0.5 MG NA Karina Gudino Md [id number] [facility] [id number], [place], [place] NA 0 [place] 1 [id number] 01/16/2023 01/16/2023 diazePAM 12.0 4 2 MG NA Mark Suarez - [id number] [facility] # [id number], [place], [place] NA 0 [place] 1 [id number] 12/19/2022 12/19/2022 ALPRAZolam 90.0 30 0.5 MG NA El-Karina sarmiento Md [id number] [facility] PRESCRIPTION # FILLED WRITTEN DRUG LABEL QTY DAYS STRENGTH MME PRESCRIBER PHARMACY REFILL NO. REFILLS STATE 05/23/2022 05/22/2022 Phentermine Hcl 30.0 30 37.5 MG Karina Colon Md [id number] [facility] # [id number], [place], [place] NA 0 [place] 1 [id number] 05/22/2022 05/22/2022 ALPRAZolam 90.0 30 0.5 MG NA El-Karina sarmiento Md [id number] [facility] # 04708, [place], [place] NA 0 [place] 1 [id number] 06/20/2022 06/20/2022 ALPRAZolam 90.0 30 0.5 MG NA El-Karina sarmiento Md [id number] PRESCRIPTION # FILLED WRITTEN DRUG LABEL QTY DAYS STRENGTH MME PRESCRIBER PHARMACY REFILL NO. REFILLS STATE 04/16/2023 04/16/2023 ALPRAZolam 90.0 30 0.5 MG NA El-Karina sarmiento Md [id number] [facility] # [id number], [place], [place] NA 0 [place] 1 [id number] 03/20/2023 03/20/2023 ALPRAZolam 90.0 30 0.5 MG NA Fortino-Karina sarmiento Md [id number] [facility] [place] 1 [id number] 02/18/2023 02/17/2023 ALPRAZolam 90.0 30 0.5 MG NA El-Karina sarmiento Md [id number] [facility] # [id number], [place], [place] NA 0 [place] 1 [id number] 01/18/2023 01/14/2023 ALPRAZolam 90.0 30 0.5 MG NA El-Karina sarmiento Md [id number] [facility] Problems Problem Type SNOMED Code ICD Code Onset Dates Problem Status W/U Status Risk Notes Problem Tobacco user (064555055) Nicotine dependence, unspecified, uncomplicated (F17.200) Active confirmed Problem Borderline personality disorder (F60.3) Active confirmed Problem Mood disorder (32004885) Mood disorder (F39) Active confirmed Problem Nicotine dependence (34017386) Nicotine dependence (F17.200) Active confirmed Problem depression (79801857) Post depression (F53.0) Active confirmed Encounters Encounter Location Date Provider Diagnosis [address] [address] 09/30/2023 Francheska Sanftleben Borderline personality disorder F60.[address] [address] 10/15/2023 Francheska Sanftleben Borderline personality disorder F60.[address] [address] 10/22/2023 Francheska Sanftleben Borderline personality disorder F60.[address] [address] 10/30/2023 Francheska Sanftleben Borderline personality disorder F60.[address] [address] 11/28/2023 Francheska Sanftleben Borderline personality disorder F60.[address] [address] 12/11/2023 Francheska Sanftleben Borderline personality disorder F60.[address] [address] 12/26/2023 Francheska Sanftleben Borderline personality disorder F60.[address] [address] 12/31/2023 Francheska Sanftleben Borderline personality disorder F60.[address] [address] 01/14/2024 Francheska Sanftleben Borderline personality disorder F60.[address] [address] 02/11/2024 Francheska Sanftleben Borderline personality disorder F60.[address] [address] 03/05/2024 Francheska Sanftleben Borderline personality disorder F60.[address] [address] 03/18/2024 Francheska Sanftleben Borderline personality disorder F60.[address] [address] 03/24/2024 Francheska Sanftleben Borderline personality disorder F60.[address] [place] [address] 04/12/2024 Francheska Sanftleben Borderline personality disorder F60.[address] [address] 04/30/2024 Francheska Sanftleben Borderline personality disorder F60.[address] [address] 05/04/2024 Francheska Sanftleben Borderline personality disorder F60.[address] [address] 05/20/2024 Francheska Sanftleben Borderline personality disorder F60.[address] [address] 06/03/2024 Francheska Sanftleben Borderline personality disorder F60.[address] [address] 07/01/2024 Zuleyma Faustin Borderline personality disorder F60.[address] [address] 07/13/2024 Zuleyma Faustin Borderline personality disorder F60.3 and Post depression F53.0 [facility] [address] [place] [address] 07/28/2024 Zuleyma Faustin Borderline personality disorder F60.[address] [place] [address] 08/05/2024 Kristen Guerrero Borderline personality disorder F60.3 and Post depression F53.0 [facility] [address] [place] [address] 08/09/2024 Zuleyma Faustin Borderline personality disorder F60.3 [facility] [address] [place] [address] 09/03/2024 Zuleyma Faustin Borderline personality disorder F60.3 [facility] [address] [place] [address] 09/16/2024 Zuleyma Faustin Borderline personality disorder F60.[address] [place] [address] 03/02/2024 Francheska Sanftleben [address] [place] [address] 04/09/2024 Francheska Sanftleben [address] [place] [address] 04/12/2024 Francheska Sanftlen [address] [place] [address] 04/27/2024 Francheska Sanftleben Assessments Encounter Date Diagnosis (ICD Code) Assessment Notes Treatment Notes Treatment Clinical Notes Section Notes 07/01/2024 Borderline personality disorder (ICD-10 - F60.3) 06/03/2024 Borderline personality disorder (ICD-10 - F60.3) 05/20/2024 Borderline personality disorder (ICD-10 - F60.3) 05/04/2024 Borderline personality disorder (ICD-10 - F60.3) 04/30/2024 Borderline personality disorder (ICD-10 - F60.3) 04/12/2024 Borderline personality disorder (ICD-10 - F60.3) 03/24/2024 Borderline personality disorder (ICD-10 - F60.3) 03/18/2024 Borderline personality disorder (ICD-10 - F60.3) 03/05/2024 Borderline personality disorder (ICD-10 - F60.3) 02/11/2024 Borderline personality disorder (ICD-10 - F60.3) 12/31/2023 Borderline personality disorder (ICD-10 - F60.3) 12/26/2023 Borderline personality disorder (ICD-10 - F60.3) 12/11/2023 Borderline personality disorder (ICD-10 - F60.3) 11/28/2023 Borderline personality disorder (ICD-10 - F60.3) 10/30/2023 Borderline personality disorder (ICD-10 - F60.3) 10/22/2023 Borderline personality disorder (ICD-10 - F60.3) 09/30/2023 Borderline personality disorder (ICD-10 - F60.3) 10/15/2023 Borderline personality disorder (ICD-10 - F60.3) 01/14/2024 Borderline personality disorder (ICD-10 - F60.3) 09/16/2024 Borderline personality disorder (ICD-10 - F60.3) 09/03/2024 Borderline personality disorder (ICD-10 - F60.3) 08/09/2024 Borderline personality disorder (ICD-10 - F60.3) 08/05/2024 Borderline personality disorder (ICD-10 - F60.3) 07/28/2024 Borderline personality disorder (ICD-10 - F60.3) 07/13/2024 Borderline personality disorder (ICD-10 - F60.3) 07/13/2024 Post depression (ICD-10 - F53.0) 08/05/2024 Post depression (ICD-10 - F53.0) 04/30/2024 Other Client is engaged in short term brief intervention therapy. 05/04/2024 Other Client is engaged in short term brief intervention therapy. 05/20/2024 Other Client is engaged in short term brief intervention therapy. 06/03/2024 Other Client is engaged in short term brief intervention therapy. 08/05/2024 Other Reasons, potential benefits, potential risks, interactions and side effects of all medications were discussed. The Patient/Guardian asked appropriate questions, appeared to understand the answers, and decided to accept the treatment and continue being followed. Alternatives and expected course without treatment were reviewed. The Patient/Guardian is aware of the need to contact the office or return for an earlier appointment if any problems or concerns arise. May also contact the 24-hour crisis hotline (R), refer to the closest emergency room or call 911 if new symptoms arise of existing symptoms worsen. The Patient/Guardian is aware that this would apply to symptoms like: suicidal ideation, homicidal ideation, high risk behaviors, manic symptoms, psychotic symptoms, physical symptoms, or any other symptoms that may be dangerous to self or others. Greater than 50% of time spent on coordination and counseling where psychopharmacology as well as psychotherapeutic interventions were discussed along with review of treatments in the past. Education provided concerning need for adequate hydration. Patient/Guardian verbalized understanding of education, treatment plan and follow up. This session was completed telephonically with client/parental/guard muna consent: Unable to determine movement status, assess appearance, affect, AIMS, or vital signs. Plan Of Treatment No Information Insurance Providers Payer Name Payer Address Payer Phone Subscriber Number Group Number Insured Name Patient Relationship to Insured Coverage Start Date Coverage End Date [facility] [place] [address] [id number] Eileen López Self - patient is the insured [facility] [place] [place] [address] [id number] Eileen López Self - patient is the insured 1 [facility] [place] [address] [id number] Eileen López Self - patient is the insured 1 [employer] [facility] Telehealth Attn Claims Department [address] [id number] Eileen López Self - patient is the insured 1 [employer] [place] [employer] Telehealth [place] [address] [phone] [id number] Eileen López Self - patient is the insured 3 Medical (General) History Medical History History ICD Code borderline personality disorder Surgical History Surgery Date(Month/Year) tonsillectomy and adenoidectomy Hospitalization History Reason Date(Month/Year) childbirth michele Marinelli x2 MH
--- OUTSIDE RECORDS SUMMARY | 2024-09-26 14:53 | XMS_ITS ---
Author Organization [facility] Address [address] [place] [address] Care Team Providers Care Ink Printer Name Role Phone Kristen Guerrero Primary Care Provider Zuleyma Faustin [phone] REASON FOR VISIT Therapy Encounters Encounter Location Date Provider Diagnosis [address] [place] [address] [place] [address] 09/16/2024 Zuleyma Faustin Borderline personality disorder F60.3 Assessments Encounter Date Diagnosis (ICD Code) Assessment Notes Treatment Notes Treatment Clinical Notes Section Notes 09/16/2024 Borderline personality disorder (ICD-10 - F60.3) Plan Of Treatment No Information Progress Notes * Eileen ANTHONYDOB:2000 (24 yo F)Acc No.[id number]:09/16/2024 Patient:?Eileen ANTHONY Provider:?Zuleyma Faustin :2000???Age:24 Y???Sex:Female D ate:09/16/2024 Address:[address] [place], [place] [id number] Pcp:Kristen Guerrero Subjective: * Chief Complaints: * ???Therapy * HPI: ???Depression Screening:?PHQ-9?Little interest or pleasure in doing things?Several days,?Feeling down, depressed, or hopeless?Nearly every day,?Trouble falling or staying asleep, or sleeping too much?Nearly every day,?Feeling tired or having little energy?Nearly every day,?Poor appetite or overeating?More than half the days,?Feeling bad about yourself or that you are a failure, or have let yourself or your family down?Not at all,?Trouble concentrating on things, such as reading the newspaper or watching television?Not at all,?Moving or speaking so slowly that other people could have noticed; or the opposite, being so fidgety or restless that you have been moving around a lot more than usual?Not at all,?Thoughts that you would be better off or of hurting yourself in some way?Not at all,?Total Score?12,?Interpretation?Moderate Depression.?Intervention?Depression Screening Findings?Positive,?Follow-Up for Depression?No Referral necessary, patient involved in behavioral health treatment ..?Behavioral Health Treatment:? Voucher Examiner met with Eileen for session providing individual therapy. Voucher Examiner utilized solution focused approach: active listening, validation, motivational interviewing along with facilitating feedback and introspection skills Eileen is working on. Voucher Examiner acknowledged insights with patterns and skills, assisted in re-framing, and growth (working on changes in behaviors and responses with factors in relationships and self). * Medical History:? * Medications:? Objective: * Examination: ???General Examination: ???Eileen reflected on factors in relationships (offically ended communicaion with her biological mother, Eileen has been having conflicting thoughts about this due to her mother giving her life). Eileen and consumer loan underwriter discussed?changes (prioritizing goals and taking time to reflect on thoughts). Eileen acknowledged pieces/factors of healthy insight and changes she would like to implement as she moves forward. Assessment: * Assessment: 1.?Borderline personality di sorder - F60.3 (Primary)??? Plan: * Treatment: * Procedure Codes:?39593 PSYTX PT&/FAMILY 30 MINUTES, Modifiers: AJ * Care Plan Details* * R WATER HEATER INSTALLER Electronically co-signed by Francheska De Anda LCSW, [id number] on 09/21/2024 at 12:17 AM SOLAR WATER HEATER INSTALLER Sign off status: Completed true * Provider:?Zuleyma Faustin Date:?09/16/19 25 Generated for Carlos brown/Macy/eTransmitting on:?09/26/2024 02:53 PM SOLAR WATER HEATER INSTALLER History and Physical Notes * HPI (History of Present Illness) Category Sub-Category Detail Notes Category Not es Depression Screening PHQ-9 Little inte rest or pleasure in doing things: Several days Feeling down, depressed, or hopeless: Ne michell every day Trouble falling or staying asleep, or sl eeping too much: Nearly every day Feeling tired or having little energy: N early every day Poor appetite or overeating: More than h tyler the days Feeling bad about yourself o r that you are a failure, or have let yourself or your family down: Not at all Trouble concentrating on thi ngs, such as reading the newspaper or watching television: Not at all Moving or speaking so slowly that other people could have noticed; or the opposite, being so fidgety or restless that you have been moving around a lot more than usual: Not at all Thoughts that you would be b nate off or of hurting yourself in some way: Not at all Total Score: 12 Interpretation: Moderate Depression Intervention Depression Screening Findings: P ositive Follow-Up for Depression: No Referral necessary, patient involved in behavioral health treatment . Examination Category Sub-Category Detail Notes Category Not es General Examination Eileen olmos eflected on factors in relationships (offically ended communicaion with her biological mother, Eileen has been having conflicting thoughts about this due to her mother giving her life). Eileen and consumer loan underwriter discussed changes (prioritizing goals and taking time to reflect on thoughts). Eileen acknowledged pieces/factors of healthy insight and changes she would like to implement as she moves forward
--- OUTSIDE RECORDS SUMMARY | 2024-09-26 14:53 | XMS_ITS | Clinical Summary ---
Author Organization [facility] Address [address] [place] [address]. [place], [place] [id number] [place] [address] Care Team Providers Care Market Development Specialist Name Role Phone Karina Warren MD Primary Care Provider [phone] Allergies Active Allergy Reactions Criticality Noted Date Comments Buspirone Vomiting 01/17/2021 Lemon Oil Hives 07/05/2021 Medications famotidine 20 MG tablet Take 1 tablet (20 mg total) by mouth 2 (two) times daily. 60 tablet 07/05/20 21 Active ondansetron (ZOFRAN ODT) 4 MG disintegrating tablet Take 1 tablet (4 mg total) by mouth every 8 (eight) hours as needed for Nausea. 15 tablet 07/05/20 21 Active phenylephrine-elena a butter (PREPARATION H) 0.25-88.44 % suppository Place 1 suppository rectally 4 (four) times daily as needed for Hemorrhoids. 30 suppository 04/03/20 22 Active Social History Tobacco Use Types Packs/Day Years Used Date Smoking Tobacco: Every Day Cigarettes Smokeless Tobacco: Never Alcohol Use Standard Drinks/Week Comments Not Currently 0 (1 standard drink = 0.6 oz pur e alcohol) Comments No Sex and Gender Information Value Date Recorded Sex Assigned at Not on file Legal Sex Female 1:09 AM CDT Gender Identity Not on file Sexual Orientation Not on file Last Filed Vital Signs Vital Sign Reading Time Taken Comments Blood Pressure 121/76 04/03/2022 4:21 PM CDT Pulse 88 04/03/2022 4:21 PM CDT Temperature 36.9 ??C (98.4 ??F) 04/03/2022 2:59 PM CD T Respiratory Rate 16 04/03/2022 4:21 PM CDT Oxygen Saturation 99% 04/03/2022 4:21 PM CDT Inhaled Oxygen Concentration - - Weight 102.5 kg (226 lb) 07/05/2021 9:37 PM CDT Height 160 cm (5' 3 ) 04/03/2022 2:59 PM CDT Body Mass Index 40.03 07/05/2021 9:37 PM CDT Plan of Treatment Health Maintenance Due Date Last Done Comments Cervical Cancer Screening Pap Smear (Age 21 to 29) Every 3 Years 1998 Cervical Cancer Screening 1998 Annual Physical 2001 Pneumococcal Vaccine: Pediatrics (0 to 5 Years) and At-Risk Patients (6 to 64 Years) (1 of 2 - PCV) 2004 DTaP, Tdap and Td Vaccines (6 - Tdap) 2009 07/20/2002, 06/08/2002, 03/13/1999, Additional history exists Hepatitis C 2016 Hepatitis B Vaccines (1 of 3 - 19+ 3-dose series) 2017 COVID-19 Vaccine (2023- season) 2024 Influenza Adult (#1) 2024 Meningococcal Vaccine Completed 04/18/2015 HPV Vaccines Completed 06/06/2017, 04/02, 02/14/2009 RSV Immunizations Under 20 Months Aged Out No longer eligible based on patient's age to complete this topic [place] [address] [place] [address] Care Teams Market Development Specialist Relationship Specialty Start Date End Date Karina Warren MD [address] [place] [address] PCP - General FAMILY PRACTICE 04/03/22
--- OUTSIDE RECORDS SUMMARY | 2024-09-26 14:53 | XMS_ITS | Continuity of Care Document ---
Author Organization [facility] Address [address] [place] [address] [address] [place] [address] Phone Care Team Providers Care Digital Sales Director Name Role Phone Lujan OD, Titus Unavailable Unavailable Procedures Procedure Date Eye Exam, New Patient Advance Directives Directive Yes / No Effective Date File Name No Information Encounters Encounter Description Practice Location Reason(s) For Visit Diagnoses Date Provider Providers Copied on Encounter [facility], [address] [place], [place], [id number], [place] tel:[phone] [facility] [place] No Information [phone] Lujan OD Titus. [address] [facility] [place] , [address], [place], [address], [place]. tel:[phone] Family History Family Member Type Diagnosis Age At Onset No Information Payers Payer name Insurance type Covered alliance party ID Authoriza tion(s) Medicaid [facility] [id number] Social History Type Description Quantity Date Captured Comments Sex Female Smoking Status No Information Chief Complaint And Reason For Visit No Information Reason For Referral Reason For Referral No Information History Of Present Illness Encounter Date Complaint History Of Prese nt Illness No Information Functional Status Date Functional Assessmen t No Information Instructions Date Instruction Additional Infor mation No Information Assessments Type Assessment Date No Information Patient Care Teams Name Effective Dates (start - stop) Status Members No Information
--- OUTSIDE RECORDS SUMMARY | 2024-09-26 14:53 | XMS_ITS ---
Author Organization [facility] Address [address] [place] [address] Care Team Providers Care Ready To Wear Department Manager Name Role Phone Kristen Guerrero Primary Care Provider Zuleyma Faustin Unavailable [phone] REASON FOR VISIT Therapy Encounters Encounter Location Date Provider Diagnosis [place] [address] [place] [address] 08/09/2024 Zuleyma Faustin Borderline personality disorder F60.3 Assessments Encounter Date Diagnosis (ICD Code) Assessment Notes Treatment Notes Treatment Clinical Notes Section Notes 08/09/2024 Borderline personality disorder (ICD-10 - F60.3) Plan Of Treatment No Information Progress Notes * Eileen ANTHONYDOB:2000 (24 yo F)Acc No.[id number]:08/09/2024 Patient:?Eileen ANTHONY Provider:?Zuleyma Faustin :2000???Age:24 Y???Sex:Female D ate:08/09/2024 Address:[address] [place], [place] [phone] Pcp:Shasha Kilpatrick Subjective: * Chief Complaints: * ???Therapy * [...] in behavioral health treatment ..?Behavioral Health Treatment:? Service Delivery Analyst met with Eileen for session providing individual therapy. Service Delivery Analyst utilized solution focused approach: active listening, validation, motivational interviewing along with facilitating feedback and introspection skills Eileen is working on. Service Delivery Analyst acknowledged insights with patterns and skills, assisted in re-framing, and growth (working on changes in behaviors and responses with factors in relationships and self). * Medical History:? * Medications:? Objective: * Examination: ???General Examination: ???Eileen reflected on factors in relationships (continued working on not making every gesture of kindness feel like a transaction, not feeling as down when she leaves her daughter, and choosing to not have a relationship with her mother). Eileen reports still feeling a bit better when she leaves her home and had someone help her out without giving them something in return)?Eileen and curriculum writer discussed?changes (prioritizing goals and taking time to reflect on thoughts and continue to not always having to do something in return, even with her partner, after an act of kindness). Eileen acknowledged pieces/factors of healthy insight and changes she would like to implement as she moves forward. Assessment: * Assessment: 1.?Borderline personality di sorder - F60.3 (Primary)??? Plan: * Treatment: * Procedure Codes:?60373 PSYTX PT&/FAMILY 30 MINUTES, Modifiers: AJ * Care Plan Details* * MOWER MECHANIC Electronically co-signed by Francheska De Anda [facility], [id number] on 08/17/2024 at 02:55 PM LAWN MOWER MECHANIC Sign off status: Completed true * Provider:?Zuleyma Faustin Date:?08/09/20 24 Generated for Carlos brown/Macy/eTransmtunde on:?09/26/2024 02:53 PM LAWN MOWER MECHANIC History and Physical Notes * HPI (History [...] Eileen olmos eflected on factors in relationships (continued working on not making every gesture of kindness feel like a transaction, not feeling as down when she leaves her daughter, and choosing to not have a relationship with her mother). Eileen reports still feeling a bit better when she leaves her home and had someone help her out without giving them something in return) Eileen and curriculum writer discussed changes (prioritizing goals and taking time to reflect on thoughts and continue to not always having to do something in return, even with her partner, after an act of kindness). Eileen acknowledged pieces/factors of healthy insight and changes she would like to implement as she moves forward
--- OUTSIDE RECORDS SUMMARY | 2024-09-26 14:54 | XMS_ITS | Data Portability ---
Author Organization [facility] Address [address] [place] [address] Care Team Providers Care Neurodiagnostic Technician Name Role Phone YOSEPH CHANDLER Manager [employer] Assessment No assessment recorded. Plan of Treatment Reminders Order Date Submit Date Provider Last Modified By Organization Details Last Modified Time Details Appointments None recorded. Lab dhea-sulfat e, serum 2017 018 [facility] Jorge, [address], [place], [address], 8 06:06:21 prolactin, serum 2017 018 [facility], [address], [place], [address], 8 06:06:21 TSH + free T4, serum 2017 018 [facility], [address], [place], [address], 8 06:06:20 testosteron e, free + total, serum 2017 018 [facility] Jorge, [address], [place], [address], 8 06:06:20 HSV (1+2) DNA, qual, PCR, unspecified specimen 2017 018 [facility], [address], [address], [place], [address], 8 06:06:35 urinalysis, dipstick 2017 018 [email or web address] In-Office Order, Internal Use Only DO Not Attach Compendium DO Not Attach Compendium, Do Not Delete/merge, [id number] 8 11:56:55 test, urine 2017 018 [facility] In-Office Order, Internal Use Only DO Not Attach Compendium DO Not Attach Compendium, Do Not Delete/merge, [id number] 8 05:00:55 bacterial vaginosis + vaginitis panel, vaginal 2017 018 [facility], [address], [address], [place], [address], 8 06:06:35 RPR (rapid plasma reagin), serum 2017 018 [facility], [address], [address], [place], [address], 8 06:07:23 hsv-2 (herpes simplex virus type 2) igg Ab, serum 2017 018 [facility] [address] [address], [place], [address], 8 06:07:24 hepatitis panel (A+B+C), acute, serum 2017 018 [facility], [address], [address], [place], [address], 8 06:07:22 hepatitis B surface Ab, qualitative , serum 2017 018 [facility], [address], [address], [place], [address], 8 06:07:23 HIV 1+2 AB + HIV 1 p24 Ag, qualitative immunoassay , serum [address] [facility], [address] Nyla Smith, [address], [address], 8 06:06:22 test, urine 2017 018 [email or web address] In-Office Order, Internal Use Only DO Not Attach Compendium DO Not Attach Compendium, Do Not Delete/merge, [id number] 8 12:23:52 urinalysis, dipstick 2017 018 [email or web address] In-Office Order, Internal Use Only DO Not Attach Compendium DO Not Attach Compendium, Do Not Delete/merge, [id number] 8 12:23:52 Referral None recorded. Procedures None recorded. Surgeries None recorded. Imaging US, pelvis, transabdomi nal + transvagina l [address] ([employer]), [address] [place], [address], 8 14:48:44 Medication Orders metformin 500 mg tablet 2017 018 [id number], [address] [place], [place], [id number], 8 11:17:23 Flagyl 500 mg tablet 2017 018 [id number], [address] [place], [place], [id number], 8 11:17:31 Patient TargetsNo targets recorded. Patient Instructions Encounter Date Encounter Id Patient Instructions Last Modified By Organization Details Last Modified Time 12/09/[id number] When You Want to Lose Weight: Care Instructions [email or web address] Not available 12/09/2017 13:59:53 polycystic ovary syndrome: care instructions Not available 12/09/2017 10:45:37 bacterial vaginosis: care instructions [email or web address] Not available 12/09/2017 10:59:47 05/22/2018 [id number] When You Want to Lose Weight: Care Instructions [email or web address] Not available 05/22/2018 12:26:14 polycystic ovary syndrome: care instructions [email or web address] Not available 05/22/2018 12:23:52 Reason for Referral None Reported. Results Created Date Observation Date Name Description Value Unit Range Abnormal Flag Note LastModifiedBy Organization Detail LastModifiedTime 05/22/20 18 05/22/2018 urina lysis , dipst ick Leukocytes Negati ve Not Available In-Office Order Internal Use Only DO Not Attach Compendium DO Not Attach Compendium, Do Not Delete/merge, 05/22/2018 11:25:24 05/22/20 18 05/22/2018 urina lysis , dipst ick Nitrite negati ve Not Available In-Office Order Internal Use Only DO Not Attach Compendium DO Not Attach Compendium, Do Not Delete/merge, 05/22/2018 11:25:24 05/22/2005/22/2018 urina lysis , dipst ick Urobilinogen .2 Not Available In-Of fice Order Internal Use Only DO Not Attach Compendium DO Not Attach Compendium, Do Not Delete/merge, 05/22/2018 11:25:24 05/22/20 18 05/22/2018 urina lysis , dipst ick Protein Trace Not Available In-Office Order Internal Use Only DO Not Attach Compendium DO Not Attach Compendium, Do Not Delete/merge, 05/22/2018 11:25:24 05/22/20 18 05/22/2018 urina lysis , dipst ick pH 5.5 Not Available In-Office Order Internal Use Only DO Not Attach Compendium DO Not Attach Compendium, Do Not Delete/merge, 05/22/2018 11:25:24 05/22/20 18 05/22/2018 urina lysis , dipst ick Blood Negati ve Not Available In-Office Order Internal Use Only DO Not Attach Compendium DO Not Attach Compendium, Do Not Delete/merge, 05/22/2018 11:25:24 05/22/20 18 05/22/2018 urina lysis , dipst ick Specific Hitchcock 1.030 Not Available In-Off ice Order Internal Use Only DO Not Attach Compendium DO Not Attach Compendium, Do Not Delete/merge, 05/22/2018 11:25:24 05/22/20 18 05/22/2018 urina lysis , dipst ick Ketone Negati ve Not Available In-Office Order Internal Use Only DO Not Attach Compendium DO Not Attach Compendium, Do Not Delete/merge, 05/22/2018 11:25:24 05/22/20 18 05/22/2018 urina lysis , dipst ick Bilirubin Negati ve Not Available In-Office Order Internal Use Only DO Not Attach Compendium DO Not Attach Compendium, Do Not Delete/merge, 05/22/2018 11:25:24 05/22/20 18 05/22/2018 urina lysis , dipst ick Glucose Negati ve Not Available In-Office Order Internal Use Only DO Not Attach Compendium DO Not Attach Compendium, Do Not Delete/merge, 05/22/2018 11:25:24 05/22/20 18 05/22/2018 pregn claudia test, urine HCG negati ve Not Available In-Office Order Internal Use Only DO Not Attach Compendium DO Not Attach Compendium, Do Not Delete/merge, 05/22/2018 11:25:04 12/10/19 18 12/09/2017 pregn claudia test, urine HCG negati ve Not Available In-Office Order Internal Use Only DO Not Attach Compendium DO Not Attach Compendium, Do Not Delete/merge, 12/09/2017 10:14:52 12/10/19 18 12/09/2017 urina lysis , dipst ick Leukocytes Negati ve Not Available In-Office Order Internal Use Only DO Not Attach Compendium DO Not Attach Compendium, Do Not Delete/merge, 12/09/2017 10:14:50 12/10/19 18 12/09/2017 urina lysis , dipst ick Nitrite negati ve Not Available In-Office Order Internal Use Only DO Not Attach Compendium DO Not Attach Compendium, Do Not Delete/merge, 12/09/2017 10:14:50 12/10/19 18 12/09/2017 urina lysis , dipst ick Urobilinogen .2 Not Available In-Of fice Order Internal Use Only DO Not Attach Compendium DO Not Attach Compendium, Do Not Delete/merge, 12/09/2017 10:14:50 12/10/19 18 12/09/2017 urina lysis , dipst ick Protein Negati ve Not Available In-Office Order Internal Use Only DO Not Attach Compendium DO Not Attach Compendium, Do Not Delete/merge, 12/09/2017 10:14:50 12/10/19 18 12/09/2017 urina lysis , dipst ick pH 5.5 Not Available In-Office Order Internal Use Only DO Not Attach Compendium DO Not Attach Compendium, Do Not Delete/merge, 12/09/2017 10:14:50 12/10/19 18 12/09/2017 urina lysis , dipst ick Blood Small Not Available In-Office Order Internal Use Only DO Not Attach Compendium DO Not Attach Compendium, Do Not Delete/merge, 12/09/2017 10:14:50 12/10/19 18 12/09/2017 urina lysis , dipst ick Specific Hitchcock 1.025 Not Available In-Off ice Order Internal Use Only DO Not Attach Compendium DO Not Attach Compendium, Do Not Delete/merge, 12/09/2017 10:14:50 12/10/19 18 12/09/2017 urina lysis , dipst ick Ketone Trace Not Available In-Office Order Internal Use Only DO Not Attach Compendium DO Not Attach Compendium, Do Not Delete/merge, 12/09/2017 10:14:50 12/10/19 18 12/09/2017 urina lysis , dipst ick Bilirubin Negati ve Not Available In-Office Order Internal Use Only DO Not Attach Compendium DO Not Attach Compendium, Do Not Delete/merge, 12/09/2017 10:14:50 12/10/19 18 12/09/2017 urina lysis , dipst ick Glucose Negati ve Not Available In-Office Order Internal Use Only DO Not Attach Compendium DO Not Attach Compendium, Do Not Delete/merge, [id number] 12/09/2017 10:14:50 12/10/19 18 12/10/2017 TSH + free T4, serum TSH 2.240 uIU/m L 0.450- 4.500 Not Available [facility] ([facility]) [address] [place], [address], 12/11/2017 06:06:20 12/10/19 18 12/10/2017 TSH + free T4, serum T4,free(dire ct) 1.29 NG/dL 0.93-1 .60 Not Available [facility] ([facility]) [address] [place], [address], 12/11/2017 06:06:20 12/10/19 18 12/10/2017 testo stero ne, free + total , serum testosterone , serum 27 NG/dL FEMAL E TANNE R STAGE 1 <3 - 6 2 <3 - 10 3 <3 - 24 4 <3 - 27 5 5 - 38 Not Available [facility] ([facility]) [address] [place], [address], 12/11/2017 06:06:20 12/10/19 18 12/11/2017 testo stero ne, free + total , serum free testosterone (direct) 4.1 pg/mL not estab. Not Available [facility] ([facility]) [address] [place], [address], 12/11/2017 06:06:20 12/10/19 18 12/10/2017 dhea- sulfa te, serum DHEA-sulfate 248.0 ug/dL 110.0- 433.2 Not Available [facility] ([facility]) [address] [place], [address], 12/11/2017 06:06:20 12/10/19 18 12/10/2017 prola ctin, serum prolactin 8.7 NG/mL 4.8-23 .3 Not Available [facility] ([facility]) [address] [facility], [place], [address], 12/11/2017 06:06:21 12/10/19 18 12/11/2017 HIV 1+2 AB + HIV 1 p24 Ag, quali tativ e immun oassa y, serum HIV screen 4TH generation wrfx NON REACTI VE non reacti ve Not Available [facility] ([facility]) [address] [place], [address], 12/11/2017 06:06:21 12/10/19 18 12/11/2017 hepat itis panel (A+B+ C), acute , serum hep A Ab, IgM NEGATI VE negati ve Not Available [facility] ([facility]) [address] [place], [address], 12/12/2017 06:07:22 12/10/19 18 12/11/2017 hepat itis panel (A+B+ C), acute , serum HBsAg screen NEGATI VE negati ve Not Available [facility] ([facility]) [address] [place], [address], 12/12/2017 06:07:22 12/10/19 18 12/11/2017 hepat itis panel (A+B+ C), acute , serum hep B core Ab, IgM NEGATI VE negati ve Not Available [facility] ([facility]) [address] [place], [address], 12/12/2017 06:07:22 12/10/1912/11/2017 hepat itis panel (A+B+ C), acute , serum hep C virus Ab <0.1 s/co_ ratio 0.0-0. 9 Negat alejandra: < 0.8 Indet ermin ate: 0.8 - 0.9 Posit alejandra: > 0.9 The [facility] recom mends that a posit alejandra HCV antib mariluz resul t be follo wed up with a HCV Nucle ic Acid Ampli ficat ion test (5507 13). Not Available [facility] ([facility]) [address] [facility] [place], [address], 12/12/2017 06:07:22 12/10/19 18 12/12/2017 RPR (rapi d plasm a reagi n), serum RPR NON REACTI VE non reacti ve Not Available [facility] ([facility]) [address] [facility], [place], [address], 12/12/2017 06:07:23 12/10/19 18 12/11/2017 hepat itis B surfa ce Ab, quali tativ e, serum hep B surface Ab, qual NON REACTI VE Non React alejandra: Incon siste nt with immun ity, less than 10 mIU/m L React alejandra: Consi stent with immun ity, great er than 9.9 mIU/m L Not Available [facility] ([facility]) [address] [facility], [place], [address], 12/12/2017 06:07:23 12/10/19 18 12/11/2017 hsv-2 (herp es simpl ex virus type 2) igg Ab, serum hsv 2 IgG, type spec <0.91 index 0.00-0 .90 Negat alejandra <0.91 Equiv ocal 0.91 - 1.09 Posit alejandra >1.09 Note: Negat alejandra indic ates no antib odies detec yuriy to HSV-2 . Equiv ocal may sugge st early infec tion. If clini rickey appro priat e, retes t at later date. Posit alejandra indic ates antib odies detec yuriy to HSV-2 . Not Available [facility] ([facility]) [address] [facility], [place], [address], 12/12/2017 06:07:24 12/10/19 18 12/09/2017 pleas e note please note COMMEN T We have recei karly your reque st for addit ional testi ng or test verif icati on. You will be notif ied if we are unabl e to proce ss your reque st. Not Available [facility] ([facility]) [address] [facility], [place], [address], 12/12/2017 06:07:24 12/10/19 18 12/09/2017 writt en autho jailyn jain written authorizatio n KELLI T Juani en Autho jailyn jain Recei karly. Autho jailyn ion recei karly from [facility] 12-09 Logge d by Anmol Cooper Not Available [facility] ([facility]) [address] [facility], [place], [address], 12/12/2017 06:07:25 12/10/19 18 12/12/2017 bacte rial vagin osis + vagin itis panel , vagin al atopobium vaginae LOW - 0 score Not Available [facility] ([facility]) [address] [facility], [place], [address], 12/13/2017 06:06:35 12/10/19 18 12/12/2017 bacte rial vagin osis + vagin itis panel , vagin al bvab 2 LOW - 0 score Not Available [facility] ([facility]) [address] [facility], [place], [address], 12/13/2017 06:06:35 12/10/19 18 12/12/2017 bacte rial vagin osis + vagin itis panel , vagin al megasphaera 1 LOW - 0 score Calcu late total score by alvin salazar the 3 indiv idual bacte rial vagin osis (BV) marke r score s toget her. Total score is inter prete d as follo ws: Total score 0-1: Indic ates the absen ce of BV. Total score 2: Indet ermin ate for BV. Addit ional clini dolores data shoul d be evalu ated to estab earl a diagn osis. Total score 3-6: Indic ates the prese nce of BV. This test was devel oped and its perfo rmanc e ivory cteri stics deter mined by [facility]. It has not been clear ed or appro karly by the Food and Drug Admin istra tion. The FDA has deter mined that such clear ance or appro rosette is not neces gabriela. Not Available [facility] ([facility]) [address] [place], [address], 12/13/2017 06:06:35 12/10/19 18 12/12/2017 bacte rial vagin osis + vagin itis panel , vagin al royce albicans, TOM POSITI VE negati ve abnormal Not Available [facility] ([facility]) [address] [facility], [place], [address], 12/13/2017 06:06:35 12/10/19 18 12/12/2017 bacte rial vagin osis + vagin itis panel , vagin al royce glabrata, TOM NEGATI VE negati ve This test was devel oped and its perfo rmanc e ivory cteri stics deter mined by [facility]. It has not been clear ed or appro karly by the Food and Drug Admin istra tion. The FDA has deter mined that such clear ance or appro rosette is not neces gabriela. Not Available [facility] ([facility]) [address] [facility], [place], [address], 12/13/2017 06:06:35 12/10/19 18 12/12/2017 bacte rial vagin osis + vagin itis panel , vagin al trich vag by TOM NEGATI VE negati ve Not Available [facility] ([facility]) [address] [place], [address], 12/13/2017 06:06:35 12/10/19 18 12/12/2017 bacte rial vagin osis + vagin itis panel , vagin al chlamydia trachomatis, TOM NEGATI VE negati ve Not Available [facility] ([facility]) [address] [place], [address], 12/13/2017 06:06:35 12/10/19 18 12/12/2017 bacte rial vagin osis + vagin itis panel , vagin al neisseria gonorrhoeae, TOM NEGATI VE negati ve Not Available [facility] ([facility]) [address] [place], [address], 12/13/2017 06:06:35 12/10/19 18 12/12/2017 HSV (1+2) DNA, qual, PCR, unspe cifie d speci men hsv 1 TOM NEGATI VE negati ve Not Available [facility] ([facility]) [address] [place], [address], 12/13/2017 06:06:35 12/10/19 18 12/12/2017 HSV (1+2) DNA, qual, PCR, unspe cifie d speci men hsv 2 TOM NEGATI VE negati ve Not Available [facility] ([facility]) [address] [place] [address], [address], 12/13/2017 06:06:35 03/31/20 18 04/01/2018 CT + NG + TV, DNA, urine /swab chlamydia by TOM NEGATI VE negati ve Not Available [facility] ([facility]) [address] [place] [address], [address], 04/02/2018 06:06:50 03/31/20 18 04/01/2018 CT + NG + TV, DNA, urine /swab gonococcus by TOM NEGATI VE negati ve Not Available [facility] ([facility]) [address] [place] [address], [address], 04/02/2018 06:06:50 03/31/20 18 04/01/2018 CT + NG + TV, DNA, urine /swab trich vag by TOM NEGATI VE negati ve Not Available [facility] ([facility]) [address] [place] [address], [address], 04/02/2018 06:06:50 08/07/20 18 08/08/2018 HCG, intac t + beta subun it, quant , serum or plasm a HCG,beta subunit,qnt, serum <1 mIU/m L Femal e (Non- pregn ant) 0 - 5 (Post menop ausal ) 0 - 8 Femal e (Preg nant) Weeks of Gesta tion 3 6 - 71 4 10 - 750 5 010 - 9835 6 850 - 41749 7 7917 -0487 63 8 88544 -9114 71 9 94086 -9058 10 10 00625 -5831 77 12 96043 -8676 12 14 74940 - 01214 15 55709 - 98241 16 2894 - 51174 17 5077 - 91537 18 0691 - 15553 Mars ECLIA metho dolog y Not Available [facility] ([facility]) [address] [facility], [place], [address], 08/08/2018 06:17:51 Result Notes None recorded. Problems Name Problem SNOMED Code Status Onset Date Resolution Date Notes Provider Name and Address Organization Details Recorded Time Depressive disorder 28778399 Active 2017 Yoseph Chandler MD Attn: Accounting, [address] [facility], [place], [address], [facility] 8 10:21:20 Vitamin deficiency 88578908 Active 2017 Yoseph Chandler MD Attn: Accounting, [address] [place], [address], [facility] 8 10:21:35 Problem Notes None recorded. Procedures Surgical History Date Name Laterality Status Provider Name and Address Organization Details Recorded Time Tonsillectomy completed Laney Salinas MA [facility] 12/09/2017 10:11:48 Imaging Results None recorded. Procedure Notes None recorded. Medical Equipment None Reported. Allergies Allergen ID Allergen Name Allergen Category Reaction Reaction Severity Criticality Documentation Date Start Date Code Code System Note Provider Name and Address Organization Details Recorded Time [id number] latex environme nt,medica tion itching severe Not available 12/09/2017 53204 91 RxNorm Not Available Not Available Not Available Medications Name Sig Start Date Stop Date Status Note LastModified by Organization Details LastModified Time cyclobenzapri ne 10 mg tablet 05/22 completed Not Available Not Available Not Available buspirone 5 mg tablet 05/22 completed Not Available Not Available Not Available metformin 500 mg tablet Take 1 tablet twice a day by oral route. 05/22 completed Not Available Not Available Not Available polyethylene glycol 3350 17 gram oral powder packet 12/09 completed Not Available Not Available Not Available azithromycin 250 mg tablet 12/09 completed Not Available Not Available Not Available fluconazole 150 mg tablet Take 1 tablet by oral route for 1 day. 05/22 completed Not Available Not Available Not Available ondansetron HCl 8 mg tablet 12/09 completed Not Available Not Available Not Available metronidazole 500 mg tablet Take 1 tablet twice a day by oral route for 7 days. 05/22 completed Not Available Not Available Not Available triamcinolone acetonide 0.1 % topical cream 12/09 completed Not Available Not Available Not Available alprazolam 0.5 mg tablet active Not Available Not Availabl e Not Available amitriptyline 25 mg tablet 12/09 completed Not Available Not Available Not Available dicyclomine 20 mg tablet 12/09 completed Not Available Not Available Not Available ranitidine 150 mg tablet 05/22 completed Not Available Not Available Not Available ergocalcifero l (vitamin D2) 1,250 mcg (50,000 unit) capsule 05/22 completed Not Available Not Available Not Available methylprednis olone 4 mg tablets in a dose pack 12/09 completed Not Available Not Available Not Available ondansetron 4 mg disintegratin g tablet 12/09 completed Not Available Not Available Not Available medroxyproges terone 150 mg/mL intramuscular suspension 12/09 completed Not Available Not Available Not Available loratadine 10 mg tablet 12/09 completed Not Available Not Available Not Available naproxen 500 mg tablet 12/09 completed Not Available Not Available Not Available NuvaRing 0.12 mg-0.015 mg/24 hr vaginal 05/22 completed Not Available Not Available Not Available TriNessa (28) 0.18 mg(7)/0.215 mg(7)/0.25 mg(7)-35 mcg tablet 05/22 completed Not Available Not Available Not Available ibuprofen 05/22 completed Not Available Not Available Not Available Vitals Date Recorded Body height Provider Name an d Address Organization Details Last Updated DateTime 12/09/2017 158.75 cm Laney Salinas MA [facility] 12/09/2017 10:00:13 Date Recorded Body mass index (BMI) Body weight Provider Name and Address Organization Details Last Updated DateTime 12/09/2017 38.2 kg/m2 07568.58 g Laney Salinas MA [facility] 10:00:22 Date Recorded Body height Provider Name an d Address Organization Details Last Updated DateTime 05/22/2018 158.75 cm Laney Salinas MA [facility] 05/22/2018 11:15:30 Date Recorded Body mass index (BMI) Body weight Provider Name and Address Organization Details Last Updated DateTime 05/22/2018 38.3 kg/m2 88177.17 g Laney Salinas MA [facility] 11:15:41 Date Recorded Systolic blood pressure Diastolic blood pressure Provider Name and Address Organization Details Last Updated DateTime 12/09/2017 134 mm[Hg] 82 mm[Hg] Kecia Jung MA [facility] 12/09/2017 12:12:44 Date Recorded Systolic blood pressure Diastolic blood pressure Provider Name and Address Organization Details Last Updated DateTime 05/22/2018 106 mm[Hg] 60 mm[Hg] Laney Salinas MA [facility] 05/22/2018 11:15:49 Social History Question Answer Notes LastModified by Organizat ion Details LastModified Time Tobacco Smoking Status Current Every Day Smoker [facility] 12/09/2017 10:09:36 Do You Have An Advance Directive? No Information not available 12/09/2017 What Is Your Level Of Alcohol Consumption? None Information not available 12/09/2017 Is Blood Transfusion Acceptable In An Emergency? Yes Information not available 12/09/2017 What Is Your Level Of Caffeine Consumption? Heavy Information not available 12/09/2017 How Much Tobacco Do You Chew? None Information not available 12/09/2017 Are You Currently Employed? Yes Information not available 05/22/2018 What Type Of Diet Are You Following? REGULAR Information not available 12/09/2017 Which Illicit Or Recreational Drugs Have You Used? None Information not available 12/09/2017 Education 12 Information no t available 12/09/2017 What Is Your Occupation? [employer] Information not available 05/22/2018 Live Alone Or With Others? With Others Aunt Information not available 05/22/2018 What Was The Date Of Your Most Recent Tobacco Screening? 05/22/2018 Information not available 03/25/2019 How Many Children Do You Have? 0 Information not available 12/09/2017 Performs Monthly Self-breast Exam? Yes Information not available 12/09/2017 Do You Use Protection During Sex? No Information not available 12/09/2017 What Is Your Relationship Status? Domestic Partner Information not available 05/22/2018 Seat Belts Used Routinely Yes Information not available 12/09/2017 Are You Sexually Active? Yes Information not available 12/09/2017 At What Age Did You Start Smoking Tobacco? 12 Information not available 12/09/2017 How Much Tobacco Do You Smoke? 0.25 PPD 5 Cigs Per Day Information not available 05/22/2018 General Stress Level Medium Information not available 12/09/2017 Do You Use Sunscreen Routinely? No Information not available 12/09/2017 How Many Years Have You Smoked Tobacco? 6 Information not available 05/22/2018 Sex: Unknown Functional Status Question Answer Note LastModified by Organization D etails LastModified Time What is your exercise level? Moderate Information not available 12/09/2017 Mental Status None recorded. Family History Relationship Description Onset Age of this Age Resolved Age Notes LastModified by Organization Details LastModified Time Mother Asthma And great ganmot her Not available 12/09/2017 10:07:05 Mother Attention deficit hyperactivit y disorder Not available 12/09 10:07:22 Mother Diabetes mellitus Not available 2017 10:07:42 Mother Hypertensive disorder Not available 2017 10:08:45 Father Attention deficit hyperactivit y disorder Not available 12/09 10:07:14 Father Depressive disorder Not available 2017 10:07:52 Father Blood coagulation disorder Not available 2017 10:08:19 Father Hypertensive disorder Not available 2017 10:08:37 Sister Attention deficit hyperactivit y disorder Not available 12/09 10:07:26 Sister Depressive disorder Not available 2017 10:08:02 Paternal Grandfather Cerebrovascu lar accident Not available 06/2018 10:08:11 Paternal Aunt Hypertensive disorder Not available 2017 10:08:49 Maternal Aunt Migraine Not elijah ilable 12/09/2017 10:09:25 Medical History Condition Response Other Y High Blood Pressure N Breast Cancer N Thyroid Problems N Kidney or Bladder Problems N GI Problems N Depression Y Blood Clots N Lung Disease N Acne N Eating Disorder N Breast Problem N Anemia N Anesthesia Complications N Headaches/Migraines Y Anxiety Disorder Y Diabetes N Ovarian Cancer N Muscle, Joint, or Bone Problems N Blood Transfusions N Seizures/Epilepsy N Polyps N Infertility N Acid Reflux (GERD) N Cancer N Abuse/Domestic Violence N Asthma N Endometriosis N High Cholesterol N Hepatitis N Liver Disease N Heart Disease N Pre-Eclampsia N Osteoporosis N Gynecological History Statement/Question Response Abnormal Pap N Flow Heavy On BCP's at Conception? N STIs/STDs N HPV Vaccine N Duration of Flow (days) 4 Age at Menarche 11 Current Control Method None Sexually Active? Y Menses Monthly N Date of Last Pap Smear Sexual Problems? Y LMP Approximate Obstetrics History GPAL:G 0 P 0 0 0 0 Type Value Multiple Births 0 Full Term 0 Induced 0 Spontaneous 0 Premature 0 Living 0 Ectopics 0 Total 0 Past Encounters Encounter ID Performer Location Encounter Start Date Encounter Closed Date Diagnosis/Indication Diagnosis SNOMED-CT Code Diagnosis ICD10 Code Diagnosis Note [id number] MD Adeline Ortiz ([facility]) [address] [place] [address] 12/09/2017 09:26:44 12/09/2017 14:48:44 Gynecologic examination 49448171 Z01.411 Age appropriat e counseling done. Venereal d isease screening 123205079 Z11.3 Z20.2 Polycystic ovaries 33583 008 E28.2 counseled about different causes of irregular periods including PCOS. Counseled about insulin resistance , effect of insulin on androgens, menstrual periods, estrogen levels and its effect on EMT, breast, metabolic syndrome. Counseled About weight loss, diet and excercise. Bacterial vaginosis 4197 54327 N76.0 Counseled about it. Obese 696246620 E66.9 Counseled About weight loss, diet and excercise. Advised to see lining maker hand. Family theodore nning surveillance 578692502 Z30.09 Patient on nuvaring. She say she has enough refills. Counseled about it. [id number] MD Adeline Ortiz ([employer]) [address] [place] [id number] 05/22/2018 10:51:32 05/22/2018 11:44:43 Polycystic ovaries 24273039 E28.2 D/W patient lab work nuswab. Counseled about importance of continuing metformin and its side effects. Advised patient that if she has nausea that there is treatment for it. She said she will start metformin and if she has nausea she will call back. Also counseled about importance of doing TVUS and gave her a order copy. Obese [id number] E66.9 Counseled About weight loss, diet and excercise. Advised to see lining maker hand. Health Concerns Section Related Observation LastModified by Organization Detai ls LastModified Time None Recorded Concern Status LastModified by Organization Details LastModified Time None Recorded Advance Directives Directive N: Payers Encounter Date Sequence Insurance Name Policy Number Policy Chong Covered Member ID Chong Member ID Guarantor Name 12/09/2017 1 [facility] PRIOR TO 03/01/2021 (MEDICAID REPLACEMENT - HMO) Eileen López [id number] 05/22/2018 1 [facility] PRIOR TO 03/01/2021 (MEDICAID REPLACEMENT - HMO) Eileen López [id number] Notes Date Note Type Note Provider Name and Address Organization Details Recorded Time 12/09/2017 text/html Annual GYNReport ed bypatient.History: no gynecologic complaints Menstrual cycle:Normal menses; Patient say she misses periods 2-3 months sometimes. She say some times periods are heavy. She say she has acne over forehead.\ Patient say she tried depo provera and OCP'S early this year and did not like them. She say she is currently on nuvaring. She say she has enough samples. Urinary symptoms:No hematuria; No incontinence Vulva:No genital lesion Vagina:White Breast:No breast pain; No breast lump; No nipple discharge Current Contraception:Nuva ring Sexual complaints:No sexual complaints; No pain during intercourse; Normal libido Menopausal Symptoms:No menopausal symptoms; Normal vaginal lubrication Psychological symptoms:No depression; No anxiety; No PMDD Preventive measures:Encourage self breast examination; Encourage regular exercise; Encourage no tobacco use; Encourage regular mammograms starting age 40; also counseled about calcium intake and advised to start over the counter calcium treatment. Yoseph [place] MD Attn: [facility],[address] [place], [address], [facility] 12/09/2017 14:01:58 05/22/2018 text/html came for f/u on test results. she denies any abnormal vaginal bleeding, pelvic pain, vaginal discharge.Patient say she stopped metformin because she has minimal nausea. She say she did not do ultrasound. Yoseph [place] MD Attn: [facility],[address] [place], [address], [facility] 05/22/2018 12:27:33 OBGyn Episode No OBEpisode recorded.
--- OUTSIDE RECORDS SUMMARY | 2024-09-26 14:54 | XMS_ITS ---
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 Role Phone Kristen Guerrero Primary Care Provider [phone] Zuleyma Faustin Unavailable [phone] REASON FOR VISIT Therapy Encounters Encounter Location Date Provider Diagnosis [place] [address] [place] [address] 09/03/2024 Zuleyma Faustin Borderline personality disorder F60.3 Assessments Encounter Date Diagnosis (ICD Code) Assessment Notes Treatment Notes Treatment Clinical Notes Section Notes 09/03/2024 Borderline personality disorder (ICD-10 - F60.3) Plan Of Treatment No Information Progress Notes * Eileen ANTHONYDOB:2000 (24 yo F)Acc No.[id number]:09/03/2024 Patient:?Eileen ANTHONY Provider:?Zuleyma Faustin :2000???Age:24 Y???Sex:Female D ate:09/03/2024 Address:[address] [place], [place] [id number] Pcp:Shasha Kilpatrick Subjective: * Chief Complaints: * [...] in behavioral health treatment ..?Behavioral Health Treatment:? Teletype Installer met with Eileen for session providing individual therapy. Teletype Installer utilized solution focused approach: active listening, validation, motivational interviewing along with facilitating feedback and introspection skills Eileen is working on. Teletype Installer acknowledged insights with patterns and skills, assisted in re-framing, and growth (working on changes in behaviors and responses with factors in relationships and self). * Medical History:? * Medications:? Objective: * Examination: ???General Examination: ???Eileen reflected on factors in relationships (still working, talking with mother more frequently, around the holidays she began to feel sad again with losing family members and traditions). Eileen and keno writer discussed?changes (prioritizing goals and taking time to reflect on thoughts). Eileen acknowledged pieces/factors of healthy insight and changes she would like to implement as she moves forward. Assessment: * Assessment: 1.?Borderline personality di sorder - F60.3 (Primary)??? Plan: * Treatment: * Procedure Codes:?54600 PSYTX PT&/FAMILY 30 MINUTES, Modifiers: AJ * Care Plan Details* * K STITCHER Electronically co-signed by Francheska De Anda LCSW, [id number] on 09/03/2024 at 04:08 PM SHANK STITCHER Sign off status: Completed true * Provider:?Zuleyma Faustin Date:?09/03/19 Generated for Carlos brown/Macy/eTransmitting on:?09/26/2024 02:53 PM SHANK STITCHER History and Physical Notes * HPI (History [...] Eileen olmos eflected on factors in relationships (still working, talking with mother more frequently, around the holidays she began to feel sad again with losing family members and traditions). Eileen and keno writer discussed changes (prioritizing goals and taking time to reflect on thoughts). Eileen acknowledged pieces/factors of healthy insight and changes she would like to implement as she moves forward
--- OUTSIDE RECORDS SUMMARY | 2024-09-26 14:54 | XMS_ITS | Data Portability ---
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 Plan of Treatment Reminders Order Date Submit Date Provider Last Modified By Organization Details Last Modified Time Details Appointments None recorded. Lab test, urine 2024 025 [facility], [address] [place] [address], [place], [address], 5 12:42:05 CBC w/ auto diff 2024 025 [facility] (Lab), [address] [place], [address], 5 11:23:43 iron + total iron-bindin g capacity (TIBC), serum 2024 025 [facility] (Lab), [address] [place], [address], 5 11:23:43 TSH, serum or plasma 2024 025 [facility] (Lab), [address] [place], [address], 5 11:23:43 vitamin B12, serum 2024 025 [facility] (Lab), [address] [place], [address], 5 11:23:43 vitamin D3, 25-hydroxy, serum 2024 025 [facility] ([facility]), [address], [place], [address], 5 11:23:43 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 Thank you 2023 024 [email or web address] [facility], [address] [place] [address] Dr, [place], [address], 4 08:57:00 Procedures None recorded. Surgeries None recorded. Imaging XR, hip, unilateral 2023 024 [email or web address] 256 [facility], [address] [place] [address] , [place], [address], 4 08:57:39 Medication Orders diclofenac 1 % topical gel 2023 024 [email or web address][id number], [address] [facility] [facility], [place], [address], 4 14:04:41 Medrol (Favio) 4 mg tablets in a dose pack 2023 024 [id number], [address], [place], [address], 4 15:27:28 ketorolac 60 mg/2 mL intramuscul ar solution 2023 024 Not available 4 15:27:37 cyclobenzap rine 10 mg tablet [address] [id number], [address], [place], [place], [id number], 4 14:54:12 diclofenac sodium 75 mg tablet,aster yed release [address] [id number], [address], [place], [place], [id number], 5 11:15:35 diclofenac sodium 75 mg tablet,aster yed release [address] [facility][id number], [address], [place], [place], [id number], 5 11:15:35 Bactrim DS 800 mg-160 mg tablet [address] [facility][id number], [address], [place], [id number], 5 11:16:06 escitalopra m 20 mg tablet [address] [facility][id number], [address], [place], [place], [id number], 5 11:16:00 Patient TargetsNo targets recorded. 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 Thank you Referring Physician: Family Omar Medicine, Encounter Date: 07/27/2024 Results Created Date Observation Date Name Description Value Unit Range Abnormal Flag Note LastModifiedBy Organization Detail LastModifiedTime 09/24/1909/24/2024 pregn claudia test, urine HCG negati ve Not Available [facility] [address] [facility], [place], [address], 09/24/2024 11:32:28 Result Notes None recorded. Problems Name Problem SNOMED Code Status Onset Date Resolution Date Notes Provider Name and Address Organization Details Recorded Time Injury of ankle 050246559 Completed 03/16/2024 MILLI Nelson [address], [place], [address] , [employer] 4 14:22:22 Pain in pelvis 54839291 Active Not Available [facility] 3 15:35:49 Diverticu lar disease 075053468 Active 2016 Not Available [facility] 3 15:35:49 Pain in limb 40206255 Active Not Available [facility] 3 15:35:49 Migraine 61969411 Active 2022 Not Available [facility] 3 15:35:49 Nausea and vomiting 82498938 Active 2022 Not Available [facility] 3 15:35:49 Morbid obesity 812602900 Active 2022 Not Available [facility] 3 15:35:49 Anxiety 93879906 Active 2022 Not Available [facility] 3 15:35:49 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 2022 Not Available [facility] 3 15:35:49 Injury of right knee 22052535443 693127 Completed 202203/16/2024 MILLI Nelson [address] [facility], [address], [place], [address] , [employer] 4 14:24:11 Injury of left knee 03990994795 4106 Active 2022 Not Available [facility] 3 15:35:49 Fatigue 65903310 Active 2022 Not Available [facility] 3 15:35:49 Iliotibia l band friction syndrome of left knee 40667454163 9102 Completed 202203/16/2024 MILLI Nelson [address], [address], [place], [address] , [address] [facility] [employer] [facility] 4 14:22:19 Rib pain 161054416 Active 2022 Not Available [facility] 3 15:35:49 Fracture of tibial plateau 586067474 Completed 202203/16/2024 MILLI Nelson [address], [address], [place], [address] , [address] [employer] [facility] 4 14:22:09 Pain of left knee joint 16560414317 4107 Active 2022 Not Available [facility] 3 15:35:49 Closed fracture of tibial plateau 330058085 Active 2022 Not Available [facility] 3 15:35:49 Hyperemes is gravidaru m 88129328 Completed 202203/16/2024 MILLI Nelson [address], [address], [place], [address] , [email or web address] [facility] [employer] [facility] 4 14:22:13 Paronychi a of toe of right foot 00501938272 677538 Active [address], [place], [address] , [address] [facility] [employer] [facility] 4 10:18:38 Carpal tunnel syndrome of right wrist 81551316532 9108 Active 2023 MILLI Nelson [address], [address], [place], [address] , [address] [facility] [employer] [facility] 4 10:19:21 Bronchiti s 21542569 Active 2023 MILLI Nelson [address], [address], [place], [address] , [email or web address] [facility] [employer] [facility] 4 14:29:21 Plantar wart of right foot 61874184306 513501 Active 2023 MILLI Nelson [address], [address], [place], [address] , [facility] [address] [employer] 4 14:54:06 Pain in right hip joint 14646404554 9102 Active 2023 Lio Mazariegos MD [address], [address], [place], [address] , [facility] [address] [employer] [facility] 4 14:50:24 Sprain of right hip 49472135671 031581 Active 2023 Lio Mazariegos MD [address], [address], [place], [address] , [facility] [address] [employer] [facility] 4 14:51:01 Obesity 780793767 Active 2023 Lio Mazariegos MD [address], [address], [place], [address] , [facility] [address] [employer] [facility] 4 14:57:57 Abscess of skin and/or subcutane ous tissue 32810754 Active 2023 MILLI Nelson [address], [address], [place], [address] , [facility] [address] [employer] [facility] 4 15:45:00 Low back pain 728276093 Active 2023 MILLI Nelson [address], [address], [place], [address] , [facility] [address] [facility] 4 15:47:46 Dizziness 795211695 Active 2024 MILLI Nelson [address], [address], [place], [address] , [facility] [address] [facility] 5 11:30:21 Amenorrhe a 81843795 Active 2024 MILLI Nelson [address], [address], [place], [address] , [facility] [employer] 5 11:32:23 Vitamin D deficienc y 72139626 Active 2024 Nieves MILLI Colón [address] [facility], [place] [address], [place], [address] , [address] [facility] [employer] 5 15:04:28 Problem Notes None recorded. Procedures Surgical History Date Name Laterality Status Provider Name and Address Organization Details Recorded Time 4 Cryosurgery Warts/Skin Tags completed Nieves SilvaMILLI grande [address] [facility], [facility] [address], [place], [address], [employer] 03/16/2024 14:52:35 Imaging Results None recorded. Procedure Notes None recorded. Medical Equipment None Reported. Allergies Allergen ID Allergen Name Allergen Category Reaction Reaction Severity Criticality Documentation Date Start Date Code Code System Note Provider Name and Address Organization Details Recorded Time 82229 Buspar medicatio n nausea vomiting Not available Not available Not available 10/30/2022 52878 0 RxNorm Not Available [facility] 3 07:34:58 27500 clonidine medicatio n Not available Not available Not available 01/13/2024 2599 RxNorm Wilma Richards RN [facility] [employer] 4 09:50:27 06720 lorazepam medicatio n Not available Not available Not available 07/27/2024 6470 RxNorm Wilma Richards RN [facility] [employer] [facility] 4 15:27:59 Medications Name Sig Start Date Stop Date Status Note LastModified by Organization Details LastModified Time cyclobenzap rine 10 mg tablet TAKE 1 TABLET BY MOUTH EVERY 12 HOURS NEEDED active Not Available Not Available No t Available buspirone 5 mg tablet Take 1 tablet twice a day by oral route. active Not Available Not Available No t Available metformin 500 mg tablet 06/03 completed Not Available Not Available Not Available clonidine HCl 0.1 mg tablet 06/05 completed Not Available Not Available Not Available Vitamin B-6 25 mg tablet TAKE 1 TABLET BY MOUTH EVERY DAY 01/12 completed Not Available Not Available Not Available polyethylen e glycol 3350 17 gram oral powder packet MIX 1 PACKET IN 8 OUNCES OF WATER OR JUICE AND DRINK PO D 07/16 completed Not Available Not Available Not Available cetirizine 10 mg tablet Take 1 tablet every day by oral route. active Not Available Not Available No t Available azithromyci n 250 mg tablet TAKE 2 TABLETS (500 MG) BY ORAL ROUTE ONCE DAILY FOR 1 DAY THEN 1 TABLET (250 MG) BY ORAL ROUTE ONCE DAILY FOR 4 DAYS 04/15 completed Not Available Not Available Not Available ibuprofen 800 mg tablet TAKE 1 TABLET BY MOUTH 3 TIMES A DAY 01/12 completed Not Available Not Available Not Available fluconazole 150 mg tablet TK 1 T PO FOR 1 DOSE 06/03 completed Not Available Not Available Not Available sumatriptan 100 mg tablet Take 1 tab at first sign of migraine, repeat in 2 hrs if needed active Not Available Not Available No t Available ondansetron HCl 8 mg tablet Take 1 tablet every 8 hours by oral route prn 03/05 completed Not Available Not Available Not Available metronidazo le 0.75 % (37.5 mg/5 gram) vaginal gel INSERT 1 APPLICATO RFUL INTO VAGINA DAILY AT BEDTIME FOR 5 DAYS 01/12 completed Not Available Not Available Not Available ondansetron HCl 4 mg tablet TAKE 1 TABLET BY MOUTH EVERY 8 HOURS 03/21 completed Not Available Not Available Not Available rizatriptan 10 mg tablet TAKE 1 TABLET BY MOUTH AT ONSET OF HEADACHE. MAY REPEAT IN 2 HOURS IF NEEDED 01/12 completed Not Available Not Available Not Available sumatriptan 50 mg tablet TAKE 1 TABLET BY MOUTH AT ONSET OF HEADACHE, MAY REPEAT IN 2 HOURS IN NEEDED 12/18 completed Not Available Not Available Not Available meclizine 12.5 mg tablet Take 1 tablet 3 times a day by oral route as needed for 30 days. 01/12 completed Not Available Not Available Not Available metronidazo le 500 mg tablet 06/03 completed Not Available Not Available Not Available oxcarbazepi ne 300 mg tablet 06/05 completed Not Available Not Available Not Available phentermine 37.5 mg tablet TAKE 1 TABLET BY MOUTH EVERY DAY 03/05 completed Not Available Not Available Not Available sulfamethox azole 800 mg-trimetho prim 160 mg tablet Take 1 tablet every 12 hours by oral route as directed for 7 days. 09/24 completed Not Available Not Available Not Available tramadol 50 mg tablet Take 1 tablet every 6 hours by oral route. 12/18 completed Not Available Not Available Not Available acetaminoph en 500 mg tablet TAKE 1 TABLET BY MOUTH EVERY 8 HOURS X10 DAYS 03/16 completed Not Available Not Available Not Available triamcinolo ne acetonide 0.1 % topical cream Apply 1 applicati on twice a day by topical route for 30 days. active Not Available Not Available No t Available amoxicillin 500 mg tablet TAKE 1 TABLET BY MOUTH EVERY 8 HOURS X10 DAYS 01/12 completed Not Available Not Available Not Available alprazolam 0.5 mg tablet TAKE 1 TABLET BY MOUTH EVERY 12 HOURS NEEDED 07/27 completed Not Available Not Available Not Available amoxicillin 875 mg tablet Take 1 tablet every 12 hours by oral route for 7 days. 12/15 completed Not Available Not Available Not Available amitriptyli ne 25 mg tablet TAKE 1 TABLET BY MOUTH AT BEDTIME active Not Available Not Available No t Available nicotine (polacrilex ) 4 mg gum CHEW 1 PIECE UP TO EVERY 1-2 HOURS NEEDED FOR CRAVINGS. MAY TAKE UP TO 20 PIECES PER DAY. 03/21 completed Not Available Not Available Not Available dicyclomine 20 mg tablet TK 1 T PO Q 6 H PRN 09/02 completed Not Available Not Available Not Available diazepam 2 mg tablet TAKE 1 TABLET BY MOUTH EVERY 8 HOURS NEEDED 03/05 completed Not Available Not Available Not Available pantoprazol e 40 mg tablet,aster yed release TAKE 1 TABLET BY MOUTH EVERY DAY FOR 14 DAYS 03/21 completed Not Available Not Available Not Available triamcinolo ne acetonide 0.1 % topical ointment APPLY SMALL AMOUNT TOPICALLY TO THE AFFECTED AREA TWICE DAILY 07/27 completed Not Available Not Available Not Available ranitidine 150 mg tablet Take 1 tablet twice a day by oral route. active Not Available Not Available No t Available nicotine 21 mg/24 hr daily transdermal patch APPLY 1 PATCH TOPICALLY TO THE SKIN EVERY DAY 03/21 completed Not Available Not Available Not Available docusate sodium 100 mg capsule TAKE 1 CAPSULE ORAL ROUTE 2 TIMES PER DAY 01/12 completed Not Available Not Available Not Available sertraline 25 mg tablet active Not Available Not Available Not Available diclofenac sodium 75 mg tablet,aster yed release Take 1 tablet twice a day by oral route with food as needed for pain. 09/24 completed Not Available Not Available Not Available Lotrimin AF (clotrimazo le) 1 % topical cream 06/03 completed Not Available Not Available Not Available ergocalcife rol (vitamin D2) 1,250 mcg (50,000 unit) capsule TAKE 1 CAPSULE BY MOUTH ONE TIME PER WEEK 2024 active Not Available Not Available Not Avai lable ibuprofen 600 mg tablet TAKE 1 TABLET BY MOUTH EVERY 6 HOURS NEEDED FOR CRAMPS 07/27 completed Not Available Not Available Not Available levofloxaci n 500 mg tablet Take 1 tablet every 24 hours by oral route. 12/18 completed Not Available Not Available Not Available methylpredn isolone 4 mg tablets in a dose pack Take as directed 07/27 completed Not Available Not Available Not Available labetalol 100 mg tablet TAKE 1 TABLET BY MOUTH TWICE A DAY 03/16 completed Not Available Not Available Not Available Prozac 10 mg capsule Take 1 capsule every day by oral route as directed for 90 days. 07/27 completed Not Available Not Available Not Available ketorolac 60 mg/2 mL intramuscul ar solution Inject 1 mL as needed by intramusc ular route for 1 day. 07/27 completed Not Available Not Available Not Available norethindro ne (contracept alejandra) 0.35 mg tablet 01/12 completed Not Available Not Available Not Available ondansetron 4 mg disintegrat ing tablet DISSOLVE 1 TABLET ON THE TONGUE EVERY 8 HOURS NEEDED FOR NAUSEA OR VOMITING. 03/16 completed Not Available Not Available Not Available fluoxetine 20 mg capsule TAKE 1 CAPSULE BY MOUTH DAILY 03/16 completed Not Available Not Available Not Available sertraline 50 mg tablet Take 1 tablet every day by oral route. active Not Available Not Available No t Available medroxyprog esterone 150 mg/mL intramuscul ar suspension INJECT INTO THE MUSCLE Q 3 MONTHS 06/03 completed Not Available Not Available Not Available lamotrigine 100 mg tablet TAKE 1 TABLET BY MOUTH ONCE DAILY STOP IF RASH OCCURS 03/21 completed Not Available Not Available Not Available loratadine 10 mg tablet TK 1 T PO QD FOR ALLERGY CONTROL 06/03 completed Not Available Not Available Not Available naproxen 500 mg tablet TAKE 1 TABLET BY MOUTH TWICE A DAY WITH FOOD 03/05 completed Not Available Not Available Not Available metoclopram cami 10 mg tablet TAKE 1 TABLET BY MOUTH EVERY 6 HOURS NEEDED 01/12 completed Not Available Not Available Not Available amoxicillin 875 mg-potassiu m clavulanate 125 mg tablet Take 1 tablet every 12 hours by oral route. active Not Available Not Available No t Available hydroxyzine pamoate 25 mg capsule TAKE 1 CAPSULE BY MOUTH TWICE A DAY NEEDED 03/05 completed Not Available Not Available Not Available Amphetamine Salt Combo 20 mg tablet 06/05 completed Not Available Not Available Not Available escitalopra m 20 mg tablet Take 1 tablet every day by oral route as directed for 90 days. 09/24 completed Not Available Not Available Not Available aripiprazol e 10 mg tablet TAKE 1 TABLET BY MOUTH EVERY DAY FOR 30 DAYS 03/05 completed Not Available Not Available Not Available aripiprazol e 15 mg tablet 03/05 completed Not Available Not Available Not Available aripiprazol e 5 mg tablet TAKE 1 TABLET BY MOUTH EVERY DAY 07/15 completed Not Available Not Available Not Available Tri-Sprinte c (28) 0.18 mg(7)/0.215 mg(7)/0.25 mg(7)-35 mcg tablet TK 1 T PO QD 03/21 completed Not Available Not Available Not Available clonidine 2013 active Not Available Not Available Not Avai lable methylpheni date HCl 06/05 completed Not Available Not Available Not Available Focalin 06/05 completed Not Available Not Available Not Available aripiprazol e 2 mg tablet TAKE 1 TABLET BY MOUTH EVERY DAY 03/21 completed Not Available Not Available Not Available quetiapine 50 mg tablet TAKE 1 TO 2 TABLETS BY MOUTH AT BEDTIME ONCE A DAY 03/21 completed Not Available Not Available Not Available diclofenac 1 % topical gel APPLY 2 GRAMS TO THE AFFECTED AREA(S) BY TOPICAL ROUTE 4 TIMES PER DAY 03/16 completed Not Available Not Available Not Available butalbital- acetaminoph en-caffeine 50 mg-300 mg-40 mg capsule TAKE 1-2 CAPSULES BY MOUTH EVERY 4 HOURS NEEDED FOR HEADACHE 03/16 completed Not Available Not Available Not Available dexmethylph enidate ER 40 mg capsule,ext ended release [id number] 06/05 completed Not Available Not Available Not Available Cara 30 mg tablet 01/12 completed Not Available Not Available Not Available lurasidone 20 mg tablet TAKE 1 TABLET BY MOUTH IN THE EVENING WITH FOOD FOR 1 WEEK THEN 2 TABLETS ONCE A DAY 01/12 completed Not Available Not Available Not Available Ubrelvy 100 mg tablet TAKE 1 TABLET BY MOUTH EVERY DAY NEEDED FOR MIGRAINE active Not Available Not Available No t Available Qulipta 60 mg tablet Take by oral route for 30 days. active Not Available Not Available No t Available EnilloRing 0.12 mg-0.015 mg/24 hr vaginal ring USE ONE RING PER VAGINA MONTHLY DIRECTED active Not Available Not Available No t Available Vitals Date Recorded Body height Body mass index (BMI) Body weight Body temperature Heart rate Respiratory rate Oxygen saturation Oxygen saturation in Arterial blood by Pulse oximetry Systolic blood pressure Diastolic blood pressure Provider Name and Address Organization Details Last Updated DateTime 4 160.02 cm 42.7 kg/m2 017280. 76 g 96.7 [degF] 85 /min 20 /min 97 % 97 % 140 mm[Hg] 76 mm[Hg] Wilma Richards RN [facility] [employer] [facility] 4 09:54:48 Date Recorded Body height Body mass index (BMI) Body weight Body temperature Heart rate Respiratory rate Oxygen saturation Oxygen saturation in Arterial blood by Pulse oximetry Systolic blood pressure Diastolic blood pressure Provider Name and Address Organization Details Last Updated DateTime 4 160.02 cm 39.7 kg/m2 052851. 39 g 97.7 [degF] 72 /min 20 /min 97 % 97 % 130 mm[Hg] 82 mm[Hg] Wilma Richards RN [facility] [employer] [facility] 4 14:08:00 Date Recorded Body height Body mass index (BMI) Body weight Body temperature Heart rate Respiratory rate Oxygen saturation Oxygen saturation in Arterial blood by Pulse oximetry Systolic blood pressure Diastolic blood pressure Provider Name and Address Organization Details Last Updated DateTime 4 160.02 cm 39.9 kg/m2 631035. 63 g 98.6 [degF] 70 /min 24 /min 98 % 98 % 132 mm[Hg] 78 mm[Hg] Mayco Forrest [place] [facility] [employer] 4 14:38:27 Date Recorded Body height Body mass index (BMI) Body weight Body temperature Heart rate Respiratory rate Oxygen saturation Oxygen saturation in Arterial blood by Pulse oximetry Systolic blood pressure Diastolic blood pressure Provider Name and Address Organization Details Last Updated DateTime 4 160.02 cm 40.6 kg/m2 185582. 75 g 97.3 [degF] 89 /min 20 /min 96 % 96 % 150 mm[Hg] 84 mm[Hg] Wilma Richards RN [facility] [employer] 4 15:30:09 Date Recorded Body height Body mass index (BMI) Body weight Body temperature Heart rate Respiratory rate Oxygen saturation Oxygen saturation in Arterial blood by Pulse oximetry Systolic blood pressure Diastolic blood pressure Provider Name and Address Organization Details Last Updated DateTime 5 160.02 cm 40.4 kg/m2 380353. 11 g 97.2 [degF] 72 /min 20 /min 97 % 97 % 136 mm[Hg] 90 mm[Hg] Wilma Richards RN [facility] [employer] 5 11:19:08 Social History Question Answer Notes LastModified by Organizat ion Details LastModified Time Tobacco Smoking Status Former Smoker Wilma Richards RN [place], [place] [facility] [employer] 03/16/2024 14:10:23 Do You Have An Advance Directive? No Information not available 01/13/2024 What Is Your Level Of Alcohol Consumption? None Information not available 03/05/2023 Is Blood Transfusion Acceptable In An Emergency? Yes Information not available 01/13/2024 What Is Your Level Of Caffeine Consumption? Occasional Coffee Information not available 01/13/2024 What Is Your Code Status? Full Code Information not available 01/13/2024 In The 14 Days Before Symptom Onset, Have You Had Close Contact With A Laboratory-confir [facility] COVID-19 While That Case Was Ill? No Information not available 01/13/2024 In The 14 Days Before Symptom Onset, Have You Had Close Contact With A Person Who Is Under Investigation For COVID-19 While That Person Was Ill? No Information not available 01/13/2024 Are You Currently Employed? Yes Information not available 07/27/2024 What Type Of Diet Are You Following? REGULAR Information not available 01/13/2024 Which Illicit Or Recreational Drugs Have You Used? Mj Information not available 01/13/2024 Do You Or Have You Ever Used E-cigarettes Or Vape? Current User Of Electronic Cigarettes Information not available 03/16/2024 What Is Your Occupation? [employer] Information not available 07/27/2024 Have There Been Any Changes To Your Family Or Social Situation? Yes New Baby Information no t available 03/16/2024 Are There Any Guns Present In Your Home? No Information not available 01/13/2024 How Many Years Have You Used Illicit Or Recreational Drugs? 8 Information not available 03/16/2024 Do You Use Insect Repellent Routinely? No Information not available 01/13/2024 Where Do You Live? Trailer Information not available 01/13/2024 Do You Have A Medical Power Of Aquatic Performer? No Information not available 01/13/2024 How Many Children Do You Have? 1 Information not available 03/16/2024 Do You Have Any Pets? Yes Information not available 01/13/2024 What Is Your Relationship Status? Single Engaged Information not available 03/16/2024 Do You Use Your Seat Belt Or Car Seat Routinely? Yes Information not available 01/13/2024 Do You Have Smoke And Carbon Monoxide Detectors In Your Home? Yes Information not available 01/13/2024 At What Age Did You Start Smoking Tobacco? 12 Information not available 03/16/2024 Are You Passively Exposed To Smoke? Yes Information no t available 01/13/2024 Do You Or Have You Ever Used Smokeless Tobacco? Never Used Smokeless Tobacco Information not available 03/16/2024 Are There Any Smokers In Your House? No Information not available 01/13/2024 How Much Tobacco Do You Smoke? No Information not available 03/16/2024 Do You Participate In Social Media? Yes Information not available 01/13/2024 Do You Feel Stressed (tense, Restless, Nervous, Or Anxious, Or Unable To Sleep At Night)? [id number] Information not available 03/16/2024 Do You Use Any Illicit Or Recreational Drugs? Yes Information not available 01/13/2024 Do You Use Sunscreen Routinely? No Information not available 01/13/2024 How Many Years Have You Smoked Tobacco? 6 Information not available 03/05/2023 Have You Recently Traveled Abroad? No Information not available 01/13/2024 Have You Used IV Drugs? No Information not available 03/16/2024 Do You Or Have You Ever Used Any Other Forms Of Tobacco Or Nicotine? Yes Information not available 03/16/2024 Sex: Unknown Functional Status Question Answer Note LastModified by Organization D etails LastModified Time What is your exercise level? None Information not available 01/13/2024 Mental Status None recorded. Family History Relationship Description Onset Age of this Age Resolved Age Notes LastModified by Organization Details LastModified Time Paternal Aunt Family history of malignant neoplasm Not available 2022 10:22:47 Paternal Aunt Diabetes mellitus Not available 2022 10:23:06 Maternal Uncle Family history of malignant neoplasm Not available 2022 10:22:47 Paternal Grandfather Family history of malignant neoplasm Not available 2022 10:22:47 Mother Diabetes mellitus Not available 2022 10:23:06 Medical History Condition Response HEADACHES/MIGRAINES Y ANXIETY DISORDER Y DEPRESSION (INCLUDING POST ) Y HYPERTENSION Y Gynecological History Statement/Question Response Date of Last Colonoscopy Flow Moderate Most Recent Bone Density Date of LMP 03/16/2024 Frequency of Cycle (Q days) Duration of Flow (days) 4 Date of Last Pap Smear Current Control Method IUD Age at Menarche 12 Most Recent Mammogram Obstetrics History GPAL:G 0 P 1 0 0 1 Type Value Full Term 1 Living 1 Immunizations Vaccine Type Date Status Note Provider Nam e and Address Organization Details Recorded Time meningococcal MCV4P 5 completed Not Available [facility] 05/30/2023 15:35:49 Past Encounters Encounter ID Performer Location Encounter Start Date Encounter Closed Date Diagnosis/Indication Diagnosis SNOMED-CT Code Diagnosis ICD10 Code Diagnosis Note [id number] [facility] [place] [address], [place] [address] 03/21/2022 00:00:00 03/21/2022 20:49:53 [id number] [facility] [place] [address] [address] 05/22/2022 00:00:00 05/22/2022 18:59:14 [id number] [facility] [place] [address] [place] [address] 06/20/2022 00:00:00 06/20/2022 13:33:29 [id number] [facility] [place] [address] [place] [address] 07/15/2022 00:00:00 07/16/2022 08:36:46 [id number] [facility] [place] [address] [place] [address] 08/07/2022 00:00:00 08/08/2022 05:52:52 [id number] [facility] [place] [address] [place] [address] 09/20/2022 00:00:00 09/20/2022 17:19:30 [id number] Karina Dey MD [facility] [place] [address] [place] [address] 12/19/2022 16:00:25 12/19/2022 16:39:59 Morbid obesity 509533970 E66.01 Continue weight loss efforts. Exercise regularly Anxiety 45523174 F41.9 Continue alprazolam [id number] Han Ambrosio MD [facility] [place] [address] [place] [address] 03/05/2023 10:05:47 03/05/2023 11:02:14 Pain of left knee joint 0450174641 64270 M25.562 [id number] Han Ambrosio MD [facility] [place] [address] [place] [address] 03/26/2023 10:17:28 03/26/2023 10:56:03 Injury of right knee 2603808536 3806131 M25.562 [id number] Lori Adorno NP [facility] [place] [address] [place] [address] 04/23/2023 10:57:42 04/23/2023 11:22:27 Pain of left knee joint 6679015558 67991 M25.562 Closed fra cture of tibial plateau 438480681 S82.102D [id number] Nieves Colón [address] [address] 01/13/2024 09:41:57 01/13/2024 10:37:12 Paronychia of toe of right foot 9472866141 2229598 L03.031 Carpal any nima syndrome of right wrist 6023555984 27581 G56.01 [id number] MILLI Nelson [address] [address] 03/16/2024 13:55:45 03/16/2024 15:10:06 [facility] [id number] J40 management 278 358088 Z39.1 Advised to avoid expressing , utilize cold packs, and continue with control as prescribed Plantar wa rt of right foot [id number] 6572137 B07.0 Cryosurger y completed in office [id number] Lio Mazariegos MD [address] [place] [address] 05/31/2024 14:18:50 05/31/2024 15:07:11 Pain in right hip joint 4122875687 83232 M25.551 Sprain of right hip 1178 545312 1259143 S73.101A Obesity 089408351 E66.9 [id number] MILLI Nelson [facility] [address] 07/27/2024 15:06:54 07/27/2024 16:30:08 Anxiety 20548981 F41.9 Has tried numerous medication s, patient states none helpAdvise d to see psych Abscess of skin and/or subcutaneous tissue 93428670 L02.91 Left eyelid Low back pain 655709288 M54.50 Advised to continue cyclobenza negin as neededAdvi sed to stretch at home, pt declines PTAdvised ice and heat [id number] MILLI Nelson [facility] [address] 09/24/2024 10:50:03 09/24/2024 11:58:32 Dizziness 310713512 R42 Worse with position changes Amenorrhea 26639984 N91. 2 states period is 10 days late, is using control Health Concerns Section Related Observation LastModified by Organization Detai ls LastModified Time None Recorded Concern Status LastModified by Organization Details LastModified Time None Recorded Advance Directives Directive N: Payers Encounter Date Sequence Insurance Name Policy Number Policy Chong Covered Member ID Chong Member ID Guarantor Name 01/13/[address] [facility] ON OR AFTER 03/01/21 (MEDICAID REPLACEMENT - HMO) Eileen López [id number] Helene López 03/16/[address] [facility] ON OR AFTER 03/01/21 (MEDICAID REPLACEMENT - HMO) Eileen López [id number] Helene López 05/31/[address] [facility] ON OR AFTER 03/01/21 (MEDICAID REPLACEMENT - HMO) Eileen López [id number] Helene Maribel 07/27/[address] [facility] ON OR AFTER 03/01/21 (MEDICAID REPLACEMENT - HMO) Eileen López [id number] Helene López 09/24/2024 1 [facility] ON OR AFTER 21 (MEDICAID REPLACEMENT - HMO) Eileen López [id number] Helene López Notes Date Note Type Note Provider Name and Address Organization Details Recorded Time 01/13/2024 text/html Eileen López is a 23 year old female patient here today for multiple complaints. She is currently 36 weeks . She is having related carpal tunnel in the right hand per her OBGYN. She has concerns that this more severe due to the extent of her symptoms. She has numbess and weakness in the medial aspect of the right hand had that will occasionally last all day. Some days are worse than others. She has a paronychia on the medial right great toe. This does not hurt but has been bleeding on and off for a few months. MILLI Nelson [address], [place], [address], [employer] 01/13/2024 10:32:30 03/16/2024 text/html Eileen López is a 24 year old female patient here today to establish care. She is 1 month post . 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 She has started prozac. She has a growth on her right great toe, we previously though this was a paronychia due to bleeding. It has stopped bleeding and solidified. It is now sensitive. Appears to be plantar wart She had some related carpal tunnel. It has resolved slightly since she has had the baby. She still has some wrist pain and occasionally popping in her left hand. She has not started cock-up splints. She has concerns with breast milk production. States she has never expressed or nurse but still some production if she attempts to express. Advised this will pass with time and oral contraceptive. She is starting control this month. She has had cough for 1 week, she states her chest is tight and productive MILLI Nelson [address], [place], [address], [employer] 03/16/2024 14:54:26 05/31/2024 text/html ACV: C/o Rt hip area pain since yesterday 8 pm. Since today morning, its moving down to her whole Rt LE. Pt did some moving of her stuff in her living room yesterday morning and afternoon. Denies any fall/trauma. Denies any chance of . No other area pain, no low back pain, no incontinence. Denies any workman's comp. Lio Mazariegos MD [address], [place], [address], [address]x200 [facility] [employer] 05/31/2024 14:59:35 07/27/2024 text/html Eileen López is a 24 year old female patient here today for eye complaints and anxiety Eileen states she has unmanageable anxiety and cannot leave her house without marijuanaHas taken: prozac, quetiapine, diazepam, hydroxyzine, buspar, lexapro, sertraline, lurasidone, lamotrigine, Focalin, fluoxetine, clonidine, ariprazole, alprazolamStates that the only thing that works for her is alprazolam.Is seeing a therapist, not currently psychiatristStates dx of BPD She has had a small bump on her left upper eyelid near eyebrow for 1 week, slight errythema Concerns with lumbar spine pain, pt states she has degenerative disc disease, no evidence of this in imaging. MILLI Nelson [address], [place], [address], [address] [facility] [employer] 07/27/2024 16:24:59 09/24/2024 text/html Eileen López is a 24 year old female patient here today for multiple concerns States her period is 10 days late. She is using the EnilloRing. She has concerns with dizziness when she stands up. She states this is not uncommon for her but is getting worse and she has experienced near syncope the last few days.States history of iron deficiency MILLI Nelson [address], [place], [address], [facility] [employer] 09/24/2024 11:57:01 OBGyn Episode No OBEpisode recorded.
--- NOTE | 2024-09-26 16:05 | ED_ITS ---
HPI - Extremity Problem General Chief complaint: Extremity Problem,Nontraumatic Stated complaint: R foot pain denies injury Time Seen by Provider: 09/26/24 15:57 History of Present Illness HPI Narrative: Patient started having pain to her R foot; denies any recent injury, she is a new parent. Hasn't taken any pain meds yet. Related Data Home Medications ?Medication ?Instructions ?Recorded ?Confirmed ?Last Taken ?Type labetalol 100 mg tablet 100 mg PO Q12H 11/05/23 02/04/24 11/05/23 09:00 History vitamin-ferrous fumarate 1 tablet PO DAILY 11/05/23 02/04/24 02/03/24 History 28 mg iron-folic acid 800 mcg tablet ( Vitamins with Minerals) Allergies Allergy/AdvReac Type Severity Reaction Status Date / Time clonazepam Allergy Intermediate Other Verified 09/26/24 14:52 latex Allergy Other Verified 09/26/24 14:52 lemon Allergy Hives Verified 09/26/24 14:52 buspirone AdvReac Unknown Nausea and Verified 09/26/24 14:52 Vomiting escitalopram (From Lexapro) AdvReac Migraine Verified 09/26/24 14:52 red dye AdvReac Vomiting Verified 09/26/24 14:52 Review of Systems Review of Systems: All systems reviewed & are unremarkable except as noted in HPI and below PMFSH Past Medical History Medical History ADHD Anxiety and depression Asthma History of borderline personality disorder PIH ( induced hypertension) Surgical History Surgical History History of adenoidectomy History of tonsillectomy S/p bilateral myringotomy with tube placement As child Family History Family History Mother Diabetes mellitus Father Bipolar 1 disorder Other Cancer Social History Social History Smoking status: Current every day smoker Tobacco type: e-cigarettes/vaping Second hand tobacco smoke exposure: Yes Additional smoking assessment comments: No vaping for 2 months Substance use: never Do You Feel Safe in your Home?: Yes Lack of Transportation: No Lack of Food: Never True Current Housing: I Have Housing Concerned About Future Housing: No Difficulty Paying Gas/Electric Bills: No Difficulty Paying for Meds: No Currently Unemployed: No Education: High School Diploma/GED Difficulty w/ Childcare or Family Care: No Gender identity (if verbalized by the patient): Female Sexual Orientation (if Verbalized by the Patient): Straight or Heterosexual Spiritual care concerns: No Exam Narrative: EXAMINATION OF ORGAN SYSTEMS/BODY AREAS: Constitutional: Vital signs per nursing GENERAL:[No acute distress, non-toxic appearing.] HEAD: Normal with no signs of head trauma. EYES: EOMI, conjunctiva normal ENT: Hearing grossly intact LUNGS: Nonlabored breathing. HEART: [Regular rate and rhythm], normal pulses ABD: [Soft], [nontender to palpation] EXT: Normal range of motion, tenderness to bottom of right foot SKIN: [No rashes or lesions.] NEURO: [Alert and oriented x 3. No gross focal sensory or strength deficits.] PSYCH: Normal affect Course Vital Signs Vital signs: Vital Signs Temperature 97.7 F 09/26/24 14:53 Pulse Rate 79 09/26/24 14:53 Respiratory Rate 16 09/26/24 14:53 Blood Pressure 140/66 09/26/24 14:53 Pulse Oximetry 98 09/26/24 14:53 Oxygen Delivery Room Air 09/26/24 14:53 Temperature 97.7 F 09/26/24 16:10 Pulse Rate 86 09/26/24 16:10 Respiratory Rate 16 09/26/24 16:10 Blood Pressure 109/60 09/26/24 16:10 Pulse Oximetry 99 09/26/24 16:10 Oxygen Delivery Room Air 09/26/24 14:53 MDM - Extremity (Nontraumatic) MDM Narrative Medical decision making narrative: 24F with right foot pain, signs symptoms consistent with plantar fasciitis. I offered steroids which she declined, she is agreeable to and NSAID course and follow-up to Podiatry. Stable for discharge with return precautions. Discharge Plan Discharge Clinical Impression: Acute pain of right foot Patient Disposition: Home, Self-Care Condition: Stable Instructions: Plantar Fasciitis (ED) Additional Instructions: You can follow-up with the Foot and Ankle doctor, and come back to the ER for any further issues. Patient Language: Greenlandic Prescriptions: New ibuprofen 600 mg tablet 600 mg PO TID PRN (Reason: fever or pain) Qty: 30 0RF No Action vit-iron fum-folic ac [ Vitamin with Minerals] 28 mg iron- 800 mcg Tablet 1 tablet PO DAILY labetalol 100 mg Tablet 100 mg PO Q12H ibuprofen 600 mg tablet 600 mg PO Q6H PRN (Reason: cramps) Qty: 30 0RF [id number] [Fioricet] 50-300-40 mg capsule 1 - 2 cap PO Q4H PRN (Reason: headache) Qty: 30 0RF Follow-up/Referrals: Garrison Hdez Jr., ORIANAM [Physician] - 2 Days Eldon,Nieves Jeff APRN [Primary Care Provider] - Stand Alone Forms: Work/School Release IP
--- OUTSIDE RECORDS SUMMARY | 2024-09-26 16:06 | XMS_ITS | Clinical Summary ---
Author Organization [facility] Address [address] [place] [address]. [place], [place] [address] [place] [address] Care Team Providers Care Bail Attacher Name Role Phone Karina Warren MD Primary Care Provider [phone] Allergies Active Allergy Reactions Criticality Noted Date [...] patient's age to complete this topic Insurance [place] [address] Care Teams Bail Attacher Relationship Specialty Start Date End Date Karina Warren MD [address] [place] [address] PCP - General FAMILY PRACTICE 04/03/22
--- OUTSIDE RECORDS SUMMARY | 2024-09-26 16:06 | XMS_ITS | Clinical Summary ---
Author Organization [facility] Address [address] [place] [address] Care Team Providers Care Stockroom Keeper Name Role Phone Karina Dey MD Primary Care Provider [phone] Allergies Active Allergy Reactions Criticality Noted Date [...] on file Legal Sex Female 11:01 AM DIRECTOR OF DIGITAL PLATFORMS Gender Identity Not on file Sexual Orientation Not on file Obstetrics History Last Filed Vital Signs Vital Sign Reading Time Taken Comments Blood Pressure 120/77 08/02/2021 11:28 AM DIRECTOR OF DIGITAL PLATFORMS Pulse 80 08/02/2021 11:28 AM DIRECTOR OF DIGITAL PLATFORMS Temperature 36.7 ??C (98.1 ??F) 08/02/2021 11:[address] Respiratory Rate 16 08/02/2021 11:28 AM DIRECTOR OF DIGITAL PLATFORMS Oxygen Saturation 97% 08/02/2021 11:28 AM DIRECTOR OF DIGITAL PLATFORMS Inhaled Oxygen Concentration - - Weight 105.2 kg (232 lb) 08/02/2021 11:28 AM DIRECTOR OF DIGITAL PLATFORMS Height 160 cm (5' 3 ) 08/02/2021 11:28 AM DIRECTOR OF DIGITAL PLATFORMS Body Mass Index 41.1 08/02/2021 11:28 AM DIRECTOR OF DIGITAL PLATFORMS Plan of Treatment Health Maintenance Due Date [...] 02/14/2009 Varicella Vaccines Completed 06/06/2017, 03/13/[address] [place] [place] [address] Care Teams Stockroom Keeper Relationship Specialty Start Date End Date Karina Dey MD [facility] [place] [address] PCP - General Family Medicine 03/14/22
--- OUTSIDE RECORDS SUMMARY | 2024-09-26 16:06 | XMS_ITS | Continuity of Care Document ---
Author Organization [facility] Address [address] [place] [address] [address] [place] [address] Phone Care Team Providers Care Insulation Board Back Tender Name Role Phone Lujan OD, Titus Unavailable Unavailable Procedures Procedure Date Eye Exam, New Patient Advance Directives Directive Yes / No Effective Date File Name No Information Encounters Encounter Description Practice Location Reason(s) For Visit Diagnoses Date Provider Providers Copied on Encounter [facility], [address], [place], [place], [id number], [place] tel:[phone] [facility] [place] No Information [phone] Lujan OD Titus. [address] [facility] [place] , [address], [place], [address], [place]. tel:[phone] Family History Family Member Type Diagnosis Age At Onset No Information Payers Payer name Insurance type Covered green party ID Authoriza tion(s) Medicaid [facility] [id number] Social History Type Description Quantity Date Captured [...]
--- OUTSIDE RECORDS SUMMARY | 2024-09-26 16:06 | XMS_ITS | Referral Summary ---
Author Organization [facility] Address [address] [place] [address] Care Team Providers Care Communications Consultant Name Role Phone Karina Dey MD Primary Care Provider [phone] Allergies Active Allergy Reactions Criticality Noted Date [...] on file Legal Sex Female 11:01 AM SPINDLE PLUMBER Gender Identity Not on file Sexual Orientation Not on file Last Filed Vital Signs Vital Sign Reading Time Taken Comments Blood Pressure 120/77 08/02/2021 11:28 AM SPINDLE PLUMBER Pulse 80 08/02/2021 11:28 AM SPINDLE PLUMBER Temperature 36.7 ??C (98.1 ??F) 08/02/2021 11:[address] Respiratory Rate 16 08/02/2021 11:28 AM SPINDLE PLUMBER Oxygen Saturation 97% 08/02/2021 11:28 AM SPINDLE PLUMBER Inhaled Oxygen Concentration - - Weight 105.2 kg (232 lb) 08/02/2021 11:28 AM SPINDLE PLUMBER Height 160 cm (5' 3 ) 08/02/2021 11:28 AM SPINDLE PLUMBER Body Mass Index 41.1 08/02/2021 11:28 AM SPINDLE PLUMBER Plan of Treatment Not on file [place] [address] [place] [address] Care Teams Communications Consultant Relationship Specialty Start Date End Date Karina Dey MD [facility] [place] [address] PCP - General Family Medicine 03/14/22
[2024-09-26 16:10] VITALS: BP 109/60; PULSE 86; RESP 16; TEMP 36.5; O2SAT 99
== END 2024-09-26 16:13 | disposition home or self-care (01) ==
PROVIDERS: Emergency Provider Emergency Medicine
DX: M79.671 Pain in right foot (principal); J45.909 Unspecified asthma, uncomplicated; Z87.891 Personal history of nicotine dependence
CPT/HCPCS: 73630; 99283

== ENCOUNTER 2024-12-14 14:26 | Outpatient (CLI) | payer OTHER, SELFPAY ==
--- NOTE | ~2024-12-14 | MR_ITS ---
MRI of the left knee Clinical history: Pain Technique: Coronal proton density and proton density-weighted images, sagittal proton-density and T2 fat-sat images, and axial proton-density fat-saturated images were acquired. Findings: Anterior and posterior cruciate ligaments are intact. Medial collateral ligament and the la teral collateral ligament complex are intact. Popliteus tendon is intact. Medial and lateral menisci are intact, without evidence of tear. Articular cartilage is intact throughout the knee. Bone marrow signals are unremarkable. Extensor mechanism is intact. No significant joint effusion or Burleson's cyst. Impression: No significant abnormality seen. Reviewed, dictated and finalized at location . Impression: No significant abnormality seen.
--- OUTSIDE RECORDS SUMMARY | 2024-12-14 15:37 | XMS_ITS | Data Portability ---
Author Organization [facility] [employer] [facility], Main Office Address [address] [place] [address] Care Team Providers Care Fire Chief'S Aide Name Role Phone TODD SANCHEZ Primary Care Provider TODD SANCHEZ Referring Provider Assessment Encounter Date Assessment Date Assessment LastModified by Organization Details LastModified Time 11/24/2024 11/24/2024 24-year-old female presents for follow-up of her left knee. She had a nondisplaced tibial plateau fracture about 2 years ago which we treated conservatively. She was doing well for a while, but then reports having pain, catching, and popping in her knee. She also found out she was during that time she had the tibial plateau injury and thinks that may have had something to do with that as well. she has not had the treatments besides taking urmm-cbv-icmsly r ibuprofen frequently. She has tenderness palpation of the medial joint line. Range of motion 0-130, pain at terminal extension terminal flexion. Positive Diana's. 1A Isarel, stable posterior drawer, stable varus and valgus stress. She has meniscal symptoms after a nondisplaced tibial plateau fracture treated non operatively. Given the association of tibial plateau fractures with meniscus tears, I would like to obtain MRI to evaluate the meniscus. In the meantime, we will make her light duty with sitting and standing work only, avoid heavy lifting. She works at [employer]. We will see her back after the scan. She is in agreement with the plan. [email or web address] Not available 11/24/2024 09:45:44 Plan of Treatment Reminders Order Date Submit Date Provider Last Modified By Organization Details Last Modified Time Details Appointments None recorded. Lab test, urine 2024 025 [facility] [address] [facility], [place], [address], 5 16:39:45 test, urine 2024 025 [facility], [address] [facility], [place], [address], 5 12:42:05 CBC w/ auto diff 2024 025 [facility] (Lab), [address] [place], [address], 5 11:23:43 iron + total iron-walter ng capacity (TIBC), serum 2024 025 [facility] (Lab), [address] [place], [address], 5 11:23:43 TSH, serum or plasma 2024 025 [facility] (Lab), [address] [place], [address], 5 11:23:43 vitamin B12, serum 2024 025 [facility] (Lab), [address] [place], [address], 5 11:23:43 vitamin D3, 25-hydroxy , serum 2024 025 [facility] (Lab), [address] [place], [address], 5 11:23:[address] referral - Please call patient to schedule an appointmen t. Thank you 2023 024 [email or web address], [address] [place] [address] Dr, [place], [address], 08:57:00 Procedures None recorded. Surgeries None recorded. Imaging XR, knee, 3 view 2024 025 [email or web address] [facility] [place], [address], [place], [address], 5 11:53:14 MRI, knee, w/o contrast - Please contact pt to schedule apt for L knee. please give patient a disc of images, thanks 2024 025 [facility], [address], [place], [address], 5 15:00:56 XR, hip, unilateral 2023 024 56 [facility], [facility] , [place], [address], 4 08:57:39 Medication Orders ondansetro n 4 mg disintegra ting tablet 2024 025 [facility] #86839, [address], [place], [id number], 5 16:38:00 famotidine 40 mg tablet 2024 025 [facility] #55827, [address], [place], [id number], 5 16:37:59 cetirizine 10 mg tablet 2024 025 [facility] #20918, [address], [place], [id number], 5 16:38:02 diclofenac sodium 75 mg tablet,del ayed release 2023 024 [facility] #09294, [address], [place], [id number], 5 11:15:35 Bactrim DS 800 mg-160 mg tablet 2023 024 [facility] #61608, [address] [facility], [place], [place], [id number], 5 11:16:06 escitalopr am 20 mg tablet 2023 024 [email or web address] #83498, [address] [facility], [place], [place], [id number], 5 11:16:00 ketorolac 60 mg/2 mL intramuscu lar solution 2023 024 [email or web address] Not available 4 15:27:37 cyclobenza negin 10 mg tablet [address] [facility] #62461, [address] [facility], [place], [place], [id number], 5 15:51:24 diclofenac sodium 75 mg tablet,del ayed release 2023 024 [facility] #71454, [address] [facility], [place], [place], [id number], 5 11:15:35 Patient TargetsNo targets recorded. Patient Instructions Encounter Date Encounter Id Patient Instructions Last Modified By Organization Details Last Modified Time 07/27/2024 [id number] back stretches: marty kingker Not available 07/27/2024 15:48:59 Reason for Referral Psychiatrist Referral for An xiety Please call patient to schedule an appointment. Thank you Referring Physician: Todd Sanchez, Family Medicine, Encounter Date: 07/27/2024 Results Created Date Observation Date Name Description Value Unit Range Abnormal Flag Note LastModifiedBy Organization Detail LastModifiedTime 09/24/19 25 09/24/2024 pregn claudia test, urine HCG negati ve Not Available [facility] [address] [facility], [place], [address], 09/24/2024 11:32:28 11/17/19 25 11/16/2024 pregn claudia test, urine HCG negati ve Not Available [facility] [address] [facility], [place], [address], 11/16/2024 16:23:56 09/27/19 25 09/26/2024 XR, foot No observ ation record ed. [facility] [address] [facility] [address], [place], [address], 09/28/2024 08:59:26 11/25/19 XR, knee, 3 view No observ ation record ed. [email or web address] [facility] [place] [address] [facility] [address], [place], [address], 11/24/2024 09:24:22 Result Notes None recorded. Problems Name Problem SNOMED Code Status Onset Date Resolution Date Notes Provider Name and Address Organization Details Recorded Time Injury of ankle 018836565 Completed 03/16/2024 MILLI Nelson [address] [facility], [facility] [address], [place], [address] , [facility] 4 14:22:22 Pain in pelvis 06187649 Active Not Available [facility] 3 15:35:49 Diverticu lar disease 378959088 Active 2016 Not Available [facility] 3 15:35:49 Pain in limb 11473664 Active Not Available [facility] 3 15:35:49 Migraine 96759616 Active 2022 Not Available [facility] 3 15:35:49 Nausea and vomiting 64571594 Active 2022 Not Available [facility] 3 15:35:49 Morbid obesity 087004781 Active 2022 Not Available [facility] 3 15:35:49 Anxiety 91804583 Active 2022 Not Available [facility] 3 15:35:49 Labyrinth itis 52289466 Active 2022 Not Available [facility] 3 15:35:49 Injury of right knee 44025045261 203674 Completed 202203/16/2024 MILLI Nelson [address], [place], [address] , Spontaneously 4 14:24:11 Injury of left knee 05902743665 4106 Active 2022 Not Available [facility] 3 15:35:49 Fatigue 64605899 Active 2022 Not Available [facility] 3 15:35:49 Iliotibia l band friction syndrome of left knee 12117225265 9102 Completed 202203/16/2024 MILLI Nelson [address], [address], [place], [address] , Spontaneously 4 14:22:19 Rib pain 256409886 Active 2022 Not Available [facility] 3 15:35:49 Fracture of tibial plateau 383562815 Completed 202203/16/2024 MILLI Nelson [address], [address], [place], [address] , [employer] [facility] 4 14:22:09 Pain of left knee joint 99565312856 4107 Active 2022 Not Available [facility] 3 15:35:49 Closed fracture of tibial plateau 976657094 Active 2022 Not Available [facility] 3 15:35:49 Hyperemes is gravidaru m 71596711 Completed 202203/16/2024 MILLI Nelson [address], [address], [place], [address] , [employer] [facility] 4 14:22:13 Paronychi a of toe of right foot 08155871949 515217 Active 2023 MILLI Nelson [address], [address], [place], [address] , [facility] 4 10:18:38 Carpal tunnel syndrome of right wrist 68340899791 9108 Active 2023 MILLI Nelson [address], [address], [place], [address] , [facility] 4 10:19:21 Bronchiti s 10063857 Active 2023 MILLI Nelson [address], [address], [place], [address] , [facility] 4 14:29:21 Plantar wart of right foot 36159445892 490317 Active 2023 MILLI Nelson [address], [address], [place], [address] , [facility] 4 14:54:06 Pain in right hip joint 55041592173 9102 Active 2023 Lio Mazariegos MD [address], [address], [place], [address] , [facility] 4 14:50:24 Sprain of right hip 21067353191 502101 Active 2023 Lio Mazariegos MD [address], [address], [place], [address] , [facility] 4 14:51:01 Obesity 819516018 Active 2023 Lio Mazariegos MD [address], [place], [address] , [facility] 4 14:57:57 Abscess of skin and/or subcutane ous tissue 34161069 Active 2023 MILLI Nelson [address], [place], [address] , [facility] [employer] [facility] [employer] 4 15:45:00 Low back pain 392117264 Active 2023 MILLI Nelson [address], [place], [address] , [facility] [employer] [facility] [employer] [facility] 4 15:47:46 Dizziness 982099263 Active 2024 MILLI Nelson [address], [place], [address] , [facility] [employer] [facility] [employer] 5 11:30:21 Amenorrhe a 87210109 Active 2024 MILLI Nelson [address], [address], [place], [address] , [employer] [facility] [employer] 5 11:32:23 Vitamin D deficienc y 84139030 Active 2024 MILLI Nelson [address], [address], [place], [address] , [employer] [facility] [employer] 5 15:04:28 Seasonal allergic rhinitis 217640060 Active 2024 MILLI Nelson [address], [address] [facility], [place], [address] , [employer] [facility] [employer] [facility] 5 16:28:36 Nondepend ent cannabis abuse, continuou s 912365038 Active 2024 MILLI Nelson [address], [address], [place], [address] , [facility] [employer] [facility] [employer] [facility] 5 16:37:01 Cannabis hyperemes is syndrome co-occurr ent and due to cannabis dependenc e 46089395962 422381 Active 2024 MILLI Nelson [address], [place], [address] , [facility] [employer] [facility] [employer] 5 16:37:29 Problem Notes None recorded. Procedures Surgical History Date Name Laterality Status Provider Name and Address Organization Details Recorded Time 4 Cryosurgery Warts/Skin Tags completed Todd Sanchez, [employer] [address] [facility], [address], [place], [address], [facility] [employer] [facility] 03/16/2024 14:52:35 Imaging Results Imaging Date Name Status LastModified by Organiz ation Details LastModified Time 09/26/2024 [facility] [address] [facility] [address], [place], [address], 09/28/2024 08:59:26 11/24/2024 XR, knee, 3 view completed [facility] [place] [address] [facility] [address], [place], [address], 11/24/2024 09:24:22 Procedure Notes None recorded. Medical Equipment None Reported. Allergies Allergen ID Allergen Name Allergen Category Reaction Reaction Severity Criticality Documentation Date Start Date Code Code System Note Provider Name and Address Organization Details Recorded Time 76806 Buspar medicatio n nausea vomiting Not available Not available Not available 10/30/2022 04310 0 RxNorm Not Available [facility] 3 07:34:58 26584 clonidine medicatio n Not available Not available Not available 01/13/2024 2599 RxNorm Wilma Richards RN null, [facility] [employer] 4 09:50:27 93252 lorazepam medicatio n Not available Not available Not available 07/27/2024 6470 RxNorm Wilma Richards RN null, [facility] [employer] [facility] 4 15:27:59 Medications Name Sig Start Date Stop Date Status Note LastModified by Organization Details LastModified Time cyclobenzap rine 10 mg tablet TAKE 1 TABLET BY MOUTH EVERY 12 HOURS NEEDED 11/16 completed Not Available Not Available Not Available buspirone 5 mg tablet Take 1 [...] Available Not Available cetirizine 10 mg tablet TAKE 1 TABLET BY MOUTH DAILY active Not Available Not Available No t [...] migraine, repeat in 2 hrs if needed 11/16 completed Not Available Not Available Not Available ondansetron HCl 8 mg tablet Take 1 tablet every 8 hours by oral route prn 03/05 completed Not Available Not Available Not Available meloxicam 15 mg tablet TAKE 1 TABLET BY MOUTH EVERY DAY active Not Available Not Available No t Available metronidazo le 0.75 % (37.5 mg/5 gram) vaginal gel INSERT 1 APPLICATO RFUL INTO VAGINA DAILY AT BEDTIME FOR 5 DAYS 01/12 completed Not Available Not Available Not Available ondansetron HCl 4 mg tablet TAKE 1 TABLET BY MOUTH EVERY 8 HOURS 03/21 completed Not Available Not Available Not Available famotidine 40 mg tablet TAKE 1 TABLET BY MOUTH EVERY DAY AT BEDTIME active Not Available Not Available No t Available rizatriptan 10 mg tablet TAKE 1 [...] TAKE 1 TABLET BY MOUTH AT BEDTIME 11/16 completed Not Available Not Available Not Available nicotine (polacrilex ) 4 mg gum [...] Available Not Available sertraline 25 mg tablet TAKE 1 TABLET BY MOUTH DAILY FOR 7 DAYS 11/16 completed Not Available Not Available Not Available [...] unit) capsule TAKE 1 CAPSULE BY MOUTH 1 TIME EVERY WEEK active Not Available Not Available No t Available ibuprofen 600 mg tablet TAKE 1 TABLET BY MOUTH THREE TIMES DAILY NEEDED FOR FEVER OR PAIN 11/16 completed Not Available Not Available Not Available [...] ondansetron 4 mg disintegrat ing tablet DISSOLVE ONE TABLET ON THE TONGUE EVERY 8 HOURS NEEDED FOR NAUSEA OR VOMITING active Not Available Not Available No t Available fluoxetine 20 mg capsule TAKE 1 CAPSULE BY MOUTH DAILY 03/16 completed Not Available Not Available Not Available sertraline 50 mg tablet TAKE 1 TABLET BY MOUTH DAILY active Not Available Not Available No t [...] Available Tri-Sprinte c (28) 0.18 mg(7)/0.215 mg(7)/0.25 mg(7)-0.035 mg tablet TK 1 T PO QD 03/21 [...] enidate ER 40 mg capsule,ext ended release [id number] 50 06/05 completed Not Available Not Available Not Available Cara 30 mg tablet 01/12 completed Not Available Not Available Not Available lurasidone 20 mg tablet TAKE 1 TABLET BY MOUTH IN THE EVENING WITH FOOD FOR 1 WEEK THEN 2 TABLETS ONCE A DAY 01/12 completed Not Available Not Available Not Available Ubrelvy 100 mg tablet Take 1 tablet every day by oral route as needed for 30 days. 11/16 completed Not Available Not Available Not Available Qulipta 60 mg tablet TAKE 1 TABLET BY MOUTH EVERY DAY DIRECTED active Not Available Not Available No [...] Updated DateTime 4 160.02 cm 39.9 kg/m2 149686. 63 g 98.6 [degF] 70 /min 24 /min 98 % 98 % 132 mm[Hg] 78 mm[Hg] [facility] 4 14:38:27 Date Recorded Body height Body mass index (BMI) Body weight Body temperature Heart rate Respiratory rate Oxygen saturation Oxygen saturation in Arterial blood by Pulse oximetry Pain severity - 0-10 verbal numeric rating [Score] - Reported Systolic blood pressure Diastolic blood pressure Provider Name and Address Organization Details Last Updated DateTime 4 160.02 cm 40.6 kg/m2 466494. 75 g 97.3 [degF] 89 /min 20 /min 96 % 96 % 0 150 mm[Hg] 84 mm[Hg] Wilma Richards RN [facility] [employer] [facility] 4 15:30:09 Date Recorded Body height Body mass index (BMI) Body weight Body temperature Heart rate Respiratory rate Oxygen saturation Oxygen saturation in Arterial blood by Pulse oximetry Pain severity - 0-10 verbal numeric rating [Score] - Reported Systolic blood pressure Diastolic blood pressure Provider Name and Address Organization Details Last Updated DateTime 5 160.02 cm 40.4 kg/m2 241945. 11 g 97.2 [degF] 72 /min 20 /min 97 % 97 % 2 136 mm[Hg] 90 mm[Hg] Wilma Richards RN [facility] [employer] [facility] 5 11:19:08 Date Recorded Body height Body mass index (BMI) Body weight Body temperature Heart rate Respiratory rate Oxygen saturation Oxygen saturation in Arterial blood by Pulse oximetry Pain severity - 0-10 verbal numeric rating [Score] - Reported Systolic blood pressure Diastolic blood pressure Provider Name and Address Organization Details Last Updated DateTime 5 160.02 cm 38.1 kg/m2 94154.7 6 g 97.2 [degF] 73 /min 20 /min 97 % 97 % 0 128 mm[Hg] 82 mm[Hg] Wilma Richards RN [facility] [employer] [facility] 5 15:53:54 Date Recorded Body height Body mass index (BMI) Body weight Pain severity - 0-10 verbal numeric rating [Score] - Reported Provider Name and Address Organization Details Last Updated DateTime 11/24/2024 160.02 cm 38.1 kg/m2 44895.36 g 6 IMANI Jensen [facility] [employer] [facility] 11/24/2024 09:23:21 Social History Question Answer Notes LastModified by Organizat ion Details LastModified Time Tobacco Smoking Status Former Smoker Wilma Richards RN [facility], [facility] [employer] [facility] 03/16/2024 14:10:23 Do You Have An Advance [...] You Had Close Contact With A Laboratory-confir med COVID-19 While That Case Was Ill? No [...] Do You Have A Medical Power Of Online Marketer? No Information not available 01/13/2024 What Was The Date Of Your Most Recent Tobacco Screening? 11/24/2024 [email or web address] Information not available 11/24/2024 How Many Children Do You Have? 1 [...] available 03/16/2024 Do You Participate In Social Meridium? Yes Information not available 01/13/2024 Do You Feel Stressed (tense, Restless, Nervous, Or Anxious, Or Unable To Sleep At Night)? [id number] Information not available 03/16/2024 Do You Use [...] 10:23:06 Medical History Condition Response HEADACHES/MIGRAINES Y OTHER # 1 ANXIETY DISORDER Y DEPRESSION (INCLUDING POST ) Y HYPERTENSION Y Gynecological History Statement/Question Response Flow Moderate Date of LMP 11/16/2024 Duration of Flow (days) 4 Current Control Method IUD Age at Menarche 12 Most Recent Mammogram Date of Last Colonoscopy Frequency of Cycle (Q days) Most Recent Bone Density Sexually Active? Y Date of Last Pap Smear Obstetrics History GPAL:G 0 P 1 0 0 1 Type Value Full Term 1 Living 1 Immunizations Vaccine Type Date Status Note Provider Nam e and Address Organization Details Recorded Time meningococcal MCV4P 5 completed Not Available [facility] 05/30/2023 15:35:49 Past Encounters Encounter ID Performer Location Encounter Start Date Encounter Closed Date Diagnosis/Indication Diagnosis SNOMED-CT Code Diagnosis ICD10 Code Diagnosis Note [id number] [facility] [place] [address] 03/21/2022 00:00:00 03/21/2022 20:49:53 [id number] [facility] [place] [address] 05/22/2022 00:00:00 05/22/2022 18:59:14 [id number] [facility] [place] [address] 06/20/2022 00:00:00 06/20/2022 13:33:29 [id number] [facility] [place] [address] 07/15/2022 00:00:00 07/16/2022 08:36:46 [id number] [facility] [place] [address] 08/07/2022 00:00:00 08/08/2022 05:52:[id number] [place] [address] 09/20/2022 00:00:00 09/20/2022 17:19:30 [id number] Karina Dey MD [address] [place] [address] 12/19/2022 16:00:25 12/19/2022 16:39:59 Morbid obesity 226462045 E66.01 Continue weight loss efforts. Exercise regularly Anxiety 34299564 F41.9 Continue alprazolam [id number] Han Ambrosio MD [facility] [place] [address] [place] [address] 03/05/2023 10:05:47 03/05/2023 11:02:14 Pain of left knee joint 3440302164 74528 M25.562 [id number] Han Ambrosio MD [facility] [place] [address] [place] [address] 03/26/2023 10:17:28 03/26/2023 10:56:03 Injury of right knee 0404342359 9959659 M25.562 [id number] Lori Adorno NP [facility] [place] [address] [place] [address] 04/23/2023 10:57:42 04/23/2023 11:22:27 Pain of left knee joint 3872587039 67073 M25.562 Closed fra cture of tibial plateau 109825891 S82.102D [id number] MILLI Nelson [address] [address] 01/13/2024 09:41:57 01/13/2024 10:37:12 Paronychia of toe of right foot 4703625547 4560530 L03.031 Carpal any nima syndrome of right wrist 8652158882 83983 G56.01 [id number] MILLI Nelson [address] [address] 03/16/2024 13:55:45 03/16/2024 15:10:06 Bronchitis 09850982 J40 management 278 334899 Z39.1 Advised to avoid expressing , utilize cold packs, and continue with control as prescribed Plantar wa rt of right foot 9421885399 1524367 B07.0 Cryosurger y completed in office [id number] Lio Mazariegos MD [address] [address] 05/31/2024 14:18:50 05/31/2024 15:07:11 Pain in right hip joint 0650569846 45798 M25.551 Sprain of right hip 1178 670951 8616530 S73.101A Obesity 774789367 E66.9 [id number] MILLI Nelson [address] [address] 07/27/2024 15:06:54 07/27/2024 16:30:08 Anxiety 91236949 F41.9 Has tried numerous medication s, patient states none helpAdvise d to see psych Abscess of skin and/or subcutaneous tissue 04593200 L02.91 Left eyelid Low back pain 945348042 M54.50 Advised to continue cyclobenza negin as neededAdvi sed to stretch at home, pt declines PTAdvised ice and heat [id number] MILLI Nelson [address] [address] 09/24/2024 10:50:03 09/24/2024 11:58:32 Dizziness 027257165 R42 Worse with position changes Amenorrhea 99026644 N91. 2 states period is 10 days late, is using control [id number] MILLI Nelson [address] [address] 11/16/2024 15:32:01 11/16/2024 16:41:26 Nausea and vomiting 75970301 R11.2 nausea and vomiting every morning x2 weeks. Seasonal a llergic rhinitis 741213789 J30.2 pt complains of excess nasal drainage and vomiting mucous in the morning Cannabis h yperemesis syndrome co-occurrent and due to cannabis dependence 3304699885 9766412 F12.288 Using DAB pen, advised to stop [id number] Han Ambrosio MD [facility] [place] [address] [place] [address] 11/24/2024 09:12:20 11/24/2024 09:45:07 Pain of left knee joint 0392813587 27192 M25.562 Injury of left knee 4592 104894 32077 S89.92XA Health Concerns Section Related Observation LastModified by Organization Detai ls LastModified Time None Recorded Concern Status LastModified by Organization Details LastModified Time None Recorded Advance Directives Directive N: Payers Encounter Date Sequence Insurance Name Policy Number Policy Chong Covered Member ID Chong Member ID Guarantor Name 05/31/2024 1 [facility] ON OR AFTER 03/01/21 (MEDICAID REPLACEMENT - HMO) Eileen López [id number] Eileen López 07/27/2024 1 [facility] ON OR AFTER 03/01/21 (MEDICAID REPLACEMENT - HMO) Eileen López [id number] Eileen López 09/24/2024 1 [facility] ON OR AFTER 03/01/21 (MEDICAID REPLACEMENT - HMO) Eileen López [id number] Eileen López 11/16/2024 1 [facility] ON OR AFTER 03/01/21 (MEDICAID REPLACEMENT - HMO) Eileen López [id number] Eileen López 11/24/2024 1 [facility] ON OR AFTER 03/01/21 (MEDICAID REPLACEMENT - HMO) Eileen López [id number] Eileen López Notes Date Note Type Note Provider Name and Address Organization Details Recorded Time 05/31/2024 text/html ACV: C/o Rt hip area [...] any workman's comp. Lio Mazariegos MD [address], [place], [address], [employer] [facility] [employer] 05/31/2024 14:59:35 07/27/2024 text/html Eileen López is [...] of this in imaging. MILLI Nelson [address] [facility] [address], [place], [address], [employer] [facility] [employer] 07/27/2024 16:24:59 09/24/2024 text/html Eileen López is [...] history of iron deficiency MILLI Nelson [address], [place], [address], [facility] [employer] [facility] [employer] 09/24/2024 11:57:01 11/16/2024 text/html 24year old femal e here with n/v, loss of appetite for two weeks. Wants to puke when she smells food or thinks of food. Is nauseous after she eats as well. Has to smoke weed before she can eat. Dry heaves/vomits/hacks every morning for the first hour she is awake. Vomits white/clear foamy liquid that tastes like stomach acid. Sometimes vomits large amount of mucus. Also feels gassy. Smokes marijuana every day. If she is not high, her appetite is not good.She has been smoking since she was 17 y/o.Admits that she recently starting using a CBD Dab pen and she believes the nausea started around the same time Had leta left over from when she was . Taking 4mg once daily as needed. This seems to help, but needs a refill. Denies constipation or diarrhea. LMP - last month. Currently on the nuva ring. Vapes nicotine - is trying to slow down on how much she smokes. Acid reflux - takes Tums once a month. Hx R tibia plateau fx. Still has goose egg and pain in leg. Pt instructed to call her orthopedic doctor, Dr. Daily Sanchez, [employer] [address], [facility] [address], [place], [address], [facility] [employer] 11/16/2024 16:38:40 OBGyn Episode No OBEpisode recorded.
--- OUTSIDE RECORDS SUMMARY | 2024-12-14 15:37 | XMS_ITS | Referral Summary ---
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 Name Role Phone Karina Dey MD Primary Care Provider [phone] Encounters Date Type Department Care Team Description 11/10/2024 Telephone [facility] Neurology [address] [place] [phone] Tang Kelley MD Prior Auth (Ubrelvy 100mg) 11/09/2024 3:00 PM CDT Office Visit [facility] Neurology [address] [place] [address] [place] [phone] Tang Kelley MD Migraine without status migrainosus, not intractable, unspecified migraine type from Last 3 Months Allergies Active Allergy Reactions Criticality Noted Date Comments Buspirone Vomiting Low 01/17/2021 Lemon Oil Rash Medium 07/05/2021 Medications ARIPiprazole (ABILIFY) 2 mg tablet 08/02/20 21 Active ibuprofen (ADVIL,MOTRIN) 400 mg tabletIndications: Pain Take 1 tablet (400 mg total) by mouth every 6 (six) hours as needed for pain 30 tablet 08/02/20 21 Active Additional Information Patient not taking.Reported on 11/09/2024 cyclobenzaprine (FLEXERIL) 10 mg tablet Take 10 mg by mouth every 8 (eight) hours as needed 12/13/19 22 Active cetirizine (ZyrTEC) 10 mg tablet cetirizine 10 mg tablet TK 1 T PO QD Active ergocalciferol (VITAMIN D) 50,000 unit capsule Take 50,000 Units by mouth once a week 02/26/20 22 Active hydrOXYzine (VISTARIL) 25 mg capsule TAKE 1 CAPSULE BY MOUTH TWICE A DAY NEEDED 02/28/20 22 Active famotidine (PEPCID) 20 mg tablet Take 20 mg by mouth 2 (two) times a day 07/05/20 21 Active naproxen (NAPROSYN) 500 mg tablet Take 500 mg by mouth 12/13/19 22 Active ondansetron ODT (ZOFRAN-ODT) 4 mg disintegrating tablet Take 4 mg by mouth every 8 (eight) hours as needed 07/05/[address] (PROTONIX) 40 mg EC tablet TAKE 1 TABLET BY MOUTH EVERY DAY FOR 14 DAYS 01/23/20 22 Active sertraline (ZOLOFT) 50 mg tablet Active Qulipta 60 mg tablet Take 1 tablet by mouth daily 10/13/19 25 Active EnilloRing 0.12-0.015 mg/24 hr vaginal ring USE ONE RING PER VAGINA MONTHLY DIRECTED 11/07/19 25 Active ubrogepant (Ubrelvy) 100 mg tabletIndications: Migraine Take 1 tablet (100 mg total) by mouth once as needed for migraine May repeat dose once in 2 hours if no relief. Do not exceed 2 doses in 24 hours. 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 RADAR OPERATOR Respiratory Rate 16 08/02/2021 11:28 AM FIELD ARTILLERY RADAR OPERATOR Oxygen Saturation 99% 11/09/2024 2:41 PM CDT Inhaled Oxygen Concentration - - Weight 105.2 kg (232 lb) 11/09/2024 2:41 PM CDT Height 160 cm (5' 2.99 ) 11/09/2024 2:41 PM CDT Body Mass Index 41.11 11/09/2024 2:41 PM CDT Plan of Treatment [place] [address] [facility] Care Teams Impact Retail Service Merchandiser Relationship Specialty Start Date End Date Karina Dey MD [address] [place] [address] [place] [address] PCP - General Family Medicine 03/14/22
--- OUTSIDE RECORDS SUMMARY | 2024-12-14 15:37 | XMS_ITS ---
Author Organization [facility] Address [address] [place] [address] Care Team Providers Care Hospital Attendant Name Role Phone Kristen Guerrero Primary Care Provider [phone] Allergies Allergen (clinical drug ingredient) Drug/Non Drug Allergy documented on EMR Reaction Allergy Type Onset Date Status Lemon Juice LEMON JUICE (uncoded) HIVES Allergy Active BuSpar SICK Drug Allergy Active escitalopram Lexapro nausea and vomiting Drug Allergy Active REASON FOR VISIT 3 Month Psych F/U & Med Refill Medications Medication SIG (Take, Route, Frequency, Duration) Notes Start Date End Date Status Sertraline HCl 50 MG 1 tablet Orally Onc e a day for 30 days Active Vitamin D (Ergocalciferol) 1.25 MG (88429 UT) TAKE 1 CAPSULE BY MOUTH ONCE A WEEK for 28 Active Zofran Active EnilloRing 0.12-0.015 MG/24HR Vaginal for 84 Days Active Cyclobenzaprine HCl 10 MG Oral for 15 Days Active Diclofenac Sodium 75 MG TAKE 1 TABLET BY MOUTH TWICE DAILY WITH FOOD NEEDED FOR PAIN Oral for 15 Days Active Encounters Encounter Location Date Provider Diagnosis [address] [place] [address] 11/10/2024 Kristen Guerrero Borderline personality disorder F60.3 and Post depression F53.0 Assessments Encounter Date Diagnosis (ICD Code) Assessment Notes Treatment Notes Treatment Clinical Notes Section Notes 11/10/2024 Borderline personality disorder (ICD-10 - F60.3) Client to call to get started back in therapy. 11/10/2024 Post depression (ICD-10 - F53.0) Discussed nausea vs food aversion- client to f/u with PCP to check physical anatomy and then may discuss other options with this provider if physical anatomy is WDL. May look to remeron. 11/10/2024 Other Reasons, potential benefits, potential risks, interactions [...] May also contact the 24-hour crisis hotline ([facility]), refer to the closest emergency room or [...] AIMS, or vital signs. Plan Of Treatment Medication Medication Name Sig Start Date Stop Date Notes Sertraline HCl 50 MG 1 tablet Orally Onc e a day for 30 days Treatment Notes Assessment Notes Borderline personality disorder Client t o call to get started back in therapy. Other Reasons, potential benefits, potential risks, interactions [...] May also contact the 24-hour crisis hotline ([facility]), refer to the closest emergency room or [...] up. This session was completed telephonically with client/parental/guardian consent: Unable to determine movement status, assess appearance, affect, AIMS, or vital signs. Next Appt Details Follow Up: 4 Weeks, Reason: Psych F/U, may be telehealth Progress Notes * Eileen ANTHONYDOB:2000 (24 yo F)Acc No.[id number]:11/10/2024 Patient: Eileen ESPINOSA Provider: Heike Guerrero, MSN, RURAL HEALTH CONSULTANT, FAMILY LAW LEGAL ASSISTANT-C :2000 A ge:24 Y S ex:Female Date:11/10/2024 Address:[address] [place] [address] Subjective: * Chief Complaints: * 3 Month Psych F/U & Med Refill * HPI: D epression Screening: PHQ-9 L ittle interest or pleasure in doing things S everal days, F eeling down, depressed, or hopeless N ot at all, T rouble falling or staying asleep, or sleeping too much N early every day, F eeling tired or having little energy Nearly every day, P oor appetite or overeating N early every day, F eeling bad about yourself or that you are a failure, or have let yourself or your family down N ot at all, T rouble concentrating on things, such as reading the newspaper or watching television N ot at all,?Moving or speaking so slowly that other people could have noticed; or the opposite, being so fidgety or restless that you have been moving around a lot more than usual N ot at all, T houghts that you would be better off or of hurting yourself in some way N ot at all, T otal Score 1 0, I nterpretation M oderate Depression. I ntervention D epression Screening Findings P ositive, F ollow-Up for Depression N o Referral necessary, patient involved in behavioral health treatment .. S creening: [place] Suicide Severity Rating Scale (LF) D o you want to initiate with S creener form, 1 . Wish to be : Have you wished you were or wished you could go to sleep and not wake up? N o, 2 . Suicidal Thoughts: Have you actually had any thoughts of killing yourself? N o, 6 . Suicide Behavior Question: Have you ever done anything,started to do anything, or prepared to end your life? N o, I nterpretation: L ow Risk. C SSRS Interpretation and Follow Up Plan: CSSRS Interpretation and Follow Up Plan C SSRS Screen documented using SF Y es, R isk Disposition from SF L ow - No Follow Up Plan Required, F ollow Up Plan N o Follow Up Plan required at this time.. P sychiatric Assessment - Current Symptoms: How ct. doing today? Client is a 24 yo F on the phone today stating she is struggling with her appetite. Reports she got a new tattoo that she likes. started Qulipta for migraines which helps some, and she is working with neuro now. States therapy ended because Zuleyma is not working for like a year or something. Reports feeling empty often. Depression: Denies, I just feel perpetually empty. Anxiety: Denies that has been good especially since I went no-contact with my mother. Anger/irritability: Yeah that has been a bit bad, hair-trigger with that. Coping: I will stop in the middle of what I am saying, take a breath, think, then talk more calmly. Appetite: Low, I am happy about losing weight, but the thought of food grosses me out and I just don't want to eat. Sleep: Horrible. Reports taking Qulipta and sertraline at night, then my brain shuts down some and I can sleep, but sometimes I take it and am still up until 3 and running on a few hours. Energy: I am always tired. Drugs/ETOH: THC use Hallucinations: Some audio of people calling my name, feeling like someone is tapping my shoulder, just typical with my BPD. Paranoia: Not really, still worry about making sure the house is locked up, looking over my shoulder in public. Concentration: Good Medications: has been taking the sertraline. I just got it refilled, but they only gave me a week. States her fiance notices a difference with the sertraline, but I don't really feel much different. Denies SI/HI. * ROS: P sych ROS: Constitutional D enies. E yes D enies. E ars/Nose/Mouth/Throat D enies. R espiratory D enies. A llergic/Immunologic D enies.?Cardiovascular D enies. G I D enies. M usculoskeletal D enies. N eurological D enies. I ntegumentary D enies. E ndocrine D enies. P sych R eports anger/irritability., Denies SI/HI. * Medical History: * Surgical History: t onsillectomy and adenoidectomy * Hospitalization/Major Diagno stic Procedure: K ettler x2 [facility] michele pranaomie childbirth * Family History: F ather: alive. M other: alive. 2 sister(s) - healthy. 1 daughter(s) - healthy. .? Family hx of bipolar disorder. * Social History: P rimary Social History: L iving Arrangement L iving Arrangement: I ndependent Living, I s this a supportive environment? Y es. A lcohol Use A lcohol Use Frequency: N ever. I llicit Substance Usage I llicit Substance Usage: Y es, S ubstance Used: C annabis, I nterested in quitting: N o. 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 * Medications: T akingZofran Vitamin D (Ergocalciferol) 1.25 MG (09040 UT) Capsule TAKE 1 CAPSULE BY MOUTH ONCE A WEEK Diclofenac Sodium 75 MG Tablet Delayed Release TAKE 1 TABLET BY MOUTH TWICE DAILY WITH FOOD NEEDED FOR PAIN Oral Cyclobenzaprine HCl 10 MG Tablet Oral EnilloRing 0.12-0.015 MG/24HR Ring Vaginal Sertraline HCl 25 MG Tablet 1 tablet Orally Once a day Taking Zofran Taking Vitamin D (Ergocalciferol) 1.25 MG (21721 UT) Capsule TAKE 1 CAPSULE BY MOUTH ONCE A WEEK Taking Diclofenac Sodium 75 MG Tablet Delayed Release TAKE 1 TABLET BY MOUTH TWICE DAILY WITH FOOD NEEDED FOR PAIN Oral Taking Cyclobenzaprine HCl 10 MG Tablet Oral Taking EnilloRing 0.12-0.015 MG/24HR Ring Vaginal Taking Sertraline HCl 25 MG Tablet 1 tablet Orally Once a day * Allergies: B uSpar: SICK - AllergyLEMON JUICE: HIVES - AllergyLexapro: nausea and vomiting - Side Effects Objective: * Vitals: * Examination: M ental Status Exam: SENSORIUM AND COGNITION Alert, Oriented to Person, Oriented to Place, Oriented to Time, Oriented to Situation. ATTENTION AND CONCENTRATION No deficits. ATTITUDE AND BEHAVIOR Cooperative, Receptive. MEMORY Immediate, Recent, Remote. MOOD Euthymic. SPEECH QUANTITY Appropriate. SPEECH QUALITY Appropriate volume. THOUGHT PROCESS Coherent and goal directed. THOUGHT CONTENT Appropriate - WNL. MOTOR ACTIVITY P marquita interview. SUICIDAL IDEATION Denies suicidal ideation. HOMICIDAL IDEATION Denies homicidal ideation. INSIGHT F air. JUDGMENT F air. FUND OF KNOWLEDGE F air. ABILITY TO PARTICIPATE IN TREATMENT M oderate. WILLINGNESS TO PARTICIPATE IN TREATMENT M oderate. E xam limited due to telephone encounter. Assessment: * Assessment: 1. B orderline personality disorder - F60.3 (Primary) 2 . P ost depression - F53.0 Plan: * Treatment: 2. P ost depression Increase Sertraline HCl Tablet, 50 MG, 1 tablet, Orally, Once a day, 30 days, 30, Refills 0. ? Clinical Notes: Discussed nausea vs food aversion- client to f/u with PCP to check physical anatomy and then may discuss other options with this provider if physical anatomy is WDL. May look to remeron. 3. O thers Notes: Reasons, potential benefits, potential risks, interactions and [...] up. This session was completed telephonically with client/parental/guardian consent: Unable to determine movement status, assess appearance, affect, AIMS, or vital signs. * Procedure Codes: * Follow Up: 4 Weeks (Reason: Psych F/U, may be telehealth) * * Sign off status: Completed true * Provider: Heike Guerrero, MSN, RURAL HEALTH CONSULTANT, FAMILY LAW LEGAL ASSISTANT-C Date: 0 11/10/2024 Generated for Carlos brown/Macy/Monika on: 0 12/14/2024 03:36 PM CDT History and Physical Notes * HPI (History of Present Illness) Category Sub-Category Detail Notes Category Not es Depression Screening PHQ-9 Little inte rest or pleasure in doing things: Several days Feeling down, depressed, or hopeless: No t at all Trouble falling or staying asleep, or sl eeping too much: Nearly every day Feeling tired or having little energy: N early every day Poor appetite or overeating: Nearly ever y day Feeling bad about yourself o r that [...] some way: Not at all Total Score: 10 Interpretation: Moderate Depression Intervention Depression Screening Findings: P ositive Follow-Up for Depression: No Referral necessary, patient involved in behavioral health treatment . Psychiatric Assessment - Current Symptoms How ct. doing today? Client is a 24 yo F on the phone today stating she is struggling with her appetite. Reports she got a new tattoo that she likes. States started Qulipta for migraines which helps some, and she is working with neuro now. States therapy ended because Zuleyma is not working for like a year or something. Reports feeling empty often. Depression: Denies, I just feel perpetually empty. Anxiety: Denies that has been good especially since I went no-contact with my mother. Anger/irritability: Yeah that has been a bit bad, hair-trigger with that. Coping: I will stop in the middle of what I am saying, take a breath, think, then talk more calmly. Appetite: Low, I am happy about losing weight, but the thought of food grosses me out and I just don't want to eat. Sleep: Horrible. Reports taking Qulipta and sertraline at night, then my brain shuts down some and I can sleep, but sometimes I take it and am still up until 3 and running on a few hours. Energy: I am always tired. Drugs/ETOH: THC use Hallucinations: Some audio of people calling my name, feeling like someone is tapping my shoulder, just typical with my BPD. Paranoia: Not really, still worry about making sure the house is locked up, looking over my shoulder in public. Concentration: Good Medications: States has been taking the sertraline. I just got it refilled, but they only gave me a week. States her fiance notices a difference with the sertraline, but I don't really feel much different. Denies SI/HI. Screening [place] Suicide Severity Rating Scale (LF) Do you want to initiate with: Screener form 1. Wish to be : Have you wished you were or wished you could go to sleep and not wake up?: No 2. Suicidal Thoughts: Have you actually had any thoughts of killing yourself?: No 6. Suicide Behavior Question: Have you ever done anything,started to do anything, or prepared to end your life?: No Interpretation:: Low Risk CSSRS Interpretation and Follow Up Plan CSSRS Interpretation and Follow Up Plan CSSRS Screen documented using SF: Yes Risk Disposition from SF: Low - No Follo w Up Plan Required Follow Up Plan: No Follow Up Plan requir ed at this time. Examination Category Sub-Category Detail Notes Category Not es Mental Status Exam SENSORIUM AND COGNITION Alert, Oriented to Person, Oriented to Place, Oriented to Time, Oriented to Situation Exam limited due to telephone encounter. ATTENTION AND CONCENTRATION No deficits ATTITUDE AND BEHAVIOR Cooperative, Activities Officer tive MEMORY Immediate, Recent, R emote MOOD Euthymic SPEECH QUANTITY Appropriate SPEECH QUALITY Appropriate volume THOUGHT PROCESS Coherent and goal di rected THOUGHT CONTENT Appropriate - WNL MOTOR ACTIVITY Phone interview SUICIDAL IDEATION Denies suicidal idea tion HOMICIDAL IDEATION Denies homicidal cami ation INSIGHT Fair JUDGMENT Fair FUND OF KNOWLEDGE Fair ABILITY TO PARTICIPATE IN TREATMENT Mode rate WILLINGNESS TO PARTICIPATE IN TREATMENT Moderate
--- OUTSIDE RECORDS SUMMARY | 2024-12-14 15:37 | XMS_ITS | Patient Health Record ---
Author Organization [facility] Address [address] [place] [address] Care Team Providers Care Plaster Foreman Name Role Phone Kristen Guerrero Primary Care Provider Francheska De Anda Unavailable [phone] Karen Duke Unavailable [phone] Zuleyma Faustin Unavailable [phone] Allergies Allergen (clinical drug ingredient) Drug/Non Drug Allergy documented on EMR Reaction Allergy Type Onset Date Status Lemon Juice LEMON JUICE (uncoded) HIVES Allergy Active BuSpar SICK Drug Allergy Active escitalopram Lexapro nausea and vomiting Drug Allergy Active Reason For Referral No Information Medications Medication SIG (Take, Route, Frequency, Duration) Notes Start Date End Date Status Vitamin D (Ergocalciferol) 1.25 MG (82585 UT) TAKE 1 CAPSULE BY MOUTH ONCE A WEEK for 28 Active Diclofenac Sodium 75 MG TAKE 1 TABLET BY MOUTH TWICE DAILY WITH FOOD NEEDED FOR PAIN Oral for 15 Days Active Zofran Active Sertraline HCl 50 MG TAKE 1 TABLET BY MO UTH DAILY for 30 Active EnilloRing 0.12-0.015 MG/24HR Vaginal for 84 Days Active Cyclobenzaprine HCl 10 MG Oral for 15 Days Active Social History Tobacco Use: Social History Observation Description Date Details (start date - stop date) Current Smoker NA - NA Dont use, Tobacco Use/Smoking Question Answer Notes Are you a current smoker How often do you smoke cigarettes? every day How many cigarettes a day do you smoke? 6-10 PRAPARE Question Answer Notes Date Completed/Updated: 12/06/2024 What is your current housing situation? I have h ousing Are you worried about losing your housing? No What is the highest level of school that you have finished? 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 Check all that apply I do not have problems meeting my needs Has lack of transportation k ept you from medical appointments, meetings, work or from getting things needed for daily living? No How often do you see or talk to people that you care about and feel close to? (For example: talking to friends on the phone, visiting friends or family, going to jainism or club meetings) More than 5 times a week How stressed are you? Stress is when someone feels tense, nervous, anxious, or can\t sleep at night because their mind is troubled Very much In the past year have you sp ent more than 2 nights in a row in a penitentiary, residential, shelter center, or juvenile correctional facility? No Do you feel physically and e motionally safe where you currently live? Yes In the past year, have you b een afraid of your partner or ex-partner? No PRAPARE Score: 6 Tobacco Control (Standard) Question Answer Notes Tobacco use: Current every day smoker Additional Findings: Tobacco user e-cigarette Section Notes: PRESCRIPTION # FILLED WRITTEN DRUG LABEL QTY DAYS STRENGTH MEDD PRESCRIBER PHARMACY REFILL NO. REFILLS STATE 10/21/2022 10/21/2022 ALPRAZolam 90.0 30 0.5 MG NA Karina Gudino Md [id number] [id number] 0 [place] 1 [id number] 09/17/2022 09/16/2022 ALPRAZolam 90.0 30 0.5 MG NA Karina Gudino Md [id number] [id number], [place], [place] NA 0 [place] 1 [id number] 08/19/2022 08/19/2022 ALPRAZolam 90.0 30 0.5 MG NA Karina Gudino Md [id number] [id number], [place], [place] 1 [id number] 08/07/2022 08/07/2022 traMADol 30.0 7 50 MG 21.43 El-Karina sarmiento Md [id number] [facility] [id number], [place], [place] 1 [id number] 07/21/2022 07/21/2022 ALPRAZolam 90.0 30 0.5 MG NA Fortino-Karina sarmiento Md [id number] [facility]v PRESCRIPTION # FILLED WRITTEN DRUG LABEL QTY DAYS STRENGTH MME PRESCRIBER PHARMACY REFILL NO. REFILLS STATE 05/23/2022 05/22/2022 Phentermine Hcl 30.0 30 37.5 MG NA Fortino-Karina sarmiento Md [id number] [facility] # [id number], [place], [place] 1 [id number] 05/22/2022 05/22/2022 ALPRAZolam 90.0 30 0.5 MG NA Fortino-Karina sarmiento Md [id number] [facility] [place] 1 [id number] 06/20/2022 06/20/2022 ALPRAZolam 90.0 30 0.5 MG NA El-Karina sarmiento Md [id number] PRESCRIPTION # FILLED WRITTEN DRUG LABEL QTY DAYS STRENGTH MEDD PRESCRIBER PHARMACY REFILL NO. REFILLS STATE 12/19/2022 12/19/2022 ALPRAZolam 90.0 30 0.5 MG NA Fortino-Karina sarmiento Md [id number] [facility] 1 [id number] 10/21/2022 10/21/2022 ALPRAZolam 90.0 30 0.5 MG NA El-Karina sarmiento Md [id number] [facility] [id number] 1 [id number] 09/17/2022 09/16/2022 ALPRAZolam 90.0 30 0.5 MG NA El-Karina sarmiento Md [id number] PRESCRIPTION # FILLED WRITTEN DRUG LABEL QTY DAYS STRENGTH MME PRESCRIBER PHARMACY REFILL NO. REFILLS STATE 01/18/2023 01/14/2023 ALPRAZolam 90.0 30 0.5 MG NA El-guillerminaKarina hickman Md [id number] [id number], [place], [place] 1 [id number] 01/16/2023 01/16/2023 diazePAM 12.0 4 2 MG NA Mark Iii Larry Suarez - [id number] [facility] [id number], [place], [place] 1 [id number] 12/19/2022 12/19/2022 ALPRAZolam 90.0 30 0.5 MG NA El-guillerminaKarina hickman Md [id number] [facility] PRESCRIPTION # FILLED WRITTEN DRUG LABEL QTY DAYS STRENGTH MME PRESCRIBER PHARMACY REFILL NO. REFILLS STATE 04/16/2023 04/16/2023 ALPRAZolam 90.0 30 0.5 MG NA El-Karina sarmiento Md [id number] [facility] # [id number], [place], [place] 1 [id number] 03/20/2023 03/20/2023 ALPRAZolam 90.0 30 0.5 MG NA El-guillerminaKarina Md [id number] [facility] # [id number], [place], [place] 1 [id number] 02/18/2023 02/17/2023 ALPRAZolam 90.0 30 0.5 MG NA El-Karina sarmiento Md [id number] [facility] [place] 1 [id number] 01/18/2023 01/14/2023 ALPRAZolam 90.0 30 0.5 MG NA El-guillerminaKarina Md [id number] [facility] PRESCRIPTION # FILLED WRITTEN DRUG LABEL QTY DAYS STRENGTH MME PRESCRIBER PHARMACY REFILL NO. REFILLS STATE 04/16/2023 04/16/2023 ALPRAZolam 90.0 30 0.5 MG NA El-guillerminaKarina hickman Md [id number] [facility] [place] 1 [id number] 03/20/2023 03/20/2023 ALPRAZolam 90.0 30 0.5 MG Karina Colon Md [id number] [facility] # 55438, [place], [place] 1 [id number] 02/18/2023 02/17/2023 ALPRAZolam 90.0 30 0.5 MG Karina Colon Md [id number] [facility] # [id number], [place], [place] 1 [id number] 01/18/2023 01/14/2023 ALPRAZolam 90.0 30 0.5 MG NA Karina Gudino Md [id number] [facility] PRESCRIPTION # FILLED WRITTEN DRUG LABEL QTY DAYS STRENGTH MEDD PRESCRIBER PHARMACY REFILL NO. REFILLS STATE 10/21/2022 10/21/2022 ALPRAZolam 90.0 30 0.5 MG Karina Colon Md [id number] [facility] 27984, [place], [place] NA 0 [place] 1 [id number] 09/17/2022 09/16/2022 ALPRAZolam 90.0 30 0.5 MG Karina Colon Md Problems Problem Type SNOMED Code ICD Code Onset Dates Problem Status W/U Status Risk Notes Problem Tobacco user (013812236) Nicotine dependence, unspecified, uncomplicated (F17.200) Active confirmed Problem 69418709 Borderline personality disorder (F60.3) Active confirmed Problem Mood disorder (76493564) Mood disorder (F39) Active confirmed Problem Nicotine dependence (62024302) Nicotine dependence (F17.200) Active confirmed Problem depression (66210436) Post depression (F53.0) Active confirmed Encounters Encounter Location Date Provider Diagnosis [address] [address] 12/26/2023 Francheska Osmanbeitzel Borderline personality disorder F60.[address] [place] [address] 12/31/2023 Francheska Sanftteresabeitzel Borderline personality disorder F60.[address] [place] [address] 01/14/2024 Francheska Sanftleben Borderline personality disorder F60.[address] [place] [address] 02/11/2024 Francheska Sanftleben Borderline personality disorder F60.[address] [place] [address] 03/05/2024 Francheska Sanftleben Borderline personality disorder F60.[address] [place] [address] 03/18/2024 Francheska Sanftleben Borderline personality disorder F60.[address] [place] [address] 03/24/2024 Francheska Sanftleben Borderline personality disorder F60.[address] [address] 04/12/2024 Francheska Sanftleben Borderline personality disorder F60.[address] [place] [address] 04/30/2024 Francheska Sanftleben Borderline personality disorder F60.[address] [address] 05/04/2024 Francheska Sanftleben Borderline personality disorder F60.[address] [place] [address] 05/20/2024 Francheska Sanftleben Borderline personality disorder F60.[address] [place] [address] 06/03/2024 Francheska Sanftleben Borderline personality disorder F60.[address] [place] [address] 07/01/2024 Zuleyma Faustin Borderline personality disorder F60.[address] [place] [address] 07/13/2024 Zuleyma Faustin Borderline personality disorder F60.3 and Post depression F53.0 [facility] [address] [place] [address] 07/28/2024 Zuleyma Faustin Borderline personality disorder F60.[address] [place] [address] 08/05/2024 Kristenemely Guerrero Borderline personality disorder F60.3 and Post depression F53.0 [facility] [address] [place] [address] 08/09/2024 Zuleyma Faustin Borderline personality disorder F60.3 [facility] [address] [place] [address] 09/03/2024 Zuleyma Faustin Borderline personality disorder F60.3 [facility] [address] [place] [address] 09/16/2024 Zuleyma Faustin Borderline personality disorder F60.3 [facility] [address] [place] [address] 09/30/2024 Zuleyma Faustin Borderline personality disorder F60.3 [facility] [address] [place] [address] 10/07/2024 Zuleyma Faustin Borderline personality disorder F60.[address] [place] [address] 11/10/2024 Kristenemely Guerrero Borderline personality disorder F60.3 and Post depression F53.[address] [place] [address] 03/02/2024 Francheska Sanftleben [address] [place] [address] 04/09/2024 Francheska Sanftleben [address] [place] [address] 04/12/2024 Francheska Sanftlebeitzel [address] [place] [address] 04/27/2024 Francheska De Anda [facility] [address] [place] [address] 10/28/2024 Karen Duke [facility] [address] [place] [address] 11/04/2024 Kristen Guerrero Post depression F53.[address] [place] [address] 12/07/2024 Kristen Guerrero Assessments Encounter Date Diagnosis (ICD Code) Assessment Notes Treatment Notes Treatment Clinical Notes Section Notes 12/26/2023 Borderline personality disorder (ICD-10 - F60.3) 03/24/2024 Borderline personality disorder (ICD-10 - F60.3) 05/04/2024 Borderline personality disorder (ICD-10 - F60.3) 09/30/2024 Borderline personality disorder (ICD-10 - F60.3) 10/07/2024 Borderline personality disorder (ICD-10 - F60.3) 11/10/2024 Borderline personality disorder (ICD-10 - F60.3) Client to call to get started back in therapy. 11/04/2024 Post depression (ICD-10 - F53.0) 09/16/2024 Borderline personality disorder (ICD-10 - F60.3) 09/03/2024 Borderline personality disorder (ICD-10 - F60.3) 08/09/2024 Borderline personality disorder (ICD-10 - F60.3) 08/05/2024 Borderline personality disorder (ICD-10 - F60.3) 07/28/2024 Borderline personality disorder (ICD-10 - F60.3) 07/13/2024 Borderline personality disorder (ICD-10 - F60.3) 07/01/2024 Borderline personality disorder (ICD-10 - F60.3) 06/03/2024 Borderline personality disorder (ICD-10 - F60.3) 05/20/2024 Borderline personality disorder (ICD-10 - F60.3) 04/30/2024 Borderline personality disorder (ICD-10 - F60.3) 04/12/2024 Borderline personality disorder (ICD-10 - F60.3) 03/18/2024 Borderline personality disorder (ICD-10 - F60.3) 03/05/2024 Borderline personality disorder (ICD-10 - F60.3) 02/11/2024 Borderline personality disorder (ICD-10 - F60.3) 12/31/2023 Borderline personality disorder (ICD-10 - F60.3) 01/14/2024 Borderline personality disorder (ICD-10 - F60.3) 07/13/2024 Post depression (ICD-10 - F53.0) 08/05/2024 Post depression (ICD-10 - F53.0) 11/10/2024 Post depression (ICD-10 - F53.0) Discussed nausea vs food aversion- client to f/u with PCP to check physical anatomy and then may discuss other options with this provider if physical anatomy is WDL. May look to remeron. 04/30/2024 Other Client is engaged in short [...] May also contact the 24-hour crisis hotline ([facility]), refer to the closest emergency room or [...] assess appearance, affect, AIMS, or vital signs. 11/10/2024 Other Reasons, potential benefits, potential risks, [...] Insured Coverage Start Date Coverage End Date [facility] Attn Claims Department [address] [address] [phone] [id number] Eileen López Self - patient is the insured 1 [facility] Attn Claims Department [address] [address] [phone] [id number] Eileen López Self - patient is the insured 1 [employer] Attn Claims Department [address] [address] [phone] [id number] Eileen López Self - patient is the insured 1 [employer] [facility] Att[facility] Claims Department [address] [address] [phone] [id number] Eileen López Self - patient is the insured 1 [facility] Claims Department [address] [place] [address] [phone] [id number] Eileen López Self - patient is the insured 3 Medical (General) History Medical History History ICD Code borderline personality disorder Surgical History Surgery Date(Month/Year) tonsillectomy and adenoidectomy Hospitalization History Reason Date(Month/Year) childbirth michele [facility]elli [facility]
--- OUTSIDE RECORDS SUMMARY | 2024-12-14 15:37 | XMS_ITS | Continuity of Care Document ---
Author Organization [facility] Address [address] [place] [address] [address] [place] [address] Phone Care Team Providers Care Treasury Manager Name Role Phone Lujan OD, Titus Unavailable Unavailable Procedures Procedure Date Eye Exam, New Patient Advance Directives Directive Yes / No Effective Date File Name No Information Encounters Encounter Description Practice Location Reason(s) For Visit Diagnoses Date Provider Providers Copied on Encounter [facility], [address], [place], [place], [id number], [place] tel:[phone] [facility] [place] No Information [phone] Lujan OD Titus. [address] [facility] [place] , [address], [place], [address], [place]. tel:[phone] Family History Family Member Type Diagnosis Age At Onset No Information Payers Payer name Insurance type Covered libertarian ID Authoriza tion(s) Medicaid [facility] [id number] Social History Type Description Quantity Date Captured [...]
--- OUTSIDE RECORDS SUMMARY | 2024-12-14 15:37 | XMS_ITS | Clinical Summary ---
Author Organization [facility] Address [address] [place] [address] Care Team Providers Care Crimping Machine Operator Name Role Phone Karina Warren MD Primary Care Provider [phone] Allergies Active Allergy Reactions Criticality Noted Date [...] 88 04/03/2022 4:21 PM CDT Temperature 36.9 C (98.4 F) 04/03/2022 2:59 PM CDT Respiratory Rate 16 04/03/2022 4:21 PM CDT [...] 5 Years) and At-Risk Patients (6 to 49 Years) (1 of 2 - PCV) 2004 DTaP, Tdap and Td Vaccines (6 - Tdap) 2009 07/20/2002, 06/08/2002, 03/13/1999, Additional history exists Hepatitis C 2016 Hepatitis B Vaccines (1 of 3 - 19+ 3-dose series) 2017 COVID-19 Vaccine ( season) 2024 Meningococcal Vaccine Completed 04/18/2015 HPV Vaccines Completed 06/06/2017, 04/02, 02/14/2009 Meningococcal B Vaccine Aged Out No l onger eligible based on patient's age to complete this topic RSV Immunizations Under 20 Months Aged Out No longer eligible based on patient's age to complete this topic Insurance [employer] Care Teams Crimping Machine Operator Relationship Specialty Start Date End Date Karina Warren MD [address] [place] [address] PCP - General FAMILY PRACTICE 04/03/22
--- OUTSIDE RECORDS SUMMARY | 2024-12-14 15:37 | XMS_ITS | Clinical Summary ---
Author Organization [facility] Address [address] [place] [address] Care Team Providers Care Rigger Helper Name Role Phone Karina Dey MD Primary Care Provider [phone] Allergies Active Allergy Reactions Criticality Noted Date [...] today. No ptosis. Most likely physiological. Noted. Encounters Date Type Department Care Team Description 11/10/2024 Telephone [facility] Neurology [address] [place] [address] Tang Kelley MD Prior Auth (Ubrelvy 100mg) 11/09/2024 3:00 PM CDT Office Visit [facility] Neurology [facility] [address] [place] [address] Tang Kelley MD Migraine without status migrainosus, not intractable, unspecified migraine type from Last 3 Months Medical History Medical History Date Comments Eye [...] on file Legal Sex Female 11:01 AM RESERVATION MANAGER Gender Identity Not on file Sexual Orientation Not on file Obstetrics History Last Filed Vital Signs Vital Sign Reading Time Taken Comments Blood Pressure 118/62 11/09/2024 2:41 PM CDT Pulse 68 11/09/2024 2:41 PM CDT Temperature 36.7 C (98.1 F) 08/02/2021 11:28 AM RESERVATION MANAGER Respiratory Rate 16 08/02/2021 11:28 AM RESERVATION MANAGER Oxygen Saturation 99% 11/09/2024 2:41 PM CDT Inhaled Oxygen Concentration - - Weight 105.2 kg (232 lb) 11/09/2024 2:41 PM CDT Height 160 cm (5' 2.99 ) 11/09/2024 2:41 PM CDT Body Mass Index 41.11 11/09/2024 2:41 PM CDT Plan of Treatment Health Maintenance Due Date Last Done Comments Cervical Cancer Screening 1998 Depression Screening 1998 Hepatitis C Screening 1998 Regular Well Visit/Exam 18-64 2016 Pneumococcal vaccine <65 (1 of 2 - PCV) 2017 Covid-19 Vaccine (2023-2 5 season) 2024 03/11/2021, 02/18/2021 Influenza Vaccine (#1) 2024 7, 05/15/2012, 06/20/2011, Additional history exists DTaP/Tdap/Td Vaccine (7 - Td or Tdap) 06/06/2027 06/06/2017, 07/20/2002, 06/08/2002, Additional history exists Hepatitis B Screening Completed 1998 , 1998, 1998 HPV Vaccines Completed 06/06/2017, 04/02, 02/14/2009 Varicella Vaccines Completed 06/06/2017, 03/13/[address] [place] [address] [place] [address] [facility] [place] [address] [place] [address] Care Teams Rigger Helper Relationship Specialty Start Date End Date Karina Dey MD [facility] [place] [address] PCP - General Family Medicine 03/14/22
--- OUTSIDE RECORDS SUMMARY | 2024-12-14 15:37 | XMS_ITS ---
Author Organization [facility] Address [address] [place] [address] Care Team Providers Care Planting Material Carrier Name Role Phone Kristen Guerrero Primary Care Provider REASON FOR VISIT Refills Medications Medication SIG (Take, Route, Fr equency, Duration) Notes Start Date End Date Status Sertraline HCl 25 MG 1 tablet Orally Onc e a day for 7 days 08/05/2024 Active Encounters Encounter Location Date Provider Diagnosis [facility] [address], [place] [address] 11/04/2024 Kristen Guerrero Post depression F53.0 Assessments Encounter Date Diagnosis (ICD Code) Assessment Notes Treatment Notes Treatment Clinical Notes Section Notes 11/04/2024 Post depression (ICD-10 - F53.0) Plan Of Treatment Medication Medication Name Sig Start Date Stop Date Notes Sertraline HCl 25 MG 1 tablet Orally Once a day for 7 days 08/05/2024 Progress Notes * Eileen ANTHONYDOB:2000 (24 yo F)Acc No.[id number]:11/04/2024 Patient: Chi ESPINOSAley :2000 A ge:24 Y S ex:Female Address:[address] [place] [address], [address] * Refills Refill Sertraline HCl Tablet, 25 MG, Orally, 7 Tablet, 1 tablet, Once a day, 7 days, Refills=0 * true * Date: Generated for Printi ng/Faxing/eTransmitting on: 0 12/14/2024 03:37 PM CDT
--- OUTSIDE RECORDS SUMMARY | 2024-12-14 15:38 | XMS_ITS | Data Portability ---
Author Organization [facility] Address [address] [place] [address] Care Team Providers Care Apprenticeship Consultant Name Role Phone YOSEPH CHANDLER Technical Trainer Assessment No assessment recorded. Plan of Treatment Reminders Order Date Submit Date Provider Last Modified By Organization Details Last Modified Time Details Appointments None recorded. Lab test, urine 2017 018 naldo In-Office Order, Internal Use Only DO Not Attach Compendium DO Not Attach Compendium, Do Not Delete/merge, [id number] 8 12:23:52 urinalysis, dipstick 2017 018 naldo In-Office Order, Internal Use Only DO Not Attach Compendium DO Not Attach Compendium, Do Not Delete/merge, [id number] 8 12:23:52 dhea-sulfat e, serum 2017 018 ELIEZER Jernigan, [address], [place], [address], 8 06:06:21 prolactin, serum 2017 018 ELIEZER Jernigan, [address], [place], [address], 8 06:06:21 TSH + free T4, serum 2017 018 ELIEZER Jernigan, [address], [place], [address], 8 06:06:20 testosteron e, free + total, serum 2017 018 [facility], [address], [address] [address], [place], [address], 8 06:06:20 HSV (1+2) DNA, qual, PCR, unspecified specimen 2017 018 [facility], [address] [facility] [address], [address], [place], [address], 8 06:06:35 urinalysis, dipstick 2017 018 naldo In-Office Order, Internal Use Only DO Not Attach Compendium DO Not Attach Compendium, Do Not Delete/merge, [id number] 8 11:56:55 test, urine 2017 018 [facility] In-Office Order, Internal Use Only DO Not Attach Compendium DO Not Attach Compendium, Do Not Delete/merge, [id number] 8 05:00:55 bacterial vaginosis + vaginitis panel, vaginal 2017 018 [facility], [address] [facility] [address], [address], [place], [address], 8 06:06:35 RPR (rapid plasma reagin), serum 2017 018 [facility], [address] [facility], [address], [place], [address], 8 06:07:23 hsv-2 (herpes simplex virus type 2) igg Ab, serum 2017 018 [facility], [address] [facility] [address], [address], [place], [address], 8 06:07:24 hepatitis panel (A+B+C), acute, serum 2017 018 [facility], [address], [address], [place], [address], 8 06:07:22 hepatitis B surface Ab, qualitative , serum 2017 018 [facility], [address] [facility] [address], [place], [address], 8 06:07:23 HIV 1+2 AB + HIV 1 p24 Ag, qualitative immunoassay , serum 2017 018 [facility], [address], [address], [address], 8 06:06:22 Referral None recorded. Procedures None recorded. Surgeries None recorded. Imaging US, pelvis, transabdomi nal + transvagina l [address] ([employer]), [address] [place], [address], 8 14:48:44 Medication Orders metformin 500 mg tablet 2017 018 [id number], [address] [place], [place], [id number], 8 11:17:23 Flagyl 500 mg tablet 2017 018 [facility][id number], [address] [place], [place], [id number], 8 11:17:31 Patient TargetsNo targets recorded. Patient Instructions Encounter Date Encounter Id Patient Instructions Last Modified By Organization Details Last Modified Time 12/09/[id number] When You Want to Lose Weight: Care Instructions [email or web address] Not available 12/09/2017 13:59:53 polycystic ovary syndrome: care instructions Not available 12/09/2017 10:45:37 bacterial vaginosis: care instructions [email or web address] Not available 12/09/2017 10:59:47 05/22/2018 [id number] When You Want to Lose Weight: Care [...] 05/22/2018 urina lysis , dipst ick Specific Novelty 1.030 Not Available In-Off ice Order Internal [...] 12/09/2017 urina lysis , dipst ick Specific Novelty 1.025 Not Available In-Off ice Order Internal [...] DO Not Attach Compendium, Do Not Delete/merge, [id number] 12/09/2017 10:14:50 12/10/19 18 12/10/2017 TSH + free T4, serum TSH 2.240 uIU/m L 0.450- 4.500 Not Available [facility] ([facility]) [address] [place], [address], 12/11/2017 06:06:20 12/10/19 18 12/10/2017 TSH + free T4, serum T4,free(dire ct) 1.29 NG/dL 0.93-1 .60 Not Available [facility] ([facility]) [address] [place], [address], 12/11/2017 06:06:20 12/10/19 18 12/10/2017 testo stero ne, free + total , serum testosterone , serum 27 NG/dL FEMAL E TANNE R STAGE 1 <3 - 6 2 <3 - 10 3 <3 - 24 4 <3 - 27 5 5 - 38 Not Available [facility] ([facility]) [address] [place], [address], 12/11/2017 06:06:20 12/10/19 18 12/11/2017 testo stero ne, free + total , serum free testosterone (direct) 4.1 pg/mL not estab. Not Available [facility] ([facility]) [address] [place], [address], 12/11/2017 06:06:20 12/10/19 18 12/10/2017 dhea- sulfa te, serum DHEA-sulfate 248.0 ug/dL 110.0- 433.2 Not Available [facility] ([facility]) [address] [place], [address], 12/11/2017 06:06:20 12/10/19 18 12/10/2017 prola ctin, serum prolactin 8.7 NG/mL 4.8-23 .3 Not Available [facility] ([facility]) [address] [facility], [place], [address], 12/11/2017 06:06:21 12/10/19 18 12/11/2017 HIV 1+2 AB + HIV 1 p24 Ag, quali tativ e immun oassa y, serum HIV screen 4TH generation wrfx NON REACTI VE non reacti ve Not Available [facility] ([facility]) [address] [place], [address], 12/11/2017 06:06:21 12/10/19 18 12/11/2017 hepat itis panel (A+B+ C), acute , serum hep A Ab, IgM NEGATI VE negati ve Not Available [facility] ([facility]) [address] [place], [address], 12/12/2017 06:07:22 12/10/19 18 12/11/2017 hepat itis panel (A+B+ C), acute , serum HBsAg screen NEGATI VE negati ve Not Available [facility] ([facility]) [address] [place], [address], 12/12/2017 06:07:22 12/10/19 18 12/11/2017 hepat itis panel (A+B+ C), acute , serum hep B core Ab, IgM NEGATI VE negati ve Not Available [facility] ([facility]) [address] [place], [address], 12/12/2017 06:07:22 12/10/1912/11/2017 hepat itis panel (A+B+ C), acute , serum hep C virus Ab <0.1 s/co_ ratio 0.0-0. 9 Negat alejandra: < 0.8 Indet ermin ate: 0.8 - 0.9 Posit alejandra: > 0.[address] [facility] recom mends that a posit alejandra HCV antib mariluz resul t be follo wed up with a HCV Nucle ic Acid Ampli ficat ion test (5507 13). Not Available [facility] ([facility]) [address] [place], [address], 12/12/2017 06:07:22 12/10/19 18 12/12/2017 RPR (rapi d plasm a reagi n), serum RPR NON REACTI VE non reacti ve Not Available [facility] ([facility]) [address] [facility], [place], [address], 12/12/2017 06:07:23 12/10/19 18 12/11/2017 hepat itis B surfa ce Ab, quali tativ e, serum hep B surface Ab, qual NON REACTI VE Non React alejandra: Incon siste nt with immun ity, less than 10 mIU/m L React alejandra: Consi stent with immun ity, great er than 9.9 mIU/m L Not Available [facility] ([facility]) [address] [facility], [place], [address], 12/12/2017 06:07:23 12/10/19 18 12/11/2017 hsv-2 (herp [...] yuriy to HSV-2 . Not Available [facility] ([facility]) [address] [facility], [place], [address], 12/12/2017 06:07:24 12/10/19 18 12/09/2017 pleas e note please note COMMEN T We have recei karly your reque st for addit ional testi ng or test verif icati on. You will be notif ied if we are unabl e to proce ss your reque st. Not Available [facility] ([facility]) [address] [facility], [place], [address], 12/12/2017 06:07:24 12/10/19 18 12/09/2017 writt en autho jailyn jain written authorizatio n KELLI T Juani en Autho jialyn jain Recei karly. Autho jailyn ion recei karly from [facility] 12-09 Logge d by Anmol Cooper Not Available [facility] ([facility]) [address] [facility], [place], [address], 12/12/2017 06:07:25 12/10/19 18 12/12/2017 bacte rial vagin osis + vagin itis panel , vagin al atopobium vaginae LOW - 0 score Not Available [facility] ([facility]) [address] [facility], [place], [address], 12/13/2017 06:06:35 12/10/19 18 12/12/2017 bacte rial vagin osis + vagin itis panel , vagin al bvab 2 LOW - 0 score Not Available [facility] ([facility]) [address] [facility], [place], [address], 12/13/2017 06:06:35 12/10/19 18 12/12/2017 bacte rial [...] is not neces gabriela. Not Available [facility] ([facility]) [address] [place], [address], 12/13/2017 06:06:35 12/10/19 18 12/12/2017 bacte rial vagin osis + vagin itis panel , vagin al royce albicans, TOM POSITI VE negati ve abnormal Not Available [facility] ([facility]) [address] [facility], [place], [address], 12/13/2017 06:06:35 12/10/19 18 12/12/2017 bacte rial [...] is not neces gabriela. Not Available [facility] ([facility]) [address] [facility], [place], [address], 12/13/2017 06:06:35 12/10/19 18 12/12/2017 bacte rial vagin osis + vagin itis panel , vagin al trich vag by TOM NEGATI VE negati ve Not Available [facility] ([facility]) [address] [place], [address], 12/13/2017 06:06:35 12/10/19 18 12/12/2017 bacte rial vagin osis + vagin itis panel , vagin al chlamydia trachomatis, TOM NEGATI VE negati ve Not Available [facility] ([facility]) [address] [place], [address], 12/13/2017 06:06:35 12/10/19 18 12/12/2017 bacte rial vagin osis + vagin itis panel , vagin al neisseria gonorrhoeae, TOM NEGATI VE negati ve Not Available [facility] ([facility]) [address] [place], [address], 12/13/2017 06:06:35 12/10/19 18 12/12/2017 HSV (1+2) DNA, qual, PCR, unspe cifie d speci men hsv 1 TOM NEGATI VE negati ve Not Available [facility] ([facility]) [address] [place], [address], 12/13/2017 06:06:35 12/10/19 18 12/12/2017 HSV (1+2) DNA, qual, PCR, unspe cifie d speci men hsv 2 TOM NEGATI VE negati ve Not Available [facility] ([facility]) [address] [place] [address], [address], 12/13/2017 06:06:35 03/31/20 18 04/01/2018 CT + NG + TV, DNA, urine /swab chlamydia by TOM NEGATI VE negati ve Not Available [facility] ([facility]) [address] [place] [address], [address], 04/02/2018 06:06:50 03/31/20 18 04/01/2018 CT + NG + TV, DNA, urine /swab gonococcus by TOM NEGATI VE negati ve Not Available [facility] ([facility]) [address] [place] [address], [address], 04/02/2018 06:06:50 03/31/20 18 04/01/2018 CT + NG + TV, DNA, urine /swab trich vag by TOM NEGATI VE negati ve Not Available [facility] ([facility]) [address] [place] [address], [address], 04/02/2018 06:06:50 08/07/20 18 08/08/2018 HCG, intac t + beta subun it, quant , serum or plasm a HCG,beta subunit,qnt, serum <1 mIU/m L Femal e (Non- pregn ant) 0 - 5 (Post menop ausal ) 0 - 8 Femal e (Preg nant) Weeks of Gesta tion 3 6 - 71 4 10 - 750 5 414 - 9230 6 634 - 95444 7 7757 -3363 63 8 64992 -2368 71 9 36156 -3501 10 10 29565 -5003 77 12 52515 -8045 12 14 22107 - 45095 15 84334 - 50011 16 0968 - 17865 17 0317 - 96965 18 8829 - 06452 Mars ECLIA metho dolog y Not Available [facility] ([facility]) [address] [facility], [place], [address], 08/08/2018 06:17:51 Result Notes None recorded. Problems Name Problem SNOMED Code Status Onset Date Resolution Date Notes Provider Name and Address Organization Details Recorded Time Depressive disorder 06839047 Active 2017 Yoseph Chandler MD Attn: Accounting, [address] [place], [address], [facility] 8 10:21:20 Vitamin deficiency 14096224 Active 2017 Yoseph Chandler MD Attn: Accounting, [address] [place], [address], [facility] 8 10:21:35 Problem Notes None recorded. Procedures Surgical History Date Name Laterality Status Provider Name and Address Organization Details Recorded Time Tonsillectomy completed Laney Salinas MA [facility] 12/09/2017 10:11:48 Imaging Results None recorded. Procedure Notes None recorded. Medical Equipment None Reported. Allergies Allergen ID Allergen Name Allergen Category Reaction Reaction Severity Criticality Documentation Date Start Date Code Code System Note Provider Name and Address Organization Details Recorded Time 245570 latex environme nt,medica tion itching severe Not available 12/09/2017 82229 91 RxNorm Not Available Not Available Not [...] Not Available Vitals Date Recorded Body height Body mass index (BMI) Body weight Provider Name and Address Organization Details Last Updated DateTime 12/09/2017 158.75 cm 38.2 kg/m2 23684.58 g Laney Salinas MA [facility] 12/09/2017 10:00:22 Date Recorded Systolic blood pressure Diastolic blood pressure Provider Name and Address Organization Details Last Updated DateTime 12/09/2017 134 mm[Hg] 82 mm[Hg] Kecia Jung MA [facility] 12/09/2017 12:12:44 Date Recorded Body height Body mass index (BMI) Body weight Systolic blood pressure Diastolic blood pressure Provider Name and Address Organization Details Last Updated DateTime 05/22/2018 158.75 cm 38.3 kg/m2 83670.17 g 106 mm[Hg] 60 mm[Hg] Laney Salinas MA [facility] 8 11:15:49 Social History Question Answer Notes LastModified by Organizat ion Details LastModified Time Tobacco Smoking Status Current Every Day Smoker Lane[facility] Salinas [facility] 12/09/2017 10:09:36 Do You Have An Advance [...] SNOMED-CT Code Diagnosis ICD10 Code Diagnosis Note [id number] Yoseph Chandler MD [facility] ([employer]) [address] [place] [address] 12/09/2017 09:26:44 12/09/2017 14:48:44 Gynecologic examination 57849258 Z01.411 Age appropriat e counseling done. Venereal d isease screening 309439265 Z11.3 Z20.2 Polycystic ovaries 57420 008 E28.2 counseled about different causes of irregular periods including PCOS. Counseled about insulin resistance , effect of insulin on androgens, menstrual periods, estrogen levels and its effect on EMT, breast, metabolic syndrome. Counseled About weight loss, diet and excercise. Bacterial vaginosis 4197 42696 N76.0 Counseled about it. Obese 429628748 E66.9 Counseled About weight loss, diet and excercise. Advised to see leather seasoner. Family theodore nning surveillance 872836114 Z30.09 Patient on nuvaring. She say she has enough refills. Counseled about it. [id number] MD Adeline Ortiz ([employer]ER) [facility] [place] [address] 05/22/2018 10:51:32 05/22/2018 11:44:43 Polycystic ovaries 28373578 E28.2 D/W patient lab work nuswab. Counseled about importance of continuing metformin and its side effects. Advised patient that if she has nausea that there is treatment for it. She said she will start metformin and if she has nausea she will call back. Also counseled about importance of doing TVUS and gave her a order copy. Obese 183216630 E66.9 Counseled About weight loss, diet and excercise. Advised to see leather seasoner. Health Concerns Section Related Observation LastModified by Organization Detai ls LastModified Time None Recorded Concern Status LastModified by Organization Details LastModified Time None Recorded Advance Directives Directive N: Payers Encounter Date Sequence Insurance Name Policy Number Policy Chong Covered Member ID Chong Member ID Guarantor Name 12/09/2017 1 [facility] PRIOR TO 03/01/2021 (MEDICAID REPLACEMENT - HMO) Eileen López [id number] 05/22/2018 1 [facility] PRIOR TO 03/01/2021 (MEDICAID REPLACEMENT - HMO) Eileen López [id number] Notes Date Note Type Note Provider Name [...] counter calcium treatment. Yoseph Chandler MD Attn: Accounting,[address] [place], [address], [facility] 12/09/2017 14:01:58 05/22/2018 text/html came for f/u on test results. she denies any abnormal vaginal bleeding, pelvic pain, vaginal discharge.Patient say she stopped metformin because she has minimal nausea. She say she did not do ultrasound. Yoseph Chandler MD Attn: Accounting,[address] [place], [address], [facility] 05/22/2018 12:27:33 OBGyn Episode No OBEpisode recorded.
--- OUTSIDE RECORDS SUMMARY | 2024-12-14 15:38 | XMS_ITS ---
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 Stress is when someone feels tense, nervous, anxious, or can\t sleep at night because their mind is troubled Very much In the past year have you sp ent more than 2 nights in a row in a chcf, retirement, skilled nursing center, or juvenile correctional facility? No Do you feel physically and e motionally safe where you currently live? Yes In the past year, have you b een afraid of your partner or ex-partner? No PRAPARE Score: 6 Tobacco Control (Standard) Question Answer Notes Tobacco use: Current every day smoker Additional Findings: Tobacco user e-cigarette Encounters Encounter Location Date Provider Diagnosis [address] [place] [address] 12/07/2024 Kristen Guerrero Plan Of Treatment No Information Progress Notes * Eileen ANTHONYDOB:2000 (24 yo F)Acc No.[id number]:12/07/2024 Patient: Eileen ESPINOSA :2000 A ge:24 Y S ex:Female Address:[address] [place] [address], [address] Subjective: * Chief Complaints: * P FRANCESCA Assessment * Medical History: * Surgical History: * Hospitalization/Major Diagno stic Procedure: * Social History: S ocial Determinants: P FRANCESCA D ate Completed/Updated: 0 12/06/2024, W hat is your current housing situation? I have housing, A re you worried about losing your housing? N o, W hat is the highest level of school that you have finished? H igh school diploma or GED, W hat is your current work situation? 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 Check all that apply I do not have problems meeting my needs, H as lack of transportation kept you from medical appointments, meetings, work or from getting things needed for daily living? N o,?How often do you see or talk to people that you care about and feel close to? (For example: talking to friends on the phone, visiting friends or family, going to yazdanism or club meetings) M ore than 5 times a week, H ow stressed are you? Stress is when someone feels tense, nervous, anxious, or can\t sleep at night because their mind is troubled V tanya much, I n the past year have you spent more than 2 nights in a row in a chcf, retirement, skilled nursing center, or juvenile correctional facility? N o, D o you feel physically and emotionally safe where you currently live? Y es, I n the past year, have you been afraid of your partner or ex-partner? N o, P RAPARE Score: 6 . T obacco Use: D ont use, Tobacco Use/Smoking A re you a c urrent smoker, H ow often do you smoke cigarettes? e very day, H ow many cigarettes a day do you smoke? 6 -10. T obacco Control (Standard) T obacco use: C urrent every day smoker, A dditional Findings: Tobacco user e -cigarette. * Medications: Objective: * Vitals: * Physical Examination: Assessment: Plan: * Treatment: * Procedure Codes: * true * Date: Generated for Carlos brown/Macy/Monika on: 0 12/14/2024 03:38 PM CDT
== END 2024-12-14 14:27 | disposition home or self-care (01) ==
PROVIDERS: Visit Provider Orthopaedic Surgery
DX: M25.562 Pain in left knee (principal)
CPT/HCPCS: 73721

== ENCOUNTER 2025-08-27 12:54 | Emergency (ER) | payer OTHER, SELFPAY ==
--- NOTE | ~2025-08-27 | XR_ITS ---
EXAMINATION: XR chest 2V DATE: 08/27/2025 16:28 INDICATION: Wheezing. Cough TECHNIQUE: Frontal and lateral views of the chest were obtained. COMPARISON: Chest x-ray dated 01/01/2021 FINDINGS: Heart size is normal. Lungs are clear. Rohini and mediastinum are normal. IMPRESSION: 1. No acute findings. Reviewed, dictated and finalized at location T. THETICS ASSISTANT IMPRESSION: 1. No acute findings.
--- OUTSIDE RECORDS SUMMARY | 2025-08-27 12:56 | XMS_ITS | Clinical Summary ---
Author Organization [facility] Address [address] [place] [address] Care Team Providers Care Kraft Digester Operator Name Role Phone Karina Dey MD Primary Care Provider [phone] Allergies Active Allergy Reactions Criticality Noted Date [...] on file Legal Sex Female 11:01 AM INFRASTRUCTURE TECHNICIAN Gender Identity Not on file Sexual Orientation Not on file Last Filed Vital Signs Vital Sign Reading Time Taken Comments Blood Pressure 118/62 11/09/2024 2:41 PM CDT Pulse 68 11/09/2024 2:41 PM CDT Temperature 36.7 C (98.1 F) 08/02/2021 11:28 AM INFRASTRUCTURE TECHNICIAN Respiratory Rate 16 08/02/2021 11:28 AM INFRASTRUCTURE TECHNICIAN Oxygen Saturation 99% 11/09/2024 2:41 PM CDT Inhaled Oxygen Concentration - - Weight 105.2 kg (232 lb) 11/09/2024 2:41 PM CDT Height 160 cm (5' 2.99) 11/09/2024 2:41 PM CDT Body Mass Index 41.11 11/09/2024 2:41 PM CDT Plan of Treatment Health Maintenance Due Date Last Done Comments Cervical Cancer Screening 2000 Depression Screening 2000 Hepatitis C Screening 2000 Regular Well Visit/Exam 18-64 2016 Pneumococcal vaccine <65 (1 of 2 - PCV) 2017 Covid-19 Vaccine (3 - 2024-2 6 season) 2025 03/11/2021, 02/18/2021 Influenza Vaccine (#1) 2025 7, 05/15/2012, 06/20/2011, Additional history exists DTaP/Tdap/Td Vaccine (7 - Td or Tdap) 06/06/2027 06/06/2017, 07/20/2002, 06/08/2002, Additional history exists Hepatitis B Screening Completed 2000 , [birth year] HPV Vaccines Completed 06/06/2017, 04/02, 02/14/2009 Varicella Vaccines Completed 06/06/2017, 03/13/[address] [place] [place] [id number] [facility] [address] [facility] [address] [place] [id number] [facility] Care Teams Kraft Digester Operator Relationship Specialty Start Date End Date Karina Dey MD [address] [place] [address] [place] [address] PCP - General Family Medicine 03/14/22
--- OUTSIDE RECORDS SUMMARY | 2025-08-27 12:56 | XMS_ITS ---
Patient Health Record Created on: August 27, 2025 Eileen López .9q5kg : 2000 Sex: Female Author Organization [facility] Address [address] [place] [address] Phone [phone] Care Team Providers Care Station Baggage Agent Name Role Phone Kristen Guerrero Primary Care Provider [phone] Karen Duke Unavailable [phone] Zuleyma Faustin Unavailable [phone] Allergies Allergen (clinical drug ingredient) Drug/Non Drug Allergy documented on EMR Reaction Allergy Type Onset Date Status Lemon Juice LEMON JUICE (uncoded) HIVES Allergy Active BuSpar SICK Drug Allergy Active escitalopram Lexapro nausea and vomiting Drug Allergy Active Reason For Referral Referral Date 07/06/2025 Referral Status Open Reason ASD screening Diagnosis 1 Mood disorder (F39) Referral Organization [facility] Referring Provider First Name Kristen Referring Provider Last Name Cesar Referring Provider Speciality Psychiatry Referred Provider [facility] Referred Provider Specialty Mental healt counseling General Notes Kristen Guerrero 12/2024 03:08:20 PM > Reports that she gets stuck on things and hyper-fixates. Trouble with fabrics, textures, feeling hypervigilant but also unfocused. In social situations: I talk a lot if there is only a couple people, but if there is a lot of people then I want to hide. I cannot do crowds. If there is any moods outside of happy, I freak out and don't know what to do. I can freak out because I cannot keep my emotions in check, so I cry a lot with that. I have so much I start then don't finish, little projects. States is having tics often of making a sound I heard that was stuck in my head. Missing social cues., Juliana Rodriguez RN 07/14/2025 11:21:54 AM > Nurse completed referral and faxed to [facility]., Carla Dorantes 07/14/2025 02:07:06 PM > Pt called and LVM stating [facility] called her and explained she would have to pay out of pocket and then file a claim with her insurance to get reimbursed for any services completed. Told her we will attempt to find another place and that it is a possibility she will need to travel. She agreed and stated she would do an over the phone evaluation if possible. She is very overwhelmed and frantic about this situation. MA is going to work with pt to find new establishment., Juliana Rodriguez RN 07/19/2025 11:27:36 AM > Client stated that she called her insurance and she is going to call around and will call back., Juliana Rodriguez RN 08/08/2025 01:41:08 PM > Nurse contacted client. Client stated that she found a walk in ([facility]) in [place]. They take her insurance and does not need a referral at this time. Clinical Notes [facility] , [address] , [place] [address] , phone, fax Referral Priority Routine Medications Medication SIG (Take, Route, Frequency, Duration) Notes Start Date End Date Diagnosis (ICD Code) Status Zofran Active Vitamin D (Ergocalciferol) 1.25 MG (68426 UT) Capsule TAKE 1 CAPSULE BY MOUTH ONCE A WEEK; Duration: 28 Mood disorder (ICD_10 - F39) Active Lisdexamfetamine Dimesylate 20 MG Capsule 1 capsule in the morning Orally Once a day; Duration: 15 days 08/02/2025 ADHD (attention deficit hyperactivity disorder) (ICD_10 - F90.9) Active EnilloRing 0.12-0.015 MG/24HR Ring Vaginal; Duration: 84 Days Active Diclofenac Sodium 75 MG Tablet Delayed Release TAKE 1 TABLET BY MOUTH TWICE DAILY WITH FOOD NEEDED FOR PAIN Oral; Duration: 15 Days Active Sertraline HCl 25 MG Tablet 1 tablet Orally Once a day; Duration: 30 days Mood disorder (ICD_10 - F39) Active Cyclobenzaprine HCl 10 MG Tablet Oral; Duration: 15 Days Active Social History Tobacco Use: Social History Observation Description Date Details (start date - stop date) Current Smoker NA - NA Sex Observation Social History Observation Description Sex Observation Female SDOH Assessments Date Tool Assessment Assessment LOINC Value Assessment Notes Goals Interventions 12/08/19 25 PRAPARE (LOINC: 41067-3) Total Score: 6 Date Completed/Upda yuriy: 12/07/19 25 What is your current housing situation? 95191-5 I have housing (QB92249-2) Are you worried about losing your housing? 32962-5 No (LA32-8) What is the highest level of school that you have finished? 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 Check all that apply 87148-6 I do not have problems meeting my needs Has lack of transportation k ept you from medical appointments, meetings, work or from getting things needed for daily living? 09392-1 No (LA32-8) How often do you see or talk to people that you care about and feel close to? (For example: talking to friends on the phone, visiting friends or family, going to zoroastrian or club meetings) 17092-0 More than 5 times a week (MN00802-8) How stressed are you? Stress is when someone feels tense, nervous, anxious, or can\t sleep at night because their mind is troubled 07899-7 Very much (OS15388-4) In the past year have you sp ent more than 2 nights in a row in a fdc, group home, prison center, or juvenile correctional facility? 30179-2 No (LA32-8) Do you feel physically and emotionally safe where you currently live? 75197-6 Yes (LA33-6) In the past year, have you b een afraid of your partner or ex-partner? 14424-5 No (LA32-8) PRAPARE Score: 6 Social History Social Determinants Social Info Question Answer Notes PRAPARE Date Completed/Updated: 12/06/2024 What is your current housing situation? I have h ousing Are you worried about losing your housing? No What is the highest level of school that you have finished? 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 Stress is when someone feels tense, nervous, anxious, or can\t sleep at night because their mind is troubled Very much In the past year have you sp ent more than 2 nights in a row in a fdc, group home, prison center, or juvenile correctional facility? No Do you feel physically and e motionally safe where you currently live? Yes In the past year, have you b een afraid of your partner or ex-partner? No PRAPARE Score: 6 Miscellaneous Social Info Question Answer Notes Method of learning: Preferred method of learning: Read ing,Demonstration Primary Social History Social Info Question Answer Notes Living Arrangement Living Arrangement: Independent Nicky ing Is this a supportive environment? Yes Employment Status Employment Status: Employed [employer] Illicit Substance Usage Illicit Substance Usage: Yes Substance Used: Cannabis Interested in quitting: No Alcohol Use Alcohol Use Frequency: Never Tobacco Use: Social Info Question Answer Notes Dont use, Tobacco Use/Smoking Are you a current smo ker How often do you smoke cigarettes? every day How many cigarettes a day do you smoke? 6-10 Tobacco Control (Standard) Tobacco use: Current every day smoker Additional Findings: Tobacco user e-cigarette Section Notes: PRESCRIPTION # FILLED WRITTEN DRUG LABEL QTY DAYS STRENGTH MME PRESCRIBER PHARMACY REFILL NO. REFILLS STATE 04/16/2023 04/16/2023 ALPRAZolam 90.0 30 0.5 MG NA Karina Gudino Md [id number] [id number], [place], [place] NA 0 [place] 1 [id number] 03/20/2023 03/20/2023 ALPRAZolam 90.0 30 0.5 MG NA Karina Gudino Md [id number] [id number], [place], [place] NA 0 [place] 1 [id number] 02/18/2023 02/17/2023 ALPRAZolam 90.0 30 0.5 MG NA Karina Gudino Md [id number] [id number], [place], [place] NA 0 [place] 1 [id number] 01/18/2023 01/14/2023 ALPRAZolam 90.0 30 0.5 MG NA Karina Gudino Md [id number] [facility]vs/p Problems Problem Type SNOMED Code ICD Code Dates Problem Status W/U Status Risk Notes Problem Tobacco user (131339730) Nicotine dependence, unspecified, uncomplicated (F17.200) Added On:09/09 Active confirmed Problem Borderline personality disorder (94118330) Borderline personality disorder (F60.3) Added On:03/19 Active confirmed Problem Mood disorder (90889448) Mood disorder (F39) Added On:01/31 Active confirmed Problem Attention deficit hyperactivity disorder (244804432) ADHD (attention deficit hyperactivity disorder) (F90.9) Added On:08/02 Active confirmed hx of ADHD as a child; self-repor ting scale positive 08/02/25 Problem Nicotine dependence (90879948) Nicotine dependence (F17.200) Added On:10/29 Active confirmed Encounters Date Time Type Facility Location Provider Diagnosis 025 12:30 PM Office Visit [facility] [address] [place] [address] Zuleyma Faustin Borderline personality disorder F60.3 025 02:00 PM Office Visit [facility] [place] [address] Zuleyma Faustin Borderline personality disorder F60.3 025 02:00 PM Office Visit [facility] [place] [address] Zuleyma Faustin Borderline personality disorder F60.3 025 02:00 PM Office Visit [facility] [place] [address] Zuleyma Faustin Borderline personality disorder F60.3 025 03:00 PM Telehealth Office Visit, Est Pt., Level 4 (64277) [address] [place] [address] Kristen Guerrero Borderline personality disorder F60.3 and Post depression F53.0 025 02:00 PM Telehealth Office Visit, Est Pt., Level 4 (43550) [address] [place] [address] Kristen Guerrero Mood disorder F39 025 11:00 AM Telehealth Office Visit, Est Pt., Level 4 (39406) [facility] [address] [place] [address] Kristen Guerrero Mood disorder F39 and ADHD (attention deficit hyperactivity disorder) F90.9 025 02:31 PM Telephone Encounter [address] [place] [address] Kristen Guerrero 025 01:45 PM Telephone Encounter [facility] [address] [place] [address] Karen Duke 025 08:13 AM Telephone Encounter [facility] [address] [address] Kristen Guerrero Post depression F53.0 025 09:46 AM Telephone Encounter [address] [place] [address] Kristen Guerrero 025 04:02 PM Telephone Encounter [facility] [address] [place] [address] Kristen Guerrero 025 08:41 AM Telephone Encounter [address] [address] Kristen Guerrero Mood disorder F39 025 01:42 PM Telephone Encounter [facility] [address] [place] [address] Kristen Guerrero 025 11:59 AM Telephone Encounter [address] [address] Kristen Guerrero Assessments Encounter Date Diagnosis (ICD Code) Assessment Notes Treatment Notes Section Notes 09/16/2024 Borderline personality disorder (ICD-10 - F60.3) 09/30/2024 Borderline personality disorder (ICD-10 - F60.3) 10/07/2024 Borderline personality disorder (ICD-10 - F60.3) 11/10/2024 Borderline personality disorder (ICD-10 - F60.3) Client to call to get started back in therapy. 09/03/2024 Borderline personality disorder (ICD-10 - F60.3) 07/21/2025 Mood disorder (ICD-10 - F39) 08/02/2025 Mood disorder (ICD-10 - F39) R/O BPD vs Bipolarity; depression needs further assessment due to limitations on insight. 07/06/2025 Mood disorder (ICD-10 - F39) R/O BPD vs Bipolarity; depression needs further assessment due to limitations on insight. Start Caplyta. Take as prescribed. Reviewed purpose (mood stability), benefits, and risks - low blood pressure, metabolic syndrome with high cholesterol or high blood sugars, change in cardiac conduction, nausea, vomiting, temporary or permanent movement disorders, and akathisia. For females: explained that no medication can be guaranteed to be 100% safe for baby or mother. 11/04/2024 Post depression (ICD-10 - F53.0) 11/10/2024 Post depression (ICD-10 - F53.0) 08/02/2025 ADHD (attention deficit hyperactivity disorder) (ICD-10 - F90.9) hx of ADHD as a child; self-reporting scale positive 08/02/25 Begin Vyvanse. Take as prescribed. Reviewed purpose (improve attention and focus and decrease eating binges), benefits, and risks including high heart rate, high blood pressure, and increased anxiety. Patient cautioned that ADHD medications have been associated with an increased risk of cardiovascular disease, especially hypertension and arterial disease. Medications may need to be tapered down or even stopped based on cardiovascular parameters. Refer to package/pharmacy insert for a full listing of side effects. 11/10/2024 Other Reasons, potential benefits, potential risks, [...] May also contact the 24-hour crisis hotline ([facility]), refer to the closest emergency room or [...] up. This session was completed telephonically with client/parental/nisha n consent: Unable to determine movement status, assess appearance, affect, AIMS, or vital signs. 07/06/2025 Other Continue therapy Strong symptoms suggestive of ASD, referral placed for further insight. Reasons, potential benefits, potential risks, interactions and [...] May also contact the 24-hour crisis hotline ([facility]), refer to the closest emergency room or [...] up. This session was completed telephonically with client/parental/nisha n consent: Unable to determine movement status, assess appearance, affect, AIMS, or vital signs. 08/02/2025 Other Reasons, potential benefits, potential risks, interactions [...] May also contact the 24-hour crisis hotline ([facility]), refer to the closest emergency room or [...] up. This session was completed telephonically with client/parental/nisha n consent: Unable to determine movement status, assess appearance, affect, AIMS, or vital signs. Plan Of Treatment Future Test Test Name Order Date 14 Panel Urine Drug Screen 08/12/2025 Next Appt Details Provider Name:Kristen robbins, 08/30/2025 09:00:00 AM, [address], [place], [address], Insurance Providers Payer Name Payer Address Payer Phone Subscriber Number Group Number Insured Name Patient Relationship to Insured Coverage Start Date Coverage End Date [facility] Attn Claims Department [address] [place] [address] [phone] [id number] Eileen López Self - patient is the insured 1 [employer] Attn Claims Department [address] [place] [address] [phone] [id number] Eileen López Self - patient is the insured 1 [employer] Att[employer] Claims Department [address] [place] [phone] [id number] Eileen López Self - patient is the insured 1 [employer] Attn Claims Department [address] [place] [address] [phone] [id number] Eileen López Self - patient is the insured 1 [employer] Tele[employer] Attn Claims Department [address] [place] [phone] [id number] Eileen López Self - patient is the insured 3 Medical (General) History Medical History History ICD Code borderline personality disorder Post depression F53.0 Surgical History Surgery Date(Month/Year) tonsillectomy and adenoidectomy Hospitalization History Reason Date(Month/Year) childbirth michele Marinelli [facility]
--- OUTSIDE RECORDS SUMMARY | 2025-08-27 12:56 | XMS_ITS | Clinical Summary ---
Author Organization [facility] Address [address] [place] [address] Care Team Providers Care Supervisor Concrete Stone Finishing Name Role Phone Karina Warren MD Primary Care Provider [phone] Allergies Active Allergy Reactions Criticality Noted Date [...] 9:37 PM CDT Height 160 cm (5' 3) 04/03/2022 2:59 PM CDT Body Mass Index 40.03 07/05/2021 9:37 PM CDT Plan of Treatment Health Maintenance Due Date Last Done Comments Cervical Cancer Screening Pap Smear (Age 21 to 29) Every 3 Years 1998 Cervical Cancer Screening 2000 Annual Physical 2001 DTaP, Tdap and Td Vaccines (6 - Tdap) 2009 07/20/2002, 06/08/2002, 03/13/1999, Additional history exists Hepatitis C 2016 Hepatitis B Vaccines (1 of 3 - 19+ 3-dose series) 2017 Pneumococcal Vaccine: Pediatrics (0 to 5 Years) and At-Risk Patients (6 to 49 Years) (1 of 2 - PCV) 2017 COVID-19 Vaccine ( season) 2025 Influenza Adult (#1) 2025 Meningococcal Vaccine Completed 04/18/2015 HPV Vaccines Completed 06/06/2017, 04/02, 02/14/2009 Hepatitis A Vaccines Aged Out No long er eligible based on patient's age to complete this topic Meningococcal B Vaccine Aged Out No l onger eligible based on patient's age to complete this topic RSV Immunizations Under 20 Months Aged Out No longer eligible based on patient's age to complete this topic [place] [address] [address] [place] [address] Care Teams Supervisor Concrete Stone Finishing Relationship Specialty Start Date End Date Karina Warren MD [address] [place] [address] PCP - General FAMILY PRACTICE 04/03/22
--- OUTSIDE RECORDS SUMMARY | 2025-08-27 12:57 | XMS_ITS | Data Portability ---
Author Organization [place] - [facility] [employer] [facility], Main Office Address [address] [place] [address] Care Team Providers Care Timber Faller Name Role Phone TODD SANCHEZ Primary Care Provider TODD SANCHEZ Referring Provider Assessment Encounter Date Assessment Date Assessment LastModified by Organization Details LastModified Time 01/26/2025 01/26/2025 24-year-old female presents for follow-up of her left knee. She reports worsening symptoms, currently rates her pain 7/10. She still has lot of pressure behind her kneecap and in the anterior aspect of the knee. She gets popping in the knee as well, although no locking. She is still taking meloxicam. She finished her Medrol Dosepak and is also using ice and THC rub. She has tenderness over the anterior tibia and patellar insertion. Range motion 0-130. Stable ligaments. Previous MRI demonstrates stress reaction and edema in the anterior tibia Given her persistent symptoms, we will continue conservative management with crutches and touchdown weight-bearing, we will also send her physical therapy with a can do modalities such as stem or ultrasound to try to get some improvement with that. We will also send her to pain management to see if they can offer her any other options. We will restrict her to sitting and standing work only, as she reports increase in pain with ambulation and activities. We will see her back in 6 weeks for recheck. She is in agreement with the plan. [email or web address] Not available 01/26/2025 12:00:05 2025 2025 25-year-old patient presents today for follow-up of left knee pain and new problem of right knee pain. She states the left knee is feeling better. She has been attending physical therapy which worked well for her. She is no longer ambulating with the crutches. She has an appointment with pain management on the of this month. She states that yesterday she woke up with pain in the right knee. She also was experiencing some swelling and popping. she believes she hit it on a coffee table when she was sleeping. She states that today in therapy they worked on bilateral knees. Imaging: X-rays reviewed of the right knee show no acute bony abnormality, no fracture. Preserved joint spaces. Physical exam: Tenderness to palpation along lateral joint line of right knee. Mild effusion. No issues with range of motion. Stable ligaments. Sensation intact. We discussed that for bilateral knees we will have her continue with therapy exercises on her own. We will still have her visit with pain management. We will see her back as needed for pain. She is in agreement with this plan. [email or web address] Not available 2025 15:03:38 Plan of Treatment Reminders Order Date Submit Date Provider Last Modified By Organization Details Last Modified Time Details Appointments None recorded. Lab vitamin B12 + folate, serum or blood [address] [facility] (Lab), [address] [place], [address], 13:57:19 iron + total iron-walter ng capacity (TIBC), serum [address] (Lab), [address] [place], [address], 10:41:11 vitamin D3, 25-hydroxy , serum [address] (Lab), [address] [place], [address], 10:41:11 Referral physical therapist referral - Please schedule pt for L knee. Stim/US Thanks [address] [facility], [address], [place], [address], 15:29:28 pain management referral - Please contact pt to schedule apt. Thanks.... imaging done at our office is in physicians dictation 2024 [facility], [address], [place], [address], 15:32:41 Procedures None recorded. Surgeries None recorded. Imaging XR, knee 2024 [facility], [address], [place], [address], 14:23:24 Medication Orders cetirizine 10 mg tablet 2024 [id number], [address] [facility], [place], [place], [id number], 15:57:13 Qulipta 60 mg tablet 2024 [facility]93013, [address] [facility], [place], [place], [id number], 15:57:15 clotrimazo le-betamet hasone 1 %-0.05 % topical cream 2024 [facility]305, [address] [facility], [place], [place], [id number], 15:57:15 ciprofloxa [place] 0.3 %-dexameth asone 0.1 % ear drops,susp ension 2024 [address] [facility], [address] [facility], [place], [place], [id number], 15:45:16 meloxicam 15 mg tablet 2024 025 [facility], [address] [facility], [place], [place], [id number], 5 12:26:15 Patient TargetsNo targets recorded. Patient InstructionsNo instructions recorded. Reason for Referral Physical Therapist Referral for Pain of left knee joint L knee Please schedule pt for L knee. Stim/US Thanks Referring Physician: Han Ambrosio, Orthopedic Surgery, Encounter Date: 01/26/2025 Pain Management Referral for Pain of left knee joint Please contact pt to schedule apt. Thanks....imaging done at our office is in physicians dictation Referring Physician: Han Ambrosio, Orthopedic Surgery, Encounter Date: 01/26/2025 Results Created Date Observation Date Name Description Value Unit Range Abnormal Flag Note LastModifiedBy Organization Detail LastModifiedTime 03/09/20 25 XR, knee No observ ation record ed. [email or web address] [facility] [place] [address] [facility] [address], [place], [address], 2025 09:46:40 Result Notes None recorded. Problems Name Problem SNOMED Code Status Onset Date Resolution Date Notes Provider Name and Address Organization Details Recorded Time Injury of ankle 080267583 Completed 03/16/2024 MILLI Nelson [address] [facility], [facility] [address], [place], [address] , [place] [employer] 4 14:22:22 Pain in pelvis 28724226 Active Not Available [employer] 3 15:35:49 Pain in limb 79561240 Active Not Available [employer] 3 15:35:49 Diverticu lar disease 764815671 Active 2016 Not Available [employer] 3 15:35:49 Migraine 76838249 Active 2022 Not Available [employer] 3 15:35:49 Nausea and vomiting 68523755 Active 2022 Not Available [employer] 3 15:35:49 Morbid obesity 079159651 Active 2022 Not Available [employer] 3 15:35:49 Anxiety 03676217 Active 2022 Not Available [facility] 3 15:35:49 Labyrinth itis 56665567 Active 2022 Not Available [facility] 3 15:35:49 Injury of right knee 98761655181 348396 Completed 202203/16/2024 MILLI Nelson [address], [address], [place], [address] , [employer] [facility] 4 14:24:11 Injury of left knee 72119128204 4106 Active 2022 Not Available [facility] 3 15:35:49 Fatigue 45852561 Active 2022 Not Available [facility] 3 15:35:49 Iliotibia l band friction syndrome of left knee 03801240279 9102 Completed 202203/16/2024 MILLI Nelson [address], [address], [place], [address] , [employer] 4 14:22:19 Rib pain 093963346 Active 2022 Not Available [facility] 3 15:35:49 Fracture of tibial plateau 459080199 Completed 202203/16/[address], [address], [place], [address] , [employer] [facility] 4 14:22:09 Pain of left knee joint 70500611453 4107 Active 2022 Teresa Britt, Ila null, [employer] [facility] 5 10:53:48 Closed fracture of tibial plateau 574266180 Active 2022 Not Available [facility] 3 15:35:49 Hyperemes is gravidaru m 27267398 Completed 202203/16/2024 MILLI Nelson [address], [address], [place], [address] , [employer] 4 14:22:13 Paronychi a of toe of right foot 65530257389 718849 Active 2023 MILLI Nelson [address], [address], [place], [address] , [facility] 4 10:18:38 Carpal tunnel syndrome of right wrist 77403914384 9108 Active 2023 MILLI Nelson [address], [address], [place], [address] , [facility] 4 10:19:21 Bronchiti s 25371745 Active 2023 MILLI Nelson [address], [address], [place], [address] , [facility] 4 14:29:21 Plantar wart of right foot 93423240086 025026 Active 2023 MILLI Nelson [address], [address], [place], [address] , [facility] 4 14:54:06 Pain of right hip joint 25065908346 9102 Active 2023 Lio Mazariegos MD [address], [address], [place], [address] , [facility] 4 14:50:24 Sprain of right hip 92907262866 528340 Active 2023 Lio Mazariegos MD [address], [address], [place], [address] , [facility] 4 14:51:01 Obesity 159227833 Active 2023 Lio Mazariegos MD [address], [address], [place], [address] , [facility] 4 14:57:57 Abscess of skin and/or subcutane ous tissue 19187689 Active 2023 MILLI Nelson [address], [address], [place], [address] , [employer] 4 15:45:00 Low back pain 857729177 Active 2023 MILLI Nelson [address], [address], [place], [address] , [employer] 4 15:47:46 Dizziness 552493657 Active 2024 MILLI Nelson [address] [facility], [address], [place], [address] , [employer] 5 11:30:21 Amenorrhe a 18585873 Active 2024 MILLI Nelson [address], [address], [place], [address] , [employer] 5 11:32:23 Vitamin D deficienc y 77204338 Active 2024 MILLI Nelson [address] [facility], [address] [facility], [place], [address] , [employer] 5 17:09:13 Seasonal allergic rhinitis 752447271 Active 2024 MILLI Nelson [address] [facility], [address] [address], [place], [address] , [employer] 5 16:28:36 Continuou s nondepend ent harmful pattern of use of cannabis 282872998 Active 2024 MILLI Nelson [address] [facility], [address], [place], [address] , [employer] 5 16:37:01 Cannabis hyperemes is syndrome due to Cannabis dependenc e 20859074874 574384 Active 2024 MILLI Nelson [address], [address], [place], [address] , [employer] 5 16:37:29 Paresthes ia of hand 902982947 Active 2024 MILLI Nelson [address], [address], [place], [address] , [employer] 5 16:55:31 Pain of bilateral knee regions 54312308984 4102 Active 2024 Teresa Lorenza, RMA null, [place] [employer] [facility] [employer] 5 09:46:10 Candidias is of vagina 78906052 Active 2024 MILLI Nelson [address], [address], [place], [address] , [employer] 5 14:11:16 Acute otitis externa of right ear 31105725276 37641 Active 2024 MILLI Nelson [address], [address], [place], [address] , [employer] 5 12:41:17 Tinea pedis 0731900 Active 2024 MILLI Nelson [address], [address], [place], [address] , [employer] 5 15:55:44 Dysfuncti on of bilateral eustachia n tubes 97091995775 02768 Active 2024 MILLI Nelson [address], [address], [place], [address] , [employer] 5 15:56:20 Problem Notes None recorded. Procedures Surgical History Date Name Laterality Status Provider Name and Address Organization Details Recorded Time 5 Cerumen Removal completed MILLI Nelson [address], [place], [address], [address] [employer] 06/29/2025 12:54:52 4 Cryosurgery Warts/Skin Tags completed MILLI Nelson [address], [address], [place], [address], [employer] 03/16/2024 14:52:35 Imaging Results None recorded. Procedure Notes None recorded. Medical Equipment None Reported. Allergies Allergen ID Allergen Name Allergen Category Reaction Reaction Severity Criticality Documentation Date Start Date Code Code System Note Provider Name and Address Organization Details Recorded Time 68543 Buspar medicatio n nausea vomiting Not available Not available Not available 10/30/2022 48553 0 RxNorm Not Available [facility] 3 07:34:58 44114 clonidine medicatio n Not available Not available Not available 01/13/2024 2599 RxNorm Wilma Richards RN null, [facility] 4 09:50:27 36732 lorazepam medicatio n Not available Not available Not available 07/27/2024 6470 RxNorm JOSE Ron, [facility] 4 15:27:59 01507 buspirone medicatio n vomiting Not available Not available 08/09/20252020 1827 RxNorm Not Available [employer] 5 04:05:15 42646 lemon allergeni c extract food,medi cation hives Not available Not available 08/09/20252020 67306 2 RxNorm Not Available [employer] 5 04:05:15 38404 lemon oil food,medi cation rash Not available [employer] 08/09/20252020 28776 53 RxNorm Not Available [employer] 5 04:05:18 72801 lemon juice food Not available Not available Not available 08/09/2025 47704 55 RxNorm unrec ogniz ed react ion (text : HIVES , code: [id number]) (from exter nal sourc e) Not Available [employer] 5 04:05:46 76439 escitalop kin Not available Not available Not available Not available 08/09/2025 79528 8 RxNorm Not Available [employer] 5 04:05:46 Medications Name Sig Start Date Stop Date [...] 1 tablet every day by oral route for allergies 2024 active Not Available Not Available Not Avai lable azithromyci n 250 mg tablet TAKE 2 [...] Available fluconazole 150 mg tablet Take 1 tab now, repeat in 72 hrs if needed 06/29 completed Not Available Not Available Not Available sumatriptan 100 mg tablet Take 1 tab at first sign of migraine, repeat in 2 hrs if needed 11/16 completed Not Available Not Available Not Available ondansetron HCl 8 mg tablet Take 1 tablet every 8 hours by oral route prn 03/05 completed Not Available Not Available Not Available meloxicam 15 mg tablet Take 1 tablet every day by oral route as needed for 30 days. 06/29 completed Not Available Not Available Not Available metronidazo le 0.75 % (37.5 mg/5 gram) vaginal gel INSERT 1 APPLICATO RFUL VAGINALLY EVERY DAY AT BEDTIME FOR 5 DAYS 06/19 completed Not Available Not Available Not Available ondansetron HCl 4 mg tablet TAKE 1 TABLET BY MOUTH EVERY 8 HOURS 03/21 completed Not Available Not Available Not Available famotidine 40 mg tablet TAKE 1 TABLET BY MOUTH EVERY DAY AT BEDTIME 06/29 completed Not Available Not Available Not Available [...] Not Available Not Available No t Available clotrimazol e-betametha sone 1 %-0.05 % topical cream Apply by topical route for 20 days. active Not Available Not Available No [...] Not Available Not Available No t Available diclofenac sodium 75 mg tablet,aster yed release Take 1 tablet twice a day by oral route with food as needed for pain. 09/24 completed Not Available Not Available Not Available ergocalcife rol (vitamin D2) 1,250 mcg (50,000 unit) capsule TAKE 1 CAPSULE BY MOUTH 1 TIME EVERY WEEK 2024 active Not Available Not Available [...] 4 mg tablets in a dose pack FOLLOW PACKAGE DIRECTION S 02/17 completed Not Available Not Available Not Available [...] 8 HOURS NEEDED FOR NAUSEA OR VOMITING 02/17 completed Not Available Not Available Not Available fluoxetine 20 mg capsule TAKE 1 CAPSULE BY MOUTH DAILY 03/16 completed Not Available Not Available Not Available clotrimazol e 1 % topical cream APPLY TO THE AFFECTED AND SURROUNDI NG AREAS OF SKIN BY TOPICAL ROUTE 2 TIMES PER DAY IN THE MORNING AND EVENING 2024 active Not Available Not Available Not Avai lable sertraline 50 mg tablet TAKE 1 TABLET BY MOUTH DAILY 06/29 completed Not Available Not Available Not Available medroxyprog esterone 150 mg/mL intramuscul ar [...] completed Not Available Not Available Not Available etonogestre l 0.12 mg-ethinyl estradiol 0.015 mg/24 hr vaginal ring USE ONE RING PER VAGINA MONTHLY DIRECTED active Not Available Not Available No t Available escitalopra m 20 mg tablet Take [...] completed Not Available Not Available Not Available ciprofloxac in 0.3 %-dexametha sone 0.1 % ear drops,suspe nsion INSTILL 4 DROPS INTO AFFECTED EAR(S) BY OTIC ROUTE 2 TIMES PER DAY FOR 7 DAYS 08/09 completed Not Available Not Available Not Available [...] completed Not Available Not Available Not Available Vyvanse 20 mg capsule TAKE 1 CAPSULE BY MOUTH DAILY IN THE MORNING active Not Available Not Available No t Available diclofenac 1 % topical gel APPLY 2 GRAMS TO THE AFFECTED AREA(S) BY TOPICAL ROUTE 4 TIMES PER DAY 03/16 completed Not Available Not Available Not Available butalbital- acetaminoph en-caffeine 50 mg-300 mg-40 mg capsule TAKE 1-2 CAPSULES BY MOUTH EVERY 4 HOURS NEEDED FOR HEADACHE 03/16 completed Not Available Not Available Not Available dexmethylph enidate ER 40 mg capsule,ext ended release [id number] 06/05 completed Not Available Not Available [...] Available Not Available Qulipta 60 mg tablet Take 1 tablet every day by oral route as directed for 30 days. 2024 active Not Available Not Available Not Avai lable Caplyta 21 mg capsule TAKE 1 CAPSULE BY MOUTH DAILY 08/09 completed Not Available Not Available Not Available Vitals Date Recorded Body height Body mass index (BMI) Body weight Provider Name and Address Organization Details Last Updated DateTime 01/26/2025 157.48 cm 39.3 kg/m2 14263.36 g Juliana Lewis CNA [facility] Mayi [employer] 01/26/2025 08:56:45 Date Recorded Body height Body mass index (BMI) Body weight Body temperature Heart rate Respiratory rate Oxygen saturation Pain severity - 0-10 verbal numeric rating [Score] - Reported Systolic And Diastolic Provider Name and Address Organization Details Last Updated DateTime 5 157.48 cm 39.2 kg/m2 57733.2 2 g 97.2 [degF] 89 /min 24 /min 96 % 0 80/60 mm[Hg] Wilma Richards RN [facility] [employer] 16:49:35 Date Recorded Body height Body mass index (BMI) Body weight Pain severity - 0-10 verbal numeric rating [Score] - Reported Provider Name and Address Organization Details Last Updated DateTime 2025 157.48 cm 39.3 kg/m2 38519.36 g 4 IMANI Jensen [facility] [employer] [facility] 2025 09:45:34 Date Recorded Body height Body mass index (BMI) Body weight Body temperature Heart rate Oxygen saturation Pain severity - 0-10 verbal numeric rating [Score] - Reported Respiratory rate Systolic And Diastolic Provider Name and Address Organization Details Last Updated DateTime 5 157.48 cm 38.9 kg/m2 63543.3 8 g 97.3 [degF] 79 /min 97 % 0 20 /min 120/80 mm[Hg] Wilma Richards RN [place] [employer] 5 12:29:47 Date Recorded Body height Body mass index (BMI) Body weight Body temperature Heart rate Respiratory rate Oxygen saturation Pain severity - 0-10 verbal numeric rating [Score] - Reported Systolic And Diastolic Provider Name and Address Organization Details Last Updated DateTime 5 157.48 cm 38.8 kg/m2 20483.6 3 g 97.3 [degF] 91 /min 20 /min 99 % 4 142/72 mm[Hg] Wilma Richards RN [facility] [employer] 5 15:47:56 Social History Question Answer Notes LastModified by Organizat ion Details LastModified Time Tobacco Smoking Status Former Smoker Wilma Richards RN [facility] [address] [facility] [employer] 03/16/2024 14:10:23 Do You Have An Advance Directive? No Information not available 01/13/2024 Is Blood Transfusion Acceptable In An Emergency? [...] Was Ill? No Information not available 01/13/2024 What Type Of Diet Are You Following? REGULAR Information not available 01/13/2024 Which Illicit Or Recreational Drugs Have You Used? Mj Information not available 01/13/2024 Have There Been Any Changes To Your Family Or Social Situation? No Information no t available 08/09/2025 Are There Any Guns Present In Your Home? No Information not available 01/13/2024 How Many Years Have You Used Illicit Or Recreational Drugs? 8 Information not available 03/16/2024 Do You Use Insect Repellent Routinely? No Information not available 01/13/2024 Where Do You Live? [place] Information not available 01/13/2024 Do You Have A Medical Power Of Pediatric Geneticist? No Information not available 01/13/2024 What Was The Date Of Your Most Recent Tobacco Screening? 2025 [email or web address] Information not available 2025 How Many Children Do You Have? 1 [...] Smoke? Yes Information no t available 01/13/2024 Are There Any Smokers In Your House? [...] IV Drugs? No Information not available 03/16/2024 Sex: Unknown Functional Status Question Answer Note LastModified by Organizat ion Details LastModified Time Do you use any illicit or recreational drugs? Yes Information not available 01/13/2024 Do you or have you ever used any other forms of tobacco or nicotine? Yes Information not available 03/16/2024 What is your level of alcohol consumption? None Information not available 03/05/2023 Do you or have you ever used smokeless tobacco? Never used smokeless tobacco Information not available 03/16/2024 Are you currently employed? Yes Information not available 07/27/2024 What is your occupation? [employer] Information not available 07/27/2024 Do you or have you ever used e-cigarettes or vape? Current user of electronic cigarettes Information not available 03/16/2024 What is your exercise level? None Information not available 01/13/2024 Mental Status Question Answer Note LastModified by Organization D etails LastModified Time Do you feel stressed (tense, restless, nervous, or anxious, or unable to sleep at night)? [id number] Information not available 03/16/2024 Family History Relationship Description Onset Age of this Age Resolved Age Notes LastModified by Organization Details LastModified Time Paternal Aunt Family history of malignant neoplasm Not available 2024 09:42:23 Paternal Aunt Diabetes mellitus Not available 2022 10:23:06 Maternal Uncle Family history of malignant neoplasm Not available 2024 09:42:23 Paternal Grandfather Family history of malignant neoplasm Not available 2024 09:42:23 Mother Diabetes mellitus Not available 2022 10:23:06 Medical History Condition Response HEADACHES/MIGRAINES Y OTHER # 1 ANXIETY DISORDER Y DEPRESSION (INCLUDING POST ) Y HYPERTENSION Y Gynecological History Statement/Question Response Flow Moderate Date of LMP 01/13/2025 Duration of Flow (days) 4 Current Control Method Vaginal Rin g Age at Menarche 12 Most Recent Mammogram [...] Time meningococcal MCV4P 5 completed Not Available [employer] 05/30/2023 15:35:49 Past Encounters Encounter ID Performer Location Encounter Start Date Encounter Closed Date Diagnosis/Indication Diagnosis SNOMED-CT Code Diagnosis ICD10 Code Diagnosis IMO Codes Diagnosis Note [id number] Kairna Dey MD [facility] [address] [place] [address] y , [place] [address] 03/21/2022 00:00:00 03/21/2022 20:49:53 [id number] Karina Dey MD [facility] [address] [place] [address] y , [place] [address] 05/22/2022 00:00:00 05/22/2022 18:59:14 [id number] Karina Dey MD [facility] [address] [place] [address] [place] [address] 06/20/2022 00:00:00 06/20/2022 13:33:29 [id number] Karina Dey MD [facility] [address] [place] [address] [place] [address] 07/15/2022 00:00:00 07/16/2022 08:36:46 [id number] Karina Dey MD [facility] [place] [address] [place] [address] [place] [address] 08/07/2022 00:00:00 08/08/2022 05:52:52 [id number] Karina Dey MD [facility] [address] [place] [address] [place] [address] 09/20/2022 00:00:00 09/20/2022 17:19:30 [id number] Karina Dey MD [facility] [place] [facility] [address] [place] [address] [place] [address] 12/19/2022 16:00:25 12/19/2022 16:39:59 Morbid obesity 467240384 E66.01 Continue weight loss efforts. Exercise regularly Anxiety 06581470 F41.9 Continue alprazolam [id number] Han Ambrosio MD [facility] [address] [place] [address] 03/05/2023 10:05:47 03/05/2023 11:02:14 Pain of left knee joint 3589488413 75577 M25.562 [id number] Han Ambrosio MD [facility] [address] [place] [address] 03/26/2023 10:17:28 03/26/2023 10:56:03 Injury of right knee [id number] 3687347 M25.562 [id number] Han Ambrosio MD [facility] [address] [place] [address] 04/23/2023 10:57:42 04/23/2023 11:22:27 Pain of left knee joint 3703000230 19239 M25.562 Closed fra cture of tibial plateau 642600073 S82.102D [id number] Lio Mazariegos MD [address] [address] 01/13/2024 09:41:57 01/13/2024 10:37:12 Paronychia of toe of right foot 5939794379 5342760 L03.031 Carpal any nima syndrome of right wrist 3598080916 01338 G56.01 [id number] Lio Mazariegos MD [address] [address] 03/16/2024 13:55:45 03/16/2024 15:10:06 [facility] 42349496 J40 management 278 776123 Z39.1 Advised to avoid expressing , utilize cold packs, and continue with control as prescribed Plantar wa rt of right foot 8499598683 7157200 B07.0 Cryosurger y completed in office [id number] Lio Mazariegos MD [address] [address] 05/31/2024 14:18:50 05/31/2024 15:07:11 Pain of right hip joint 0604406775 02026 M25.551 Sprain of right hip 1178 647975 3667740 S73.101A Obesity 762609055 E66.9 [id number] Lio Mazariegos MD [address] [address] 07/27/2024 15:06:54 07/27/2024 16:30:08 Anxiety 91193353 F41.9 Has tried numerous medication s, patient states none helpAdvise d to see psych Abscess of skin and/or subcutaneous tissue 78242491 L02.91 Left eyelid Low back pain 122629746 M54.50 Advised to continue cyclobenza negin as neededAdvi sed to stretch at home, pt declines PTAdvised ice and heat [id number] Lio Mazariegos MD [address] [address] 09/24/2024 10:50:03 09/24/2024 11:58:32 Dizziness 198112045 R42 Worse with position changes Amenorrhea 42489622 N91. 2 states period is 10 days late, is using control [id number] Lio Mazariegos MD [address] [address] 11/16/2024 15:32:01 11/16/2024 16:41:26 Nausea and vomiting 20846222 R11.2 nausea and vomiting every morning x2 weeks. Seasonal a llergic rhinitis 910391334 J30.2 pt complains of excess nasal drainage and vomiting mucous in the morning Cannabis h yperemesis syndrome due to Cannabis dependence 8652344945 8074427 F12.288 Using DAB pen, advised to stop [id number] Han Ambrosio MD [facility] [address] [place] [address] 11/24/2024 09:12:20 11/24/2024 09:45:07 Pain of left knee joint 1096397418 55218 M25.562 Injury of left knee 4592 354959 94539 S89.92XA [id number] Han Ambrosio MD [facility] [address] [place] [address] 12/29/2024 10:45:39 12/29/2024 12:03:23 Pain of left knee joint 8541088671 83683 M25.562 042077 [id number] Han Ambrosio MD [facility] [address] [place] [address] 01/26/2025 08:53:42 01/26/2025 09:40:19 Pain of left knee joint 8395267187 96349 M25.562 121681 [id number] Lio Mazariegos MD [address] [address] 02/17/2025 16:41:44 02/17/2025 16:59:32 Paresthesia of hand 906087092 R20.2 218092 Present in the middle 3 fingers, believes she has damaged a nerve [id number] Han Ambrosio MD [facility] [address] [place] [address] 2025 09:41:22 2025 10:03:04 Pain of bilateral knee regions 1927921204 64686 M25.561 M25.562 76323511 [id number] Todd Sanchez [employer] [address] [address] 06/29/2025 12:15:48 06/29/2025 12:56:56 Acute otitis externa of right ear 9642524962 501763 H60.501 795714926 Itchy, inflamed, red [id number] Todd Sanchez [address] [address] 08/09/2025 15:38:09 08/09/2025 16:08:23 Migraine 28260896 G43.909 Chronic, good control with Qulipta Tinea pedis 8279451 B35. 3 99146151 Admits to excessive sweating and odor. Peeling present on feet Dysfunctio n of bilateral eustachian tubes 5766260375 747306 H69.93 77574734 Muffled sounds, mild fluid in middle ear History of anemia 455352 002 Z86.2 345210 Will check labs Health Concerns Section Related Observation LastModified by Organization Detai ls LastModified Time None Recorded Concern Status LastModified by Organization Details LastModified Time None Recorded Advance Directives Directive N: Payers Insurance Date Sequence Insurance Name Policy Number Policy Chong Covered Member ID Chong Member ID Guarantor Name 08/06/2025 1 [employer] - DOS ON OR AFTER 21 (MEDICAID REPLACEMENT - HMO) Eileen López [id number] Eileen López Notes Date Note Type Note Provider Name and Address Organization Details Recorded Time 02/17/2025 text/html Eileen López is a 24 year old female patient here today for left hand concerns. She states there was a small bump on the base of her middle finger, she thought that this was a keratin plug and pulled it out, what she removed was long and thin, like a piece of thread. She believes she may have pulled a nerve out. MILLI Nelson [address], [address], [place], [address], [employer] 02/17/2025 16:59:37 06/29/2025 text/html Eileen López is a 25 year old female patient here today for ear complaints She notes redness and itching of the right ear canal. She states she has been digging at this with a Q-tip MILLI Nelson [address], [address], [place], [address], [employer] 06/29/2025 12:55:21 08/09/2025 text/html Eileen López is a 25 year old female patient here today for multiple concerns. 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 She notes that this has been cauterized in the past. She has concerns with foggy hearing. She feels her nails are pitting - would like iron checked Concerns with feet peeling. KIMBERLY. She has a history of migraines, she feels that Qulipta worked well for her. Todd Sanchez, [employer] [address] [facility], [facility] [address], [place], [address], [facility] 08/09/2025 16:24:42 OBGyn Episode No OBEpisode recorded.
--- OUTSIDE RECORDS SUMMARY | 2025-08-27 12:57 | XMS_ITS | Continuity of Care Document ---
Author Organization [facility] [employer], [facility] Address [address] [place] [address] Care Team Providers Care Mice Raiser Name Role Phone TODD SANCHEZ Primary Care Provider [phone] TODD SANCHEZ Referring Provider Assessment No assessment recorded. Plan of Treatment Reminders Order Date Submit Date Provider Last Modified By Organization Details Last Modified Time Details Appointments None recorded. Lab None recorded. Referral None recorded. Procedures None recorded. Surgeries None recorded. Imaging None recorded. Medication Orders ciprofloxac in 0.3 %-dexametha sone 0.1 % ear drops,suspe nsion 2024 025 [id number], [address] [facility], [place], [place], [id number], 5 15:45:16 Patient TargetsNo targets recorded. Patient InstructionsNo instructions recorded. Reason for Referral None Reported. Problems Name Problem SNOMED Code Status Onset Date Resolution Date Notes Provider Name and Address Organization Details Recorded Time Injury of ankle 861533104 Completed 03/16/2024 MILLI Nelson [address] [facility], [facility] [address], [place], [address] , [facility] [employer] 4 14:22:22 Pain in pelvis 76639040 Active Not Available [facility] 3 15:35:49 Pain in limb 10223128 Active Not Available [employer] 3 15:35:49 Diverticu lar disease 528189579 Active 2016 Not Available [employer] 3 15:35:49 Migraine 75391404 Active 2022 Not Available [facility] 3 15:35:49 Nausea and vomiting 72779888 Active 2022 Not Available [facility] 3 15:35:49 Morbid obesity 350757683 Active 2022 Not Available [facility] 3 15:35:49 Anxiety 60597345 Active 2022 Not Available [facility] 3 15:35:49 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 2022 Not Available [facility] 3 15:35:49 Injury of right knee 86894510762 539067 Completed 202203/16/[address]24 [address]ILLI Nelson [address], [place], [address] , [employer] [facility] [employer] [facility] 4 14:24:11 Injury of left knee 88630934899 4106 Active 2022 Not Available [facility] 3 15:35:49 Fatigue 62205634 Active 2022 Not Available [facility] 3 15:35:49 Iliotibia l band friction syndrome of left knee 31672358362 9102 Completed 202203/16/2024 MILLI Nelson [address], [place], [address] , [facility] [employer] [facility] [employer] [facility] 4 14:22:19 Rib pain 024049793 Active 2022 Not Available [facility] 3 15:35:49 Fracture of tibial plateau 405277031 Completed 202203/16/[address]24 [address]ILLI Nelson [address], [place], [address] , [employer] [facility] [employer] [facility] 4 14:22:09 Pain of left knee joint 69630898142 4107 Active 2022 IMANI Jensen null, [place] [employer] [facility] [employer] [facility] 5 10:53:48 Closed fracture of tibial plateau 356466749 Active 2022 Not Available [facility] 3 15:35:49 Hyperemes is gravidaru m 67099409 Completed 202203/16/[address]24 [address]ILLI Nelson [address], [place], [address] , [employer] [facility] 4 14:22:13 Paronychi a of toe of right foot 47020212776 451801 Active 2023 MILLI Nelson [address], [place], [address] , [employer] [facility] 4 10:18:38 Carpal tunnel syndrome of right wrist 10596961317 9108 Active 2023 MILLI Nelson [address], [place], [address] , [employer] [facility] 4 10:19:21 Bronchiti s 40069673 Active 2023 MILLI Nelson [address], [place], [address] , [employer] [facility] 4 14:29:21 Plantar wart of right foot 57474608267 901227 Active 2023 MILLI Nelson [address], [place], [address] , [employer] [facility] 4 14:54:06 Pain of right hip joint 65582978612 9102 Active 2023 Lio Mazariegos MD [address], [place], [address] , [employer] [facility] 4 14:50:24 Sprain of right hip 67934691662 309806 Active 2023 Lio Mazariegos MD [address], [place], [address] , [employer] [facility] 4 14:51:01 Obesity 567346731 Active 2023 Lio Mazariegos MD [address], [place], [address] , [employer] 4 14:57:57 Abscess of skin and/or subcutane ous tissue 18725393 Active 2023 MILLI Nelson [address], [place], [address] , [employer] 4 15:45:00 Low back pain 384778066 Active 2023 MILLI Nelson [address], [place], [address] , [employer] 4 15:47:46 Dizziness 468364139 Active 2024 MILLI Nelson [address], [place], [address] , [employer] 5 11:30:21 Amenorrhe a 02338131 Active 2024 MILLI Nelson [address], [address], [place], [address] , [employer] 5 11:32:23 Vitamin D deficienc y 22715888 Active 2024 MILLI Nelson [address], [address], [place], [address] , [employer] 5 17:09:13 Seasonal allergic rhinitis 115313106 Active 2024 MILLI Nelson [address], [place], [address] , [employer] 5 16:28:36 Continuou s nondepend ent harmful pattern of use of cannabis 941972882 Active 2024 MILLI Nelson [address], [place], [address] , [employer] 5 16:37:01 Cannabis hyperemes is syndrome due to Cannabis dependenc e 85048846358 647391 Active 2024 MILLI Nelson [employer], [address], [place], [address] , [facility] 5 16:37:29 Paresthes ia of hand 547519356 Active 2024 MILLI Nelson [employer], [address], [place], [address] , [facility] 5 16:55:31 Pain of bilateral knee regions 31718965949 4102 Active 2024 IMANI Jensen, [facility] 5 09:46:10 Candidias is of vagina 10765784 Active 2024 MLILI Nelson [employer], [address], [place], [address] , [facility] 5 14:11:16 Acute otitis externa of right ear 94971137047 95206 Active 2024 MILLI Nelson [employer], [address], [place], [address] , [facility] 5 12:41:17 Tinea pedis 8003132 Active 2024 MILLI Nelson [employer], [employer], [place], [address] , [facility] 5 15:55:44 Dysfuncti on of bilateral eustachia n tubes 75678277915 89395 Active 2024 MILLI Nelson [employer], [address], [place], [address] , [facility] 5 15:56:20 Problem Notes None recorded. Procedures Surgical History Date Name Laterality Status Provider Name and Address Organization Details Recorded Time Cerumen Removal completed MILLI Nelson [address], [place], [address], [employer] [facility] 06/29/2025 12:54:52 4 Cryosurgery Warts/Skin Tags completed Todd Silvaalyseangelita, [employer] [address], [place], [address], [employer] 03/16/2024 14:52:35 Imaging Results None recorded. Procedure Notes None recorded. Medical Equipment None Reported. Allergies Allergen ID Allergen Name Allergen Category Reaction Reaction Severity Criticality Documentation Date Start Date Code Code System Note Provider Name and Address Organization Details Recorded Time 95305 Buspar medicatio n nausea vomiting Not available Not available Not available 10/30/2022 49884 0 RxNorm Not Available [facility] 3 07:34:58 38801 clonidine medicatio n Not available Not available Not available 01/13/2024 2599 RxNorm JOSE Ron, [place] [employer] [facility] [employer] [facility] 4 09:50:27 55380 lorazepam medicatio n Not available Not available Not available 07/27/2024 6470 RxNorm Wilma Richards RN [facility] [place], [place] [employer] [facility] [employer] [facility] 4 15:27:59 61603 buspirone medicatio n vomiting Not available Not available 08/09/20252020 1827 RxNorm Not Available [employer] 5 04:05:15 04257 lemon allergeni c extract food,medi cation hives Not available Not available 08/09/20252020 69190 2 RxNorm Not Available [employer] - prod 5 04:05:15 29999 lemon oil food,medi cation rash Not available [facility] 08/09/20252020 00298 53 RxNorm Not Available [employer] - prod 5 04:05:18 06603 lemon juice food Not available Not available Not available 08/09/2025 46030 55 RxNorm unrec ogniz ed react ion (text : HIVES , code: [id number]) (from exter nal sourc rj) Not Available [employer] - prod 5 04:05:46 93402 escitalop kin Not available Not available Not available Not available 08/09/2025 37319 8 RxNorm Not Available [place] [facility] [employer] - [employer] 5 04:05:46 Medications [...] oral route as needed for 30 days. 06/295 completed Not Available Not Available Not Available [...] TABLET BY MOUTH EVERY 12 HOURS NEEDED 11/26 /2024 completed Not Available Not Available Not Available [...] enidate ER 40 mg capsule,ext ended release [id number] 06/05 completed Not Available Not Available [...] Updated DateTime 5 157.48 cm 38.9 kg/m2 18910.3 8 g 97.3 [degF] 79 /min 97 % 0 20 /min 120/80 mm[Hg] Wilma Richards RN [facility] [employer] 12:29:47 Social History Question Answer Notes LastModified by Organizat ion Details LastModified Time Tobacco Smoking Status Former Smoker Wilma Richards RN [facility] [place], [facility] [employer] 03/16/2024 14:10:23 Do You Have An Advance [...] Do You Have A Medical Power Of Car Dispatcher? No Information not available 01/13/2024 What Was The Date Of Your Most Recent Tobacco Screening? 2025 [email or web address] Information not available 2025 How Many Children [...] anxious, or unable to sleep at night)? [id number] Information not available 03/16/2024 Family History Relationship [...] Time meningococcal MCV4P 5 completed Not Available [facility] 05/30/2023 15:35:49 Past Encounters Encounter ID Performer Location Encounter Start Date Encounter Closed Date Diagnosis/Indication Diagnosis SNOMED-CT Code Diagnosis ICD10 Code Diagnosis IMO Codes Diagnosis Note [id number] MILLI Nelson [facility] [place] [id number] 06/29/2025 12:15:48 06/29/2025 12:56:56 Acute otitis externa of right ear 0787409209 497559 H60.501 637060603 Itchy, inflamed, red Health Concerns Section Related Observation LastModified by Organization Detai ls LastModified Time None Recorded Concern Status LastModified by Organization Details LastModified Time None Recorded Payers Encounter Date Sequence Insurance Name Policy Number Policy Chong Covered Member ID Chong Member ID Guarantor Name 06/29/2025 1 [facility] ON OR AFTER 03/01/21 (MEDICAID REPLACEMENT - HMO) Eileen López [id number] Eileen López Notes Date Note Type Note Provider Name and Address Organization Details Recorded Time 06/29/2025 text/html Eileen López is a 25 year old female patient here today for ear complaints She notes redness and itching of the right ear canal. She states she has been digging at this with a Q-tip MILLI Nelson [address] [facility], [facility] [address], [place], [address], [facility] [employer] [facility] 06/29/2025 12:55:21 OBGyn Episode No OBEpisode recorded.
--- OUTSIDE RECORDS SUMMARY | 2025-08-27 12:57 | XMS_ITS | Continuity of Care Document ---
Author Organization [place] - [facility] [facility], [facility] Dre Address [address] [facility] [place] [address] Care Team Providers Care Optical Design Engineer Name Role Phone TODD SANCHEZ Primary Care Provider [phone] TODD SANCHEZ Referring Provider Assessment No assessment recorded. Plan of Treatment Reminders Order Date Submit Date Provider Last Modified By Organization Details Last Modified Time Details Appointments None recorded. Lab vitamin B12 + folate, serum or blood 2024 025 [facility] (Lab), [address] [place], [address], 5 13:57:19 iron + total iron-bindin g capacity (TIBC), serum [address] (Lab), [address] [place], [address], 10:41:11 vitamin D3, 25-hydroxy, serum [address] (Lab), [address] [place], [address], 10:41:11 Referral None recorded. Procedures None recorded. Surgeries None recorded. Imaging None recorded. Medication Orders cetirizine 10 mg tablet 2024 025 [id number], [address] [facility] [place], [id number], 5 15:57:13 Qulipta 60 mg tablet 2024 025 [facility] #[id number], [address] [place], [place], [id number], 5 15:57:15 clotrimazol e-betametha sone 1 %-0.05 % topical cream 2024 025 [facility] #[id number], [address] [place], [place], [id number], 5 15:57:15 Patient TargetsNo targets recorded. Patient InstructionsNo instructions recorded. Reason for Referral None Reported. Results Created Date Observation Date Name Description Value Unit Range Abnormal Flag Note LastModifiedBy Organization Detail LastModifiedTime Result Notes None recorded. Problems Name Problem SNOMED Code Status Onset Date Resolution Date Notes Provider Name and Address Organization Details Recorded Time Injury of ankle 449814443 Completed 03/16/2024 MILLI Nelson [address] [facility] [address], [place], [address] , [facility] [employer] 4 14:22:22 Pain in pelvis 66865266 Active Not Available [facility] 3 15:35:49 Pain in limb 63351007 Active Not Available [facility] 3 15:35:49 Diverticu lar disease 024787063 Active 2016 Not Available [facility] 3 15:35:49 Migraine 48991795 Active 2022 Not Available [facility] 3 15:35:49 Nausea and vomiting 33966514 Active 2022 Not Available [facility] 3 15:35:49 Morbid obesity 147287757 Active 2022 Not Available [facility] 3 15:35:49 Anxiety 60979784 Active 2022 Not Available [facility] 3 15:35:49 Labyrinth itis 08823865 Active 2022 Not Available [facility] 3 15:35:49 Injury of right knee 90261779061 448109 Completed 202203/16/[address] Nelson [address], [place], [address] , [facility] [employer] [facility] [employer] [facility] 4 14:24:11 Injury of left knee 66269324605 4106 Active 2022 Not Available [facility] 3 15:35:49 Fatigue 36030508 Active 2022 Not Available [facility] 3 15:35:49 Iliotibia l band friction syndrome of left knee 14217074519 9102 Completed 202203/16/2024 MILLI Nelson [address], [place], [address] , [facility] [employer] [facility] [facility] [employer] [facility] 4 14:22:19 Rib pain 550659320 Active 2022 Not Available [facility] 3 15:35:49 Fracture of tibial plateau 052621634 Completed 202203/16/2024 [address]ILLI Nelson [address], [place], [address] , [facility] [employer] [facility] [employer] [facility] 4 14:22:09 Pain of left knee joint 50386586298 4107 Active 2022 Teresa Britt, Ila null, [place] [employer] [facility] [facility] [employer] [facility] 5 10:53:48 Closed fracture of tibial plateau 736416281 Active 2022 Not Available [facility] 3 15:35:49 Hyperemes is gravidaru m 54858014 Completed 202203/16/2024 [address]ILLI Nelson [address], [place], [address] , [facility] [employer] [facility] 4 14:22:13 Paronychi a of toe of right foot 43981836073 493306 Active 2023 MILLI Nelson [address], [place], [address] , [place] [facility] 4 10:18:38 Carpal tunnel syndrome of right wrist 54980932138 9108 Active 2023 MILLI Nelson [address], [place], [address] , [place] [facility] 4 10:19:21 Bronchiti s 61567429 Active 2023 MILLI Nelson [address], [place], [address] , [place] [facility] 4 14:29:21 Plantar wart of right foot 55479362144 244340 Active 2023 MILLI Nelson [address], [place], [address] , [place] [facility] 4 14:54:06 Pain of right hip joint 35309352382 9102 Active 2023 Lio Mazariegos MD [address], [place], [address] , [facility] 4 14:50:24 Sprain of right hip 23563857956 285320 Active 2023 Lio Mazariegos MD [address], [place], [address] , [facility] 4 14:51:01 Obesity 848796460 Active 2023 Lio Mazariegos MD [address], [place], [address] , [facility] 4 14:57:57 Abscess of skin and/or subcutane ous tissue 35513319 Active 2023 MILLI Nelson [address], [place], [address] , [place] [facility] 4 15:45:00 Low back pain 841220774 Active 2023 MILLI Nelson [address], [place], [address] , [employer] [facility] [employer] [facility] 4 15:47:46 Dizziness 291084387 Active 2024 MILLI Nelson [address], [place], [address] , [facility] [employer] [facility] 5 11:30:21 Amenorrhe a 68558482 Active 2024 MILLI Nelson [address], [place], [address] , [facility] [employer] 5 11:32:23 Vitamin D deficienc y 63675700 Active 2024 MILLI Nelson [address], [place], [address] , [facility] [employer] [facility] 5 17:09:13 Seasonal allergic rhinitis 812966592 Active 2024 MILLI Nelson [address], [place], [address] , [employer] [facility] 5 16:28:36 Continuou s nondepend ent harmful pattern of use of cannabis 860740197 Active 2024 MILLI Nelson [address], [place], [address] , [employer] [facility] [employer] [facility] 5 16:37:01 Cannabis hyperemes is syndrome due to Cannabis dependenc e 48063061137 928159 Active 2024 MILLI Nelson [address], [place], [address] , [employer] [facility] [employer] [facility] 5 16:37:29 Paresthes ia of hand 721914393 Active 2024 MILLI Nelson [address], [place], [address] , [facility] [facility] [employer] [facility] 5 16:55:31 Pain of bilateral knee regions 79285575832 4102 Active 2024 IMANI Jensen, [facility] [employer] [facility] 5 09:46:10 Candidias is of vagina 82779502 Active 2024 MILLI Nelson [address], [place], [address] , [employer] [facility] [employer] 5 14:11:16 Acute otitis externa of right ear 93239602667 69387 Active 2024 MLILI Nelson [address], [place], [address] , [facility] [facility] [employer] 5 12:41:17 Tinea pedis 5825257 Active 2024 MILLI Nelson [address], [place], [address] , [employer] [facility] [employer] 5 15:55:44 Dysfuncti on of bilateral eustachia n tubes 71936056129 20557 Active [address], [place], [address] , [employer] [facility] [employer] 5 15:56:20 Problem Notes None recorded. Procedures Surgical History Date Name Laterality Status Provider Name and Address Organization Details Recorded Time 5 Cerumen Removal completed MILLI Nelson [address], [place], [address], [employer] [facility] [employer] 06/29/2025 12:54:52 4 Cryosurgery Warts/Skin Tags completed MILLI Nelson [address], [place], [address], [facility] [facility] [employer] 03/16/2024 14:52:35 Imaging Results None recorded. Procedure Notes None recorded. Medical Equipment None Reported. Allergies Allergen ID Allergen Name Allergen Category Reaction Reaction Severity Criticality Documentation Date Start Date Code Code System Note Provider Name and Address Organization Details Recorded Time 10868 Buspar medicatio n nausea vomiting Not available Not available Not available 10/30/2022 82096 0 RxNorm Not Available [facility] 3 07:34:58 79877 clonidine medicatio n Not available Not available Not available 01/13/2024 2599 RxNorm Wilma Richards RN null, [facility] 4 09:50:27 24522 lorazepam medicatio n Not available Not available Not available 07/27/2024 6470 RxNorm Wilma Richards RN null, [facility] 4 15:27:59 76010 buspirone medicatio n vomiting Not available Not available 08/09/20252020 1827 RxNorm Not Available [employer] [facility] [employer] - prod 5 04:05:15 43564 lemon allergeni c extract food,medi cation hives Not available Not available 08/09/20252020 10210 2 RxNorm Not Available [employer] - prod 5 04:05:15 00515 lemon oil food,medi cation rash Not available [facility] 08/09/20252020 03412 53 RxNorm Not Available [employer] - prod 5 04:05:18 87156 lemon juice food Not available Not available Not available 08/09/2025 89250 55 RxNorm unrec ogniz ed react ion (text : HIVES , code: 92459 [id number]) (from exter nal sour e) Not Available [facility] [facility] [employer] - prod 5 04:05:46 25347 escitalop kin Not available Not available Not available Not available 08/09/2025 89600 8 RxNorm Not Available [facility] [employer] External Data Service - prod 5 04:05:46 [...] enidate ER 40 mg capsule,ext ended release [id number]- 50 06/05 completed Not Available Not Available [...] Updated DateTime 5 157.48 cm 38.8 kg/m2 64883.6 3 g 97.3 [degF] 91 /min 20 /min 99 % 4 142/72 mm[Hg] Wilma Richards RN [employer] 15:47:56 Social History Question Answer Notes LastModified by Organizat ion Details LastModified Time Tobacco Smoking Status Former Smoker Wilma Richards RN [facility], [employer] 03/16/2024 14:10:23 Do You Have An Advance [...] Do You Have A Medical Power Of Plater Production? No Information not available 01/13/2024 What Was The Date Of Your Most Recent Tobacco Screening? 2025 [email or web address] Information not available 2025 How Many Children [...] anxious, or unable to sleep at night)? [id number] Information not available 03/16/2024 Family History Relationship [...] ICD10 Code Diagnosis IMO Codes Diagnosis Note [id number] MILLI Nelson [facility] [address] [place] [address] 08/09/2025 15:38:09 08/09/2025 16:08:23 Migraine 23214046 G43.909 Chronic, good control with Qulipta Tinea pedis 2589863 B35. 3 73304331 Admits to excessive sweating and odor. Peeling present on feet Dysfunctio n of bilateral eustachian tubes 4985416042 301174 H69.93 13721356 Muffled sounds, mild fluid in middle ear History of anemia 938135 002 Z86.2 488382 Will check labs Health Concerns Section Related Observation LastModified by Organization Detai ls LastModified Time None Recorded Concern Status LastModified by Organization Details LastModified Time None Recorded Payers Encounter Date Sequence Insurance Name Policy Number Policy Chong Covered Member ID Chong Member ID Guarantor Name 08/09/2025 1 [facility] ON OR AFTER 03/01/21 (MEDICAID REPLACEMENT - HMO) Eileen López [id number] Eileen López Notes Date Note Type Note Provider Name and Address Organization Details Recorded Time 08/09/2025 text/html Eileen López is a 25 [...] feels that Qulipta worked well for her. MILLI Nelson [address] [facility] [facility] [address], [place], [address], [facility] [employer] 08/09/2025 16:24:42 OBGyn Episode No OBEpisode recorded.
[2025-08-27 14:31] LABS: Influenza A QL RT-PCR Negative (Negative); Influenza B QL RT-PCR Negative (Negative); RSV RNA, RT-PCR Negative (Negative); SARS-CoV-2 RNA PCR Negative (Negative)
--- OUTSIDE RECORDS SUMMARY | 2025-08-27 14:47 | XMS_ITS | Clinical Summary ---
Author Organization [facility] Address [address] [place] [address] Care Team Providers Care Workshop Manager Name Role Phone Karina Warren MD Primary Care Provider [phone] Allergies Active Allergy Reactions Criticality Noted Date [...] patient's age to complete this topic [place] [address] [place] [address] Care Teams Workshop Manager Relationship Specialty Start Date End Date Karina Warren MD [address] [place] [address] PCP - General FAMILY PRACTICE 04/03/22
--- OUTSIDE RECORDS SUMMARY | 2025-08-27 14:47 | XMS_ITS | Clinical Summary ---
Author Organization [facility] Address [address] [place] [address] Care Team Providers Care Metalizing Machine Operator Automatic Name Role Phone Karina Dey MD Primary Care Provider [phone] Allergies Active Allergy Reactions Criticality Noted Date [...] on file Legal Sex Female 11:01 AM MANAGER INTEGRATION Gender Identity Not on file Sexual Orientation Not on file Last Filed Vital Signs Vital Sign Reading Time Taken Comments Blood Pressure 118/62 11/09/2024 2:41 PM CDT Pulse 68 11/09/2024 2:41 PM CDT Temperature 36.7 C (98.1 F) 08/02/2021 11:28 AM MANAGER INTEGRATION Respiratory Rate 16 08/02/2021 11:28 AM MANAGER INTEGRATION Oxygen Saturation 99% 11/09/2024 2:41 PM CDT [...] Varicella Vaccines Completed 06/06/2017, 03/13/[address] [place] [id number] [facility] [address] [place] [id number] [facility] Care Teams Metalizing Machine Operator Automatic Relationship Specialty Start Date End Date Karina Dey MD [address] [place] [address] [place] [address] PCP - General Family Medicine 03/14/22
--- NOTE | 2025-08-27 15:42 | ED.URI ---
HPI - URI/Sore Throat General Chief Complaint: Upper Respiratory Infection Stated Complaint: sinus infection Time Seen by Provider: 08/27/25 14:35 History of Present Illness HPI Narrative: Patient is a 25-year-old female who presents to the ER with a 4-5 day history of congestion, sore throat, wheezing, and cough. She reports she has been coughing up ?green stuff. Patient also endorses some ear fullness. She endorses a history of mental health issues, migraines, and vitamin-D deficiency. Patient denies any chest pain, acute back pain, or recent fevers. She reports her 17-dsdgg-blt daughter was here in the ER earlier today and diagnosed with an ear infection. Related Data Home Medications ?Medication ?Instructions ?Recorded ?Confirmed ?Last Taken ?Type etonogestrel 0.12 mg-ethinyl 1 vag ring vaginal ONCE 04/11/25 04/11/25 Unknown History estradiol 0.015 mg/24 hr vaginal ring (NuvaRing) sertraline 50 mg tablet 50 mg PO DAILY 04/11/25 04/11/25 Unknown History Allergies Allergy/AdvReac Type Severity Reaction Status Date / Time clonazepam Allergy Intermediate Other Verified 08/27/25 12:58 latex Allergy Other Verified 08/27/25 12:58 lemon Allergy Hives Verified 08/27/25 12:58 buspirone AdvReac Unknown Nausea and Verified 08/27/25 12:58 Vomiting escitalopram (From Lexapro) AdvReac Migraine Verified 08/27/25 12:58 red dye AdvReac Vomiting Verified 08/27/25 12:58 Review of Systems Review of Systems: All systems reviewed & are unremarkable except as noted in HPI and below PMFSH Past Medical History Medical History Anxiety and depression Asthma PIH ( induced hypertension) History of borderline personality disorder ADHD Surgical History Surgical History History of adenoidectomy History of tonsillectomy S/p bilateral myringotomy with tube placement As child Family History Family History Mother Diabetes mellitus Father Bipolar 1 disorder Other Cancer Social History Social History Smoking status: Current every day smoker Tobacco type: e-cigarettes/vaping Second hand tobacco smoke exposure: Yes Additional smoking assessment comments: No vaping for 2 months Substance use: never Lack of Transportation: No Lack of Food: Never True Current Housing: I Have Housing Concerned About Future Housing: No Difficulty Paying Gas/Electric Bills: No Difficulty Paying for Meds: No Currently Unemployed: No Education: High School Diploma/GED Difficulty w/ Childcare or Family Care: No Gender identity (if verbalized by the patient): Female Sexual Orientation (if Verbalized by the Patient): Straight or Heterosexual Spiritual care concerns: No Exam Narrative: GENERAL: Well appearing, obese, non-toxic, in no acute distress. HEAD: Normocephalic, atraumatic. NECK: Supple. No adenopathy, no masses. RESPIRATORY: Airway patent, respirations nonlabored. Clear to auscultation bilaterally, no rales, rhonchi. Mild upper lobe wheezing bilaterally. CARDIOVASCULAR: Regular rate and rhythm without murmurs, rubs, or gallops. Peripheral pulses 2+ and equal bilaterally. ABDOMINAL: Soft, nontender, nondistended, no hepatosplenomegaly. Normoactive BS. MUSCULOSKELETAL: Moves all extremities. Strength/ROM intact without gross deformities. SKIN: Warm, dry, normal color. No rashes. NEURO: A&O X3. Speech clear. Cranial nerves II-XII intact. No ataxic movements. PSYCHIATRIC: Appropriate mood and affect. Normal interaction. Course Vital Signs Vital signs: Vital Signs Oxygen Delivery Room Air 08/27/25 14:20 Oxygen Delivery Room Air 08/27/25 14:20 MDM MDM Narrative Medical decision making narrative: Patient is a 25-year-old female who presents to the ER with a 4-5 day history of congestion, sore throat, wheezing, and cough. She reports she has been coughing up ?green stuff. Patient also endorses some ear fullness. She endorses a history of mental health issues, migraines, and vitamin-D deficiency. Patient denies any chest pain, acute back pain, or recent fevers. She reports her 76-ujyzs-wst daughter was here in the ER earlier today and diagnosed with an ear infection. Labs Ordered: COVID/flu/RSV, strep swab Imaging Ordered: Chest x-ray Medications Ordered: Prednisone 40 mg p.o., DuoNeb Results: Patient's chest x-ray indicates no acute abnormalities. Diagnosis: Upper respiratory infection Patient Education/Shared MDM: Results of lab work and imaging shared with patient. She endorses improvement of symptoms following medication administration. Patient strongly advised to maintain hydration status upon discharge and follow-up with her PCP for further evaluation. She will be discharged home with a prescription for a Medrol Dosepak, Tessalon Perles and albuterol inhaler. Strict return precautions provided. Patient verbalized understanding and is in agreement with plan. Vital signs stable at time of discharge. All questions answered. Differential Diagnosis Differential Diagnosis: Upper respiratory infection, pneumonia, COVID/flu/RSV, strep throat Lab Data MDM Lab Attestation statement: I personally reviewed the patient's lab results. Labs: Lab Results 08/27/25 08/27/25 Range/Units 13:48 16:07 Influenza A (RT-PCR) Negative (Negative) Influenza B (RT-PCR) Negative (Negative) RSV (RT-PCR) Negative (Negative) SARS-CoV-2 RNA (RT-PCR) Negative (Negative) Group A Strep (PCR) Not detected (Negative) Imaging Data Attestation: I personally reviewed and interpreted this imaging study as follows: Radiologist's impression: ITS Impressions Chest X-Ray 08/27/25 16:29 IMPRESSION: 1. No acute findings. Discharge Plan Discharge Clinical Impression: Upper respiratory infection Patient Disposition: Home Condition: Stable Instructions: Antibiotic Form, Upper Respiratory Infection (ED) Additional Instructions: Please return to the ER with any worsening symptoms. Follow-up with primary care provider for further evaluation. Take all medications as prescribed, including regularly scheduled medications. You may take Tylenol and/or ibuprofen for pain control. Please use an albuterol inhaler as needed for wheezing. You also be prescribed to 5 days history of steroids to help treat your symptoms. Please take Tessalon Perles as needed to treat your cough. Patient Language: Swedish Prescriptions: New albuterol sulfate 90 mcg/actuation aerosol powdr breath activated 2 inh inhalation Q6H PRN (Reason: shortness of breath or wheezing) Qty: 1 0RF benzonatate 100 mg capsule 100 mg PO TID Qty: 14 0RF methylprednisolone [Medrol (Favio)] 4 mg tablets,dose pack See Rx Instructions .ROUTE .COMPLEX Qty: 21 0RF Rx Instructions: for 6 days methylprednisolone [Medrol (Favio)] 4 mg tablets,dose pack See Rx Instructions .ROUTE .COMPLEX Qty: 21 0RF Rx Instructions: for 6 days No Action etonogestrel-ethinyl estradiol [NuvaRing] 0.12-0.015 mg/24 hr ring 1 vag ring vaginal ONCE sertraline 50 mg tablet 50 mg PO DAILY Follow-up/Referrals: Eldon,Nieves Jeff, MANAGER OF PRODUCTION [Primary Care Provider, Unknown] Stand Alone Forms: Work/School Release IP Time of Disposition: 17:10
[2025-08-27] MEDS: IPRATROPIUM 0.5 MG/ALBUTEROL SULFATE 2.5 MG (BASE) AMPUL.NEB 3 ML INHALATION (15:53)
[2025-08-27 16:35] LABS: Strep Group A RT-PCR NOT DETECTED (Negative)
== END 2025-08-27 17:16 | disposition home or self-care (01) ==
PROVIDERS: Emergency Medicine; Emergency Provider Registered Nurse
DX: J06.9 Acute upper respiratory infection, unspecified (principal); Z20.822 Contact with and (suspected) exposure to COVID-19; J45.909 Unspecified asthma, uncomplicated; F41.9 Anxiety disorder, unspecified; F32.A Depression, unspecified; F60.3 Borderline personality disorder; F90.9 Attention-deficit hyperactivity disorder, unspecified type; Z87.891 Personal history of nicotine dependence; Z79.899 Other long term (current) drug therapy
CPT/HCPCS: 71046; 87637; 87651; 94640; 99283; J7512